=== PATIENT | male | born 1935 ===

== ENCOUNTER 2017-07-07 11:28 | Inpatient (IN) ==
[2017-07-07] MEDS ORDERED: ACETAMINOPHEN 325 MG TABLET PO PRN (11:38)
[2017-07-07] MEDS ORDERED: GLUCAGON 1 MG VIAL IM PRN (11:38)
[2017-07-07] MEDS ORDERED: DEXTROSE 50% 25 GM/50 ML SYRINGE IV PRN (11:38)
[2017-07-07] MEDS ORDERED: ONDANSETRON 4 MG/2 ML VIAL IV PRN (11:38)
--- NOTE | 2017-07-07 11:55 | General Surg History&Physical ---
Assessment and Plan (1) Peripheral arterial disease Problem details: Peripheral arterial disease of the right lower extremity with large ulcerations and significant rest pain. He has an abnormal vascular study from [facility] that warrants at least a CTA and possibly formal arteriogram, but we may be looking at AKA. Status: Acute Assessment and plan: 07/07/17 Admit for baseline labs and, depending on his creatinine, we will plan for CTA vs. formal arteriogram to see if any interventional procedures could be of benefit. Certainly his wounds are very advanced, and will require a prolonged period of care for healing, even with reconstituted blood flow. He and his family are aware of this. (2) Diabetes mellitus Status: Chronic Assessment and plan: Type 2, DM. We will monitor, place on sliding scale insulin, and have Hospital Medicine follow closely with us. We will need to watch his creatinine closely as well, considering that he will likely be placed on antibiotics which could potentially be nephrotoxic. Qualifiers: Diabetes mellitus type: type 2 (3) Ischemic cardiomyopathy Status: Chronic Assessment and plan: History of ischemic cardiac disease. Presently the patient is asymptomatic but appears to be extremely debilitated due to this and his other medical comorbidities. Dr Nelson has followed in the past. We will monitor his labs and fluid intake and get cardiac consult. History of Present Illness Chief complaint: Ischemic right lower leg History of present illness: Mr. Osborne is a 82 year old male Home Medications Medication Instructions Recorded Confirmed Type Aspirin Chew Tab 1 tablet PO DAILY 05/31/15 06/02/16 History Simvastatin [Zocor] 1 tablet PO BEDTIME 05/31/15 06/02/16 History Albuterol Inhaler [Proventil 2 puff INH Q4H PRN #1 inhaler 06/02/15 05/31/16 Rx Inhaler] Furosemide Tab [Lasix Tab] 40 mg PO DAILY 05/03/16 06/02/16 History Allergies Allergy/AdvReac Type Severity Reaction Status Date / Time No Known Allergies Allergy Verified 06/02/16 07:19 Medical,Surgical,& Family Hx - Medical History Cardio: History of: Hypertension, Pacemaker, PVD HEENT: History of: Eye Problem (CATARACTS), Dental Problems Endocrine: History of: Diabetes Mellitus (NIDDM) Rheumatology: History of;: Rheumatoid Arthritis Musculoskeletal: History of: Amputation (LEFT LOWER ;LEG) - Surgical History Cardiac Surgeries: Sugical HX of: Cardiac Catheterization, Cardiac Surgery (CABG ), Internal Defibrillator (dual chamber BiV AICD system DR NELSON) HEENT Surgeries: Surgical HX of: Eye Surgery (COD) - Family History Family History: Reports;: Family Diabetes - Social History Smoking Status: Never smoker Exam - Constitutional General appearance: other (Mr Osborne is a thin, frail appearing elderly [place] male who is somewhat reserved but pleasant, alert, and oriented. He is uncomfortable but cooperative and gives an accurate & appropriate history.) - Head Head exam: Present: normocephalic - Eye Eye exam: Present: EOMI Pupils: Present: YAYO - ENT Mouth exam: Present: normal voice, dry mucosa - Neck Neck exam: Present: trachea midline. Absent: lymphadenopathy - Respiratory Respiratory exam: Present: clear to auscultation bilaterally. Absent: rales, wheezes - Cardiovascular Cardiovascular exam: Present: other (Pacemaker vs ICD palpable in left upper chest; no unusual swelling or tenderness. Normal rate and rhythm without unusual bruit or rub.) - GI/Abdominal GI/Abdominal exam: Present: hypoactive bowel sounds, soft. Absent: guarding, tenderness - Extremities Exam Extremities exam: Present: other (Left AKA, well healed. Right lower extremity is hyperemic with pitting edema. There is diffuse ulceration along the lateral lower leg, ankle, and foot, with moist eschar present along the heel and achilles region, and several punctate deep ulcerations on the anterior lower leg. Absent palpable pulses and capillary refill. ) - Back Exam Back exam: Present: other (He does have some degree of skin breakdown on the sacrum; I am unable to completely assess this area here in the office.) - Skin Skin exam: Present: other (As noted above) - Constitutional Constitutional: Present: anorexia, frequent falls, weakness, weight loss - Cardiovascular Cardiovascular: Present: other (Significant RLE rest pain) - Musculoskeletal Musculoskeletal: Present: muscle weakness Quality Measures - VTE Contraindication to Pharmacological VTE Prophylaxis: High Risk of Bleeding Contraindication to Mechanical VTE Prophylaxis: Ischemic Vascular Disease
--- NOTE | 2017-07-07 13:12 | Cardiology Consult Note ---
<Vianca Malin E - Last Filed: 07/07/17 12:49> Assessment and Plan - Time spent with patient Time spent with patient: Greater than 30 minutes (1) Dyslipidemia Status: Chronic Assessment and plan: SEE PLAN OF CARE LISTED BELOW Current Visit: Yes (2) Leg pain Status: Acute Assessment and plan: SEE PLAN OF CARE LISTED BELOW Current Visit: Yes Qualifiers: Laterality: right Qualified Code(s): M79.604 - Pain in right leg (3) Language barrier Status: Chronic Assessment and plan: SEE PLAN OF CARE LISTED BELOW Current Visit: Yes (4) ICD (implantable cardioverter-defibrillator) in place Status: Chronic Assessment and plan: SEE PLAN OF CARE LISTED BELOW Current Visit: Yes (5) Preoperative cardiovascular examination Status: Acute Assessment and plan: SEE PLAN OF CARE LISTED BELOW Current Visit: Yes (6) Diabetes mellitus Status: Chronic Assessment and plan: SEE PLAN OF CARE LISTED BELOW Current Visit: No Qualifiers: Diabetes mellitus type: type 2 (7) Ischemic cardiomyopathy Status: Chronic Assessment and plan: SEE PLAN OF CARE LISTED BELOW Current Visit: No (8) Coronary artery disease Status: Chronic Assessment and plan: SEE PLAN OF CARE LISTED BELOW Current Visit: No (9) Hx of CABG Status: Chronic Assessment and plan: SEE PLAN OF CARE LISTED BELOW Current Visit: No (10) Hypertension Status: Chronic Assessment and plan: SEE PLAN OF CARE LISTED BELOW Current Visit: No (11) Peripheral arterial disease Problem details: Peripheral arterial disease of the right lower extremity with large ulcerations and significant rest pain. He has an abnormal vascular study from [facility] that warrants at least a CTA and possibly formal arteriogram, but we may be looking at AKA. Status: Chronic Assessment and plan: SEE PLAN OF CARE LISTED BELOW Current Visit: Yes History of Present Illness - Data of Consult Patient: known to practice within the last 3 years Consult date: 07/07/17 Requesting Physician: Madhav Fernandez - Consult Narrative Reason for consult: Preoperative evaluation History of present illness: SECURITIES SALES ASSOCIATE: DR. NELSON Patient does have a language barrier though answering many questions himself, family interprets and gives additional information Mr. Osborne, 82ChM, last seen in cardiology clinic November 24, 2015. Risk factors include: age, known coronary artery disease S/P CABG December 12, 1995 ( GALVEZ -LAD, SVG - Cx, SVG - OM), hypertension, dyslipidemia, diabetes, PVD, sedentary lifestyle, family history premature coronary artery disease, noncompliance. History of ischemic cardiomyopathy S/P Medtronic Bi-V ICD implantation February 19, 2014. Echocardiogram June 01, 2015: EF 15%, global hypokinesis with grade 3 diastolic dysfunction, mild concentric LVH, RVSP 44 mmHg + RAP. Last heart catheterization: July 19, 2013 with the following impression noted: PCI to the left main coronary artery with DENA, PCI to the distal RCA with DENA, PCI with DENA to the proximal portion distal RCA stent overlapping the distal stent. Patient was admitted July 07, [address] Fernandez for further workup of the right lower extremity ulcerations and significant wrist pain. He has an abnormal vascular study from [facility] which warrants a CTA and possibly formal arteriogram. If there are no interventional procedures from which he could benefit he may require amputation. Apparently, he is right lower extremity pain has worsened over the past 3 weeks and for this reason he sought medical attention. Cardiology was consulted for preoperative evaluation and management of his cardiac conditions. Patient is sedentary, sitting in a wheelchair the majority of the day. 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 He has not walked in many years. However, patient and family members deny complaints of chest pain, heaviness, tightness, shortness of breath, presyncope or syncope. He has not followed up with Dr. Nelson since November 2015. He does not recall having his ICD interrogated recently and I find no records to support recent interrogation. At the time of my interview and examination, there are no labs or vital signs recorded. In the past, he has had chronic kidney disease. Today I will start with echocardiogram, EKG. I will also ask that his Medtronic device be interrogated and will try to get him back on track as far as having this routinely evaluated/interrogated. We will adjust medications accordingly during the hospital stay for better blood pressure control and control of his lipids. Wants some of the previously stated information has returned, will better address his perioperative risk category. I will further address with Dr. Bia Rordiguez and await additional recommendations. ASSESSMENT/PLAN: 1. PRE-OPERATIVE RISK ASSESSMENT - echocardiogram, EKG and labs ordered. 2. KNOWN CAD S/P CABG - see above information regarding CABG details and last cardiac catheterization. 3. ICM (EF 15%) WITH BI-V ICD - echocardiogram ordered. 4. HYPERTENSION - will adjust medications accordingly during the hospital stay 5. DYSLIPIDEMIA - lipid profile today or in the morning when fasting. 6. PVD - right lower extremity PVD, severe causing rest pain. May require amputation. 7. DIABETES - sliding scale insulin and adjust medications accordingly 8. NON-COMPLIANCE - reiterated the importance of compliance CC: Madhav Fernandez MD - Home Medications and Allergies Home Medications: Home Medications Medication Instructions Recorded Confirmed Type Aspirin Chew Tab 81 mg PO DAILY 05/31/15 07/07/17 History Simvastatin [Zocor] 20 mg PO BEDTIME 05/31/15 07/07/17 History Albuterol Inhaler [Proventil 2 puff INH Q4H PRN #1 inhaler 06/02/15 07/07/17 Rx Inhaler] Furosemide Tab [Lasix Tab] 40 mg PO DAILY 05/03/16 07/07/17 History Clopidogrel [Plavix] 75 mg PO DAILY 07/07/17 07/07/17 History Docusate Sodium 100 mg PO BID 07/07/17 07/07/17 History Glimepiride 2 mg PO DAILY 07/07/17 07/07/17 History Lisinopril 5 mg PO DAILY 07/07/17 07/07/17 History Pantoprazole Tab [Protonix Tab] 40 mg PO DAILY 07/07/17 07/07/17 History Polyethylene Glycol Powder 17 gm PO BEDTIME 07/07/17 07/07/17 History [Miralax] Allergies/Adverse Reactions: Allergies Allergy/AdvReac Type Severity Reaction Status Date / Time No Known Allergies Allergy Verified 06/02/16 07:19 Review of systems: REVIEW OF SYSTEMS: - Constitutional Constitutional: Denies fatigue. Absent: syncope, anorexia, night sweats - EENT Eyes: Absent: blurry vision, loss of vision, diplopia Ears: Absent: decreased hearing, ear pain, ear discharge - Cardiovascular Cardiovascular: Denies chest pain with exertion, dyspnea, edema, palpitations. Absent: chest pain with deep breath - Respiratory Respiratory: Denies LOPEZ, cough. Absent: wheezing, hemoptysis, change in phlegm color - Gastrointestinal Gastrointestinal: Denies constipation. Absent: abdominal pain, hematemesis, hematochezia, melena, change in bowel habits, nausea - Genitourinary Genitourinary: Absent: difficulty urinating, dysuria, urinary hesitancy, flank pain - Musculoskeletal Musculoskeletal: Present: back pain. Right lower extremity pain at rest. Absent: joint swelling, muscle cramps - Neurological Neurological: Present: Denies hemiparesis, dizziness, syncope or presyncope. Denies seizure activity. - Psychiatric Psychiatric: Absent: anxiety, depression, difficulty concentrating - Endocrine Endocrine: Absent: cold intolerance, heat intolerance, polyuria, polyphagia, polydipsia - Hematologic/Lymphatic Hematologic/Lymphatic: Present: easy bruising. Absent: easy bleeding -Integumentary Integumentary: Right lower extremity wounds but otherwise denies lesions, rashes , skin breakdown Medical,Surgical,& Family Hx - Medical History Cardio: History of: CAD, Hypertension, Pacemaker, PVD HEENT: History of: Eye Problem (CATARACTS), Dental Problems Endocrine: History of: Diabetes Mellitus (NIDDM) Rheumatology: History of;: Rheumatoid Arthritis Musculoskeletal: History of: Amputation (LEFT LOWER ;LEG) - Surgical History Cardiac Surgeries: Sugical HX of: Cardiac Catheterization, Cardiac Surgery (CABG ), Internal Defibrillator (dual chamber BiV AICD system DR NELSON) HEENT Surgeries: Surgical HX of: Eye Surgery (COD) - Family History Family History: Reports;: Family Diabetes - Social History Smoking Status: Never smoker Have you smoked in the last 12 months: No Functional capacity: wheelchair bound Physical Examination Exam: General: [Appears well with no apparent distress.] [Pleasant and cooperative. ] [Appears comfortable.] HEENT: [Bilateral arcus, poor dentition, normocephalic, atraumatic. Mucous membranes moist. No jaundice noted. Conjunctiva moist and clear, sclerae anicteric] Neck: No JVD/HJR, no thyromegaly or lymphadenopathy noted. No carotid bruit appreciated Cardiac: [Regular rate and rhythm.] [No obvious murmur rub or gallop.] Left precordial area with ICD noted. Lungs: [Clear to auscultation without accessory muscle use to assist the respiratory pattern.] Not requiring oxygen Abdomen: Soft, bowel sounds normoactive. Nontender and nondistended. No abdominal bruit or thrill noted. No masses noted. Musculoskeletal: No fluid collection. Decreased range of motion is noted, particularly the right lower extremity. Extremities: No clubbing, cyanosis noted. [ No edema noted.] Upper extremity pulses 2+. Left [id number] amputation. Right lower extremity wrapped. Skin: Midsternal incision with dime size lesion noted. No skin breakdown appreciated. Cannot assess right lower extremity as it is wrapped. Neuro: Awake, alert and cooperative. No essential tremor is appreciated. Result/EKG - Diagnostic Findings Procedure: Chest x-ray: pending Quality Measures - VTE Contraindication to Pharmacological VTE Prophylaxis: High Risk of Bleeding Contraindication to Mechanical VTE Prophylaxis: Ischemic Vascular Disease <Bia Rodriguez - Last Filed: 07/07/17 18:07> History of Present Illness - Consult Narrative History of present illness: I have personally interviewed and evaluated the patient, reviewed the chart and discussed medical decision-making with Practitioner Dea. I have read this note and agree with her documentation here in. CC: Madhav Fernandez MD Physical Examination Vital Signs Temp Pulse Resp BP 97.8 F 83 18 140/65 07/07/17 12:15 07/07/17 12:15 07/07/17 12:15 07/07/17 12:15 Result/EKG - Labs CBC & BMP: 07/07/17 13:57 07/07/17 13:57 Labs: Laboratory Results - last 24 hr 07/07/17 07/07/17 07/07/17 13:57 13:57 13:57 WBC 7.8 RBC 3.56 L Hgb 10.7 L Hct 30.8 L MCV 86.5 L MCH 30 MCHC 34.7 RDW 13.4 Plt Count 261 MPV 9.4 L Neut % (Auto) 79.8 H Lymph % (Auto) 10.9 L Hill % (Auto) 8.5 Eos % (Auto) 0.1 Baso % (Auto) 0.3 Neut # (Auto) 6.2 Lymph # (Auto) 0.9 L Hill # (Auto) 0.7 Eos # (Auto) 0.0 Baso # (Auto) 0.0 Immature Gran % 0.4 Nucleated RBC % 0.0 Immature Gran # 0.03 Nucleated RBCs # 0.00 Immature Plt Fraction 0.0 Sodium 140 141 Potassium 4.2 4.2 Chloride 107 108 H Carbon Dioxide 24 23 Anion Gap 13.2 14.2 BUN 41 H 42 H Creatinine 1.70 H 1.70 H GFR Calculation 36 36 BUN/Creatinine Ratio 24.00 H 24.00 H Glucose 74 74 POC Glucose Calculated Osmolality 287.4 290.3 Calcium 8.4 L 8.4 L Magnesium 2.3 Total Bilirubin 0.70 AST 41 H ALT 16 Alkaline Phosphatase 93 Total Protein 6.8 Albumin 2.6 L Globulin 4.2 H Albumin/Globulin Ratio 0.6 L 07/07/17 15:57 WBC RBC Hgb Hct MCV MCH MCHC RDW Plt Count MPV Neut % (Auto) Lymph % (Auto) Hill % (Auto) Eos % (Auto) Baso % (Auto) Neut # (Auto) Lymph # (Auto) Hill # (Auto) Eos # (Auto) Baso # (Auto) Immature Gran % Nucleated RBC % Immature Gran # Nucleated RBCs # Immature Plt Fraction Sodium Potassium Chloride Carbon Dioxide Anion Gap BUN Creatinine GFR Calculation BUN/Creatinine Ratio Glucose POC Glucose 107 H Calculated Osmolality Calcium Magnesium Total Bilirubin AST ALT Alkaline Phosphatase Total Protein Albumin Globulin Albumin/Globulin Ratio
--- NOTE | 2017-07-07 13:14 | Hospitalist History & Physical ---
<Staci Garcia - Last Filed: 07/07/17 13:24> Assessment and Plan - Time spent with patient Time spent with patient: Greater than 30 minutes (1) Dyslipidemia Status: Chronic Assessment and plan: 82-year-old male with multiple medical problems admitted by Dr. Fernandez from surgery for evaluation for right lower extremity wounds. Hospitalists been consulted to assist in her medical management. Patient does have diabetes and sliding scale insulin has been ordered. We will continue to monitor these and adjust as needed. Patient's medicines have yet to be put into the system and once they are they will be reconciled and appropriate medicines will be restarted. Patient also has hypertension and ischemic cardiomyopathy that cardiology is following as well. Patient has an area on the distal aspect of the sternal scar that looks like it has drained at one point and is very tender to touch. Will get Gretel from wound care to evaluate. Dr. De Luna will see and examine patient and further recommendations to follow. Current Visit: Yes (2) ICD (implantable cardioverter-defibrillator) in place Status: Chronic Current Visit: Yes (3) Peripheral arterial disease Problem details: Peripheral arterial disease of the right lower extremity with large ulcerations and significant rest pain. He has an abnormal vascular study from [facility] that warrants at least a CTA and possibly formal arteriogram, but we may be looking at AKA. Status: Chronic Current Visit: Yes (4) Renal insufficiency Status: Acute Current Visit: No (5) CHF (congestive heart failure) Status: Chronic Current Visit: No Qualifiers: Congestive heart failure type: combined Congestive heart failure chronicity : acute on chronic Qualified Code(s): I50.43 - Acute on chronic combined systolic (congestive) and diastolic (congestive) heart failure (6) Coronary artery disease Status: Chronic Current Visit: No (7) Diabetes mellitus Status: Chronic Current Visit: No Qualifiers: Diabetes mellitus type: type 2 (8) Hx of CABG Status: Chronic Current Visit: No (9) Hypertension Status: Chronic Current Visit: No (10) Ischemic cardiomyopathy Status: Chronic Current Visit: No History of Present Illness Chief complaint: Right lower extremity wound History of present illness: Mr. 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 Fernandez for nonhealing wounds of his right lower extremity. Patient has large ulcerations and significant rest pain with an abnormal vascular study from the [facility]. Patient is being admitted for CTA and possible arteriogram to see if patient is a candidate for bypass or AKA. Patient's only complaints right now are some minimal right lower extremity pain. He denies headache, shortness of breath, chest pain, abdominal pain, constipation or diarrhea, lower extremity edema. All patient's labs and vitals are all pending complete admission. Hospitalists have been consulted to assist in management of his medical problems. Cardiology has also been consulted for his ischemic cardiomyopathy. Patient's medicines will be reconciled once they are entered into the system and patient is a full code. Home Medications Medication Instructions Recorded Confirmed Type Aspirin Chew Tab 81 mg PO DAILY 05/31/15 07/07/17 History Simvastatin [Zocor] 20 mg PO BEDTIME 05/31/15 07/07/17 History Albuterol Inhaler [Proventil 2 puff INH Q4H PRN #1 inhaler 06/02/15 07/07/17 Rx Inhaler] Furosemide Tab [Lasix Tab] 40 mg PO DAILY 05/03/16 07/07/17 History Clopidogrel [Plavix] 75 mg PO DAILY 07/07/17 07/07/17 History Docusate Sodium 100 mg PO BID 07/07/17 07/07/17 History Glimepiride 2 mg PO DAILY 07/07/17 07/07/17 History Lisinopril 5 mg PO DAILY 07/07/17 07/07/17 History Pantoprazole Tab [Protonix Tab] 40 mg PO DAILY 07/07/17 07/07/17 History Polyethylene Glycol Powder 17 gm PO BEDTIME 07/07/17 07/07/17 History [Miralax] Allergies Allergy/AdvReac Type Severity Reaction Status Date / Time No Known Allergies Allergy Verified 06/02/16 07:19 Medical,Surgical,& Family Hx - Medical History Cardio: History of: Hypertension, Pacemaker, PVD HEENT: History of: Eye Problem (CATARACTS), Dental Problems Endocrine: History of: Diabetes Mellitus (NIDDM) Rheumatology: History of;: Rheumatoid Arthritis Musculoskeletal: History of: Amputation (LEFT LOWER ;LEG) - Surgical History Cardiac Surgeries: Sugical HX of: Cardiac Catheterization, Cardiac Surgery (CABG ), Internal Defibrillator (dual chamber BiV AICD system DR CAVAZOS) HEENT Surgeries: Surgical HX of: Eye Surgery (COD) Orthopedic Surgeries: Surgical HX of;: Orthopedic Surgery - Family History Family History: Reports;: Family Diabetes - Social History Smoking Status: Former smoker Frequency of Alcohol Use: None Type of Drug Use: None Marital Status: Single Lives With:: Children Functional capacity: wheelchair bound Review of systems: A complete 10 system review of systems was obtained and pertinent positives and negatives per HPI Exam - Constitutional Exam: Constitutional System: No distress. No tremulousness. Head: Normocephalic, atraumatic. Ears, Nose and Throat System: No evidence of Otitis or Mastoiditis. No epistaxis or discharge Eyes System: Pupils equal, round, and reactive. Extraocular muscles intact. Neck: Supple, without adenopathy, No jugular venous distention. No thyromegaly, neck mass, or prior surgery apparent. Respiratory System: Chest clear to auscultation. Cardiovascular System: Heart with regular rate and rhythm. No murmur. GI System: Abdomen soft, nontender. Normo active bowel sounds present. Musculoskeletal System: Well-healed left AKA incision. Right lower extremity with cellulitis and some pitting edema in the ankle. There is an ulcer along the lateral lower leg ankle and foot with eschar. There are no palpable pulses. Neurological System: No discernable sensory deficit. No aphasia Psychiatric System: Conversation is rational Patient does have an area on the distal portion of his old CABG scar that looks like it previously drained. It is very tender to touch. Results - Labs Labs: Labs are pending - Impressions EKG is pending Quality Measures - VTE Contraindication to Pharmacological VTE Prophylaxis: High Risk of Bleeding Contraindication to Mechanical VTE Prophylaxis: Ischemic Vascular Disease <Gaetano De Luna - Last Filed: 07/07/17 15:23> Assessment and Plan (1) Diabetes mellitus Status: Chronic Assessment and plan: Impression: 1. Type II DM 2. Peripheral arterial disease, likely multifactorial in etiology 3. Coronary disease, likely multifactorial in etiology Recommendations: We have ordered a sliding scale with insulin. Hold off on any oral agents for now until we ensure adequate oral intake. I am seeing this patient in colllaboration with the advanced pediatrician active practice. I performed the essential elements of the history and examination, and agree with the evaluation as entered, except as noted above. Current Visit: No Qualifiers: Diabetes mellitus type: type 2 Diabetes mellitus complication status: with circulatory complication Diabetes mellitus intermediate designer insulin use: without intermediate designer use History of Present Illness History of present illness: Mr. Osborne is a 82 year old male History is as described above. The patient reports that he has been diabetic for about 20 years, and is managed with oral hypoglycemic agents. He was admitted to the surgery service for management of a chronic wound on the right lower extremity. We were consulted to manage his diabetes. He also has a pacemaker and an ischemic cardiomyopathy, and cardiology has been consulted for management of those particular problems. Exam - Constitutional Vitals: Period Temp Pulse Resp BP Sys/[place] Pulse Ox Last 24 Hr 97.8 F 83 18 140/65 Exam: Examination is as described above. Cardiac examination reveals a paced rhythm with an S4 at the left sternal border. He has a 2/6 systolic ejection murmur at left sternal border. Left-sided AKA incision looks good. Right leg is bandaged. Results - Labs CBC & BMP: 07/07/17 13:57 07/07/17 13:57
--- NOTE | 2017-07-07 13:35 | EKG Report ---
Stationary ECG Study [facility] Test Date: 07/07/2017 1:36:04 PM Pat Name: Mary STILES Department: Room: 333 Gender: M Feather Maker: : [id number] Requested by: Vianca Bailey Order Number: [id number] Reading MD: KHADIJAH BENAVIDES Intervals Woody Rate: 73 P: 59 SC: 152 QRS: 268 QRSD: 153 T: 87 QT: 453 QTc: 479 Interpretive Statements ELECTRONIC VENTRICULAR PACEMAKER NORMAL SINUS RHYTHM WITH ATRIAL PREMATURE COMPLEXES Electronically Signed On 07-08-17 18:52:50 CDT by KHADIJAH BENAVIDES [email or web address]
[2017-07-07 14:10] LABS: Basophils % 0.3 % (0.0-0.8); Eosinophils % 0.1 % (0.00-10.9); Hematocrit 30.8 VOL% (42.0-52.0); Hemoglobin 10.7 GM/DL (14.0-18.0); Immature Granulocytes % 0.4 %; Immature Granulocytes Absolute 0.03 #; Lymphocytes # 0.9 10*3/uL (1.4-4.0); Lymphocytes % 10.9 % (21.2-54.2); Mean Corpuscular HGB Conc 34.7 GM/DL (32-36); Mean Corpuscular Hemoglobin 30 PG (27-34); Mean Corpuscular Volume 86.5 FL (87-102); Mean Platelet Volume 9.4 FL (9.6-12.0); Monocytes # 0.7 10*3/uL (0.11-0.8); Monocytes % 8.5 % (1.7-12.7); Neutrophils # 6.2 10*3/uL (1.4-7.4); Neutrophils % 79.8 % (38.7-73.9); Platelet Count 261 T/CUMM (130-400); Red Blood Count 3.56 MC/CUMM (3.8-5.5); Red Cell Distribution Width 13.4 % (9.3-17.3); White Blood Count 7.8 T/CUMM (4-12)
[2017-07-07 14:38] LABS: Calcium 8.4 MG/DL (8.5-10.1); Magnesium 2.3 MG/DL (1.8-2.4); Osmolality,Calculated 290.3 MOS/KG (273-304); Potassium 4.2 MMOL/L (3.5-5.1)
[2017-07-07 14:42] LABS: Albumin 2.6 G/DL (3.4-5.0); Bilirubin,Total 0.7 MG/DL (0.2-1.0); Calcium 8.4 MG/DL (8.5-10.1); Osmolality,Calculated 287.4 MOS/KG (273-304); Potassium 4.2 MMOL/L (3.5-5.1); Total Protein 6.8 G/DL (6.4-8.3)
[2017-07-07] MEDS: INSULIN REGULAR 100 UNIT/ML SUBCUT SCH ×2 (17:49→21:18)
[2017-07-08 05:55] LABS: Basophils % 0.5 % (0.0-0.8); Eosinophils % 0.5 % (0.00-10.9); Hematocrit 30.6 VOL% (42.0-52.0); Hemoglobin 10.3 GM/DL (14.0-18.0); Immature Granulocytes % 0.5 %; Immature Granulocytes Absolute 0.04 #; Lymphocytes # 1.1 10*3/uL (1.4-4.0); Lymphocytes % 14.9 % (21.2-54.2); Mean Corpuscular HGB Conc 33.7 GM/DL (32-36); Mean Corpuscular Hemoglobin 30 PG (27-34); Mean Corpuscular Volume 87.9 FL (87-102); Mean Platelet Volume 9.6 FL (9.6-12.0); Monocytes # 0.8 10*3/uL (0.11-0.8); Monocytes % 9.9 % (1.7-12.7); Neutrophils # 5.6 10*3/uL (1.4-7.4); Neutrophils % 73.7 % (38.7-73.9); Platelet Count 238 T/CUMM (130-400); Red Blood Count 3.48 MC/CUMM (3.8-5.5); Red Cell Distribution Width 13.6 % (9.3-17.3); White Blood Count 7.6 T/CUMM (4-12)
[2017-07-08 06:27] LABS: Calcium 8.2 MG/DL (8.5-10.1); Magnesium 2.4 MG/DL (1.8-2.4); Potassium 4.5 MMOL/L (3.5-5.1); Risk Ratio 5.42; VLDL CHOLESTEROL 23.8 MG/DL
--- NOTE | 2017-07-08 08:19 | ECHO Report ---
Mary Osborne Exam Date: 07/07/2017 13:47 Referring Physician: Technologist: Letty Mistry Age: 82 Ht (in): 64 Wt (lb): 145 Gender: M Exam [facility]: [facility] Echo Indications: Diabetes, Hx. CABG, COPD, dyslipidemia, leg pain, ICD BP: 140 / 65 HR: 73 Rhythm: sinus Technical Quality: Technically difficult study IMPRESSIONS Moderately depressed LV function with EF estimated to be 30% with inferior and inferoseptal hypokinesis. Mild concentric left ventricular hypertrophy with Grade I diastolic dysfunction. Tricuspid regurgitation velocities suggest a RVSP of 19 mmHg + RAP. The tricuspid valve is thickened and hyperechoic. MEASUREMENTS (Male / Female) Normal Values 2D ECHO LV Diastolic Diameter PLAX 5.0 cm 4.2 - 5.9 / 3.9 - 5.3 cm LV Systolic Diameter PLAX 3.9 cm LV Fractional Shortening PLAX 22.0 % IVS Diastolic Thickness 1.2 cm 0.6 - 1.0 / 0.6 - 0.9 cm LVPW Diastolic Thickness 1.2 cm 0.6 - 1.0 / 0.6 - 0.9 cm Aortic Root Diameter 2.6 cm LA Systolic Diameter LX 3.3 cm 3.0 - 4.0 / 2.7 - 3.8 cm DOPPLER TR Peak Velocity 216.0 cm/s TR Peak Gradient 18.7 mmHg FINDINGS Left Ventricle Normal left ventricular cavity size. Mild concentric left ventricular hypertrophy with Grade I diastolic dysfunction. Moderately depressed LV function with EF estimated to be 30% with inferior and inferoseptal hypokinesis. Right Ventricle Normal right ventricular size. There is an ICD lead seen in the right ventricle. Right Atrium Normal right atrial size. Left Atrium Normal left atrial size. Mitral Valve Mildly thickened mitral valve. Aortic Valve Mild aortic valve sclerosis without stenosis or regurgitation. Tricuspid Valve The tricuspid valve is thickened and hyperechoic. Trace tricuspid valve regurgitation. Tricuspid regurgitation velocities suggest a RVSP of 19 mmHg + RAP. Pulmonic Valve Pulmonic valve not well visualized. Pericardium No pericardial effusion. Aorta Normal size aortic root and proximal ascending aorta. Mara Stoner (Electronically Signed) Final Date: 08 July 2017 08:18
[2017-07-08] MEDS: INSULIN REGULAR 100 UNIT/ML SUBCUT SCH ×4 (08:42→21:00)
[2017-07-08] MEDS: PANTOPRAZOLE 40 MG TABLET PO SCH (08:42)
--- NOTE | 2017-07-08 10:10 | Hospitalist Progress Note ---
Assessment and Plan (1) Diabetes mellitus Status: Chronic Assessment and plan: Impression: 1. Type II DM 2. Peripheral arterial disease, likely multifactorial in etiology 3. Coronary disease, likely multifactorial in etiology 4. Chronic systolic congestive heart failure Recommendations: Continue current regimen for glucose control. This note was completed using [employer] voice recognition software. There may be hide or skin buffer errors as a result. Current Visit: Yes Qualifiers: Diabetes mellitus type: type 2 Diabetes mellitus complication status: with circulatory complication Diabetes mellitus skilled nursing insulin use: without terminal manager use Hospitalist: Subjective Interval history: Follow-up type II DM. The patient has had an echocardiogram that showed an ejection fraction of 30%. He just had his defibrillator checked. The pacemaker welding equipment sales representative tells me that the defibrillator appears to be functioning normally. Glucoses are well controlled on his current regimen. Exam - Constitutional Vitals: Period Temp Pulse Resp BP Sys/Valle[place] Pulse Ox Last 24 Hr 97.1 F-99.4 F 62-83 17-19 110-154/62-71 96-100 Vital signs are noted above. Heart is regular with distant tones and a soft systolic murmur. Lungs are clear anteriorly. Right leg is bandaged. He is awake and conversant. Results - Labs CBC & BMP: 07/08/17 05:15 07/08/17 05:15 Lab Results: I have reviewed the past 24 hour labs Quality Measures - VTE Contraindication to Pharmacological VTE Prophylaxis: High Risk of Bleeding Contraindication to Mechanical VTE Prophylaxis: Ischemic Vascular Disease
[2017-07-08] MEDS: LISINOPRIL 5 MG TABLET PO SCH (10:54)
[2017-07-08] MEDS: ASPIRIN CHEW 81 MG TABLET PO SCH (10:54)
[2017-07-08] MEDS: FUROSEMIDE 40 MG TABLET PO SCH (10:54)
[2017-07-08] MEDS ORDERED: ZINC OXIDE PASTE 113 GM TUBE TOP PRN (11:15)
[2017-07-08] MEDS ORDERED: ALBUTEROL 2.5 MG/3 ML NEB RESP TX PRN (12:20)
[2017-07-08] MEDS ORDERED: SKIN HEALING OINT (AQUAPHOR) 50 GM TUBE TOP PRN (12:23)
[2017-07-08] MEDS ORDERED: ENOXAPARIN 30 MG/0.3 ML SYRINGE SUBCUT SCH (12:30)
[2017-07-08] MEDS ORDERED: BACITRACIN OINT 0.9 GM PACK TOP SCH (12:30)
[2017-07-08] MEDS: SODIUM CHLORIDE 0.9% 1,000 ML IV SCH (13:01)
--- NOTE | 2017-07-08 13:38 | Nephrology Consult Note ---
History of Present Illness Chief complaint: CKD Stage 2, DM, perip vas dis History of present illness: Mr. Osborne is a 82 year old male with stage II chronic kidney disease and a creatinine of 1.8. He has long-standing diabetes mellitus for which he takes oral agents. He is admitted with a painful right lower extremity with evidence of significant ischemia. He is status post left above-knee amputation. We are asked to see him because of a need for imaging the arterial circulation in the presence of his renal impairment. On exam he is a pleasant gentleman in no acute distress he is quite sleepy but is easily arousable. His neck without jugular venous distention heart without rub or gallop lungs are clear the abdomen soft nontender extremities right lower extremity is heavily bandaged left leg is absent above the knee. He also has a cardiomyopathy with an ejection fraction reported of 30% he has a pacer in place as well. Impression stage II chronic kidney disease #2 diabetes mellitus #3 cardiomyopathy with ischemic heart disease status post coronary artery bypass grafting Plan he is already taking Mucomyst and seems well hydrated. I think we could proceed with contrast administration using whichever technique would allow him to get as little contrast as possible. Home Medications Medication Instructions Recorded Confirmed Type Aspirin Chew Tab 81 mg PO DAILY 05/31/15 07/07/17 History Simvastatin [Zocor] 20 mg PO BEDTIME 05/31/15 07/07/17 History Albuterol Inhaler [Proventil 2 puff INH Q4H PRN #1 inhaler 06/02/15 07/07/17 Rx Inhaler] Furosemide Tab [Lasix Tab] 40 mg PO DAILY 05/03/16 07/07/17 History Clopidogrel [Plavix] 75 mg PO DAILY 07/07/17 07/07/17 History Docusate Sodium 100 mg PO BID 07/07/17 07/07/17 History Glimepiride 2 mg PO DAILY 07/07/17 07/07/17 History Lisinopril 5 mg PO DAILY 07/07/17 07/07/17 History Pantoprazole Tab [Protonix Tab] 40 mg PO DAILY 07/07/17 07/07/17 History Polyethylene Glycol Powder 17 gm PO BEDTIME 07/07/17 07/07/17 History [Miralax] Allergies Allergy/AdvReac Type Severity Reaction Status Date / Time No Known Allergies Allergy Verified 06/02/16 07:19 Medical,Surgical,& Family Hx - Medical History Cardio: History of: CAD, Hypertension, Pacemaker, PVD HEENT: History of: Eye Problem (CATARACTS), Dental Problems Endocrine: History of: Diabetes Mellitus (NIDDM) Rheumatology: History of;: Rheumatoid Arthritis Respiratory: History of: Bronchitis, COPD Musculoskeletal: History of: Amputation (LT AKA) - Surgical History Cardiac Surgeries: Sugical HX of: Cardiac Catheterization, Cardiac Surgery (CABG ), Internal Defibrillator (dual chamber BiV AICD system DR CAVAZOS) HEENT Surgeries: Surgical HX of: Eye Surgery (COD) Orthopedic Surgeries: Surgical HX of;: Orthopedic Surgery - Family History Family History: Reports;: Family Diabetes - Social History Smoking Status: Former smoker Frequency of Alcohol Use: None Type of Drug Use: None Review of Systems 12 point system: reviewed and no additional remarkable complaints except as stated Exam - Vital Signs Vital signs: Period Temp Pulse Resp BP Sys/Vallejo Pulse Ox Last 24 Hr 97.1 F-99.4 F 62-86 17-20 110-154/62-71 96-100 - General Appearance General appearance: well-developed, well-nourished, appears started age EENT: ATNC Neck: no JVD, no thyromegaly, no carotid bruit, supple Respiratory: no kyphosis, no scoliosis Cardiology: no murmurs, no rub, no gallops, no edema, regular rate, regular rhythm, normal S1, normal S2 Gastrointestinal: normoactive bowel sounds Integumentary: no rash, warm and dry Neurologic: no focal deficit, no asterixis, alert and oriented x3, reflexes 2+ and symmetric, gait normal, strength 5/5 Musculoskeletal: no deformities, no erythema, no cyanosis, no clubbing Psychiatric: mood/affect appropriate, cooperative Results - Labs CBC & BMP: 07/08/17 05:15 07/08/17 05:15 Assessment and Plan - Time spent with patient Time spent with patient: Greater than 30 minutes (1) CKD stage 2 due to type 2 diabetes mellitus Status: Acute Assessment and plan: Long-standing diabetes mellitus Current Visit: Yes (2) Diabetes mellitus Status: Chronic Current Visit: Yes Qualifiers: Diabetes mellitus type: type 2 Diabetes mellitus complication status: with circulatory complication Diabetes mellitus buttermilk drier operator insulin use: without buttermilk drier operator use (3) Peripheral arterial disease Problem details: Peripheral arterial disease of the right lower extremity with large ulcerations and significant rest pain. He has an abnormal vascular study from [facility] that warrants at least a CTA and possibly formal arteriogram, but we may be looking at AKA. Status: Chronic Current Visit: Yes Specialty Discharge - Follow Up or Referrals - Speciality Discharge Instructions Nephrology Instructions: I think is reasonable to proceed with CT angiogram using as little contrast as possible. We have talked with Dr. Gross and it sounds like CT angiogram would wind up using less contrast.
--- NOTE | 2017-07-08 15:36 | General Surgery Progress Note ---
Assessment and Plan (1) Peripheral arterial disease Problem details: Peripheral arterial disease of the right lower extremity with large ulcerations and significant rest pain. He has an abnormal vascular study from [facility] that warrants at least a CTA and possibly formal arteriogram, but we may be looking at AKA. Status: Chronic Assessment and plan: 07/07/17 Admit for baseline labs and, depending on his creatinine, we will plan for CTA vs. formal arteriogram to see if any interventional procedures could be of benefit. Certainly his wounds are very advanced, and will require a prolonged period of care for healing, even with reconstituted blood flow. He and his family are aware of this. 07/08/2017. Peripheral arterial disease with ischemic right lower extremity right lower extremity. His creatinine is elevated, unfortunately limiting her ability to proceed with investigation with CTA. We have consulted nephrology, and are administering gentle IV fluids and Mucomyst. We will go ahead and schedule this for Tuesday and hopefully will have a better idea of the extensive nature of his disease. His family was not present during this visit, however no surgery can be planned at this point until we are better able to determine how extensive his occlusion may be. Current Visit: Yes (2) Diabetes mellitus Status: Chronic Assessment and plan: Type 2, DM. We will monitor, place on sliding scale insulin, and have Hospital Medicine follow closely with us. We will need to watch his creatinine closely as well, considering that he will likely be placed on antibiotics which could potentially be nephrotoxic. 07/08/2017. Type 2 diabetes. Hospital medicine is following Current Visit: Yes Qualifiers: Diabetes mellitus type: type 2 Diabetes mellitus complication status: with circulatory complication Diabetes mellitus usp insulin use: without terminal operations manager use (3) Ischemic cardiomyopathy Status: Chronic Assessment and plan: History of ischemic cardiac disease. Presently the patient is asymptomatic but appears to be extremely debilitated due to this and his other medical comorbidities. Dr Nelson has followed in the past. We will monitor his labs and fluid intake and get cardiac consult. 07/08/2017. Ischemic cardiomyopathy with ICD in place. He is being followed by Vianca NEVES and . An echocardiogram and EKG have been performed and his medications have been adjusted. We appreciate them following along with this during the perioperative period. Current Visit: Yes Subjective Patient reports: Present: no new complaints Exam - Constitutional Vitals: Period Temp Pulse Resp BP Sys/[place] Pulse Ox Last 24 Hr 97.1 F-99.4 F 62-86 17-20 110-154/62-71 96-100 General appearance: other (Patient is sitting up in his room, without complaints.) - Respiratory Respiratory exam: Absent: rales, wheezes - GI/Abdominal GI/Abdominal exam: Present: hypoactive bowel sounds, soft - Extremities Exam Extremities exam: Present: other (Right lower extremity dressing is in place and is dry. His wound was not examined at this visit.) - Neurological Exam Neurological exam: Present: other (Patient is alert, but is hard of hearing. ) Speech: Present: normal (Language barrier makes it difficult to communicate verbally with the patient, but his speech is normal and not slurred.) Results - Labs CBC & BMP: 07/08/17 05:15 07/08/17 05:15 Lab Results: I have reviewed the past 24 hour labs (Labs noted, in particular creatinine is elevated at 1.8.) Quality Measures - VTE Contraindication to Pharmacological VTE Prophylaxis: High Risk of Bleeding Contraindication to Mechanical VTE Prophylaxis: Ischemic Vascular Disease
[2017-07-08] MEDS: PENTOXIFYLLINE 400 MG TABLET PO SCH ×2 (16:54→20:21)
--- NOTE | 2017-07-08 19:50 | Cardiology Progress Note ---
Adam Rider April RN, am scribing for, and in the presence of, Bia Rodriguez MD 19:49. Assessment and Plan (1) Leg pain Status: Acute Current Visit: Yes Qualifiers: Laterality: right Qualified Code(s): M79.604 - Pain in right leg (2) Preoperative cardiovascular examination Status: Acute Current Visit: Yes (3) Dyslipidemia Status: Chronic Current Visit: Yes (4) ICD (implantable cardioverter-defibrillator) in place Status: Chronic Current Visit: Yes (5) Language barrier Status: Chronic Current Visit: Yes (6) Peripheral arterial disease Problem details: Peripheral arterial disease of the right lower extremity with large ulcerations and significant rest pain. He has an abnormal vascular study from [facility] that warrants at least a CTA and possibly formal arteriogram, but we may be looking at AKA. Status: Chronic Current Visit: Yes (7) Coronary artery disease Status: Chronic Current Visit: Yes (8) Diabetes mellitus Status: Chronic Current Visit: Yes Qualifiers: Diabetes mellitus type: type 2 Diabetes mellitus complication status: with circulatory complication Diabetes mellitus snf insulin use: without snf use (9) Hx of CABG Status: Chronic Current Visit: Yes (10) Hypertension Status: Chronic Current Visit: Yes (11) Ischemic cardiomyopathy Status: Chronic Current Visit: Yes Cardiology - PN: Subj Interval history: COSTUME SEAMSTRESS: DR. NELSON Patient does have a language barrier though answering many questions himself, family interprets and gives additional information Summary: Mr. Osborne, 82ChM, last seen in cardiology clinic November 24, 2015. Risk factors include: age, known coronary artery disease S/P CABG December 12, 1995 (GALVEZ -LAD, SVG - Cx, SVG - OM), hypertension, dyslipidemia, diabetes, PVD , sedentary lifestyle, family history premature coronary artery disease, noncompliance. History of ischemic cardiomyopathy S/P Medtronic Bi-V ICD implantation February 19, 2014. Echocardiogram June 01, 2015: EF 15%, global hypokinesis with grade 3 diastolic dysfunction, mild concentric LVH, RVSP 44 mmHg + RAP. Last heart catheterization: July 19, 2013 with the following impression noted: PCI to the left main coronary artery with DENA, PCI to the distal RCA with DENA, PCI with DENA to the proximal portion distal RCA stent overlapping the distal stent. Patient was admitted July 07, [address] Fernandez for further workup of the right lower extremity ulcerations and significant wrist pain. He has an abnormal vascular study from [facility] which warrants a CTA and possibly formal arteriogram. If there are no interventional procedures from which he could benefit he may require amputation. Apparently, he is right lower extremity pain has worsened over the past 3 weeks and for this reason he sought medical attention. Cardiology was consulted for preoperative evaluation and management of his cardiac conditions. Patient is sedentary, sitting in a wheelchair the majority of the day. 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 He has not walked in many years. However, patient and family members deny complaints of chest pain, heaviness, tightness, shortness of breath, presyncope or syncope. He has not followed up with Dr. Nelson since November 2015. He does not recall having his ICD interrogated recently and I find no records to support recent interrogation. At the time of my interview and examination, there are no labs or vital signs recorded. In the past, he has had chronic kidney disease. July 07, 2017: Today I will start with echocardiogram, EKG. I will also ask that his Medtronic device be interrogated and will try to get him back on track as far as having this routinely evaluated/interrogated. We will adjust medications accordingly during the hospital stay for better blood pressure control and control of his lipids. Wants some of the previously stated information has returned, will better address his perioperative risk category. I will further address with Dr. Bia Rodriguez and await additional recommendations. July 08, 2017: Mr. Osborne is seen resting in bed. He denies any chest pain or shortness of breath. He states he had a pain pill earlier for discomfort to his right lower extremity and he says this has eased up. His blood pressures have been elevated, his home medications have not been restarted. Will restart lisinopril 5 mg daily. Pacemaker was interrogated by [employer] rep. Reportedly checked fine with no episodes of atrial fibrillation. Was noted if he requires surgery, magnet will need to be placed to pacemaker. ASSESSMENT/PLAN: 1. PRE-OPERATIVE RISK ASSESSMENT - He has CM and CAD, but does not appear to be in CHF or experiencing an ACS. He will be moderate risk of perioperative cardiovascular complications with planned surgery. With urgent surgery, these risks are not prohbitive. Elective surgery would require further work-up. 2. KNOWN CAD S/P CABG - see above information regarding CABG details and last cardiac catheterization. 3. ICM (EF 30%) WITH BI-V ICD -echocardiogram with ejection fraction 30%. Not in CHF. 4. HYPERTENSION - will adjust medications accordingly during the hospital stay 5. DYSLIPIDEMIA -restart Zocor 20 mg nightly 6. PVD - right lower extremity PVD, severe causing rest pain. May require amputation. 7. DIABETES - sliding scale insulin and adjust medications accordingly 8. NON-COMPLIANCE - reiterated the importance of compliance Exam (Progress Note) - Constitutional Vitals: Period Temp Pulse Resp BP Sys/Vallejo Pulse Ox Last 24 Hr 97.1 F-99.4 F 62-83 17-19 110-154/62-71 96-100 Exam: General: Appears well with no apparent distress. Pleasant and cooperative. Appears comfortable. HEENT: Bilateral arcus, poor dentition, normocephalic, atraumatic. Mucous membranes moist. No jaundice noted. Conjunctiva moist and clear, sclerae anicteric Neck: No JVD/HJR, no thyromegaly or lymphadenopathy noted. No carotid bruit appreciated Cardiac: Regular rate and rhythm. No obvious murmur rub or gallop. Left precordial area with ICD noted. Lungs: Clear to auscultation without accessory muscle use to assist the respiratory pattern. Not requiring oxygen Abdomen: Soft, bowel sounds normoactive. Nontender and nondistended. No abdominal bruit or thrill noted. No masses noted. Musculoskeletal: No fluid collection. Decreased range of motion is noted, particularly the right lower extremity. Extremities: No clubbing, cyanosis noted. No edema noted. Upper extremity pulses 2+. Left [id number] amputation. Right lower extremity wrapped. Skin: Midsternal incision with dime size lesion noted. No skin breakdown appreciated. Cannot assess right lower extremity as it is wrapped. Neuro: Awake, alert and cooperative. No essential tremor is appreciated. Result/EKG - Labs CBC & BMP: 07/08/17 05:15 07/08/17 05:15 Lab Results: I have reviewed the past 24 hour labs Labs: Laboratory Results - last 24 hr 07/07/17 07/07/17 07/07/17 13:57 13:57 13:57 WBC 7.8 RBC 3.56 L Hgb 10.7 L Hct 30.8 L MCV 86.5 L MCH 30 MCHC 34.7 RDW 13.4 Plt Count 261 MPV 9.4 L Neut % (Auto) 79.8 H Lymph % (Auto) 10.9 L Hill % (Auto) 8.5 Eos % (Auto) 0.1 Baso % (Auto) 0.3 Neut # (Auto) 6.2 Lymph # (Auto) 0.9 L Hill # (Auto) 0.7 Eos # (Auto) 0.0 Baso # (Auto) 0.0 Immature Gran % 0.4 Nucleated RBC % 0.0 Immature Gran # 0.03 Nucleated RBCs # 0.00 Immature Plt Fraction 0.0 Sodium 140 141 Potassium 4.2 4.2 Chloride 107 108 H Carbon Dioxide 24 23 Anion Gap 13.2 14.2 BUN 41 H 42 H Creatinine 1.70 H 1.70 H GFR Calculation 36 36 BUN/Creatinine Ratio 24.00 H 24.00 H Glucose 74 74 POC Glucose Calculated Osmolality 287.4 290.3 Calcium 8.4 L 8.4 L Magnesium 2.3 Total Bilirubin 0.70 AST 41 H ALT 16 Alkaline Phosphatase 93 Total Protein 6.8 Albumin 2.6 L Globulin 4.2 H Albumin/Globulin Ratio 0.6 L Triglycerides Cholesterol LDL Cholesterol VLDL Cholesterol HDL Cholesterol Heart Disease Risk Ratio 07/07/17 07/07/17 07/08/17 15:57 20:58 05:15 WBC 7.6 RBC 3.48 L Hgb 10.3 L Hct 30.6 L MCV 87.9 MCH 30 MCHC 33.7 RDW 13.6 Plt Count 238 MPV 9.6 Neut % (Auto) 73.7 Lymph % (Auto) 14.9 L Hill % (Auto) 9.9 Eos % (Auto) 0.5 Baso % (Auto) 0.5 Neut # (Auto) 5.6 Lymph # (Auto) 1.1 L Hill # (Auto) 0.8 Eos # (Auto) 0.0 Baso # (Auto) 0.0 Immature Gran % 0.5 Nucleated RBC % 0.0 Immature Gran # 0.04 Nucleated RBCs # 0.00 Immature Plt Fraction 0.0 Sodium Potassium Chloride Carbon Dioxide Anion Gap BUN Creatinine GFR Calculation BUN/Creatinine Ratio Glucose POC Glucose 107 H 100 Calculated Osmolality Calcium Magnesium Total Bilirubin AST ALT Alkaline Phosphatase Total Protein Albumin Globulin Albumin/Globulin Ratio Triglycerides Cholesterol LDL Cholesterol VLDL Cholesterol HDL Cholesterol Heart Disease Risk Ratio 07/08/17 07/08/17 05:15 06:43 WBC RBC Hgb Hct MCV MCH MCHC RDW Plt Count MPV Neut % (Auto) Lymph % (Auto) Hill % (Auto) Eos % (Auto) Baso % (Auto) Neut # (Auto) Lymph # (Auto) Hill # (Auto) Eos # (Auto) Baso # (Auto) Immature Gran % Nucleated RBC % Immature Gran # Nucleated RBCs # Immature Plt Fraction Sodium 143 Potassium 4.5 Chloride 109 H Carbon Dioxide 27 Anion Gap 11.5 BUN 40 H Creatinine 1.80 H GFR Calculation 33 BUN/Creatinine Ratio 22.00 H Glucose 103 POC Glucose 120 H Calculated Osmolality 294.0 Calcium 8.2 L Magnesium 2.4 Total Bilirubin AST ALT Alkaline Phosphatase Total Protein Albumin Globulin Albumin/Globulin Ratio Triglycerides 119 Cholesterol 168 LDL Cholesterol 118.0 VLDL Cholesterol 23.8 HDL Cholesterol 31 L Heart Disease Risk Ratio 5.42 Quality Measures - VTE Contraindication to Pharmacological VTE Prophylaxis: High Risk of Bleeding Contraindication to Mechanical VTE Prophylaxis: Ischemic Vascular Disease IMichael Jennifer, MD, personally performed the services described in this documentation, ascribed by Caterina Medina RN in my presence, and it is both accurate and complete [id number] .
[2017-07-08] MEDS: DOCUSATE SODIUM 100 MG CAPSULE PO SCH (20:21)
[2017-07-08] MEDS: SIMVASTATIN 20 MG TABLET PO SCH (20:21)
[2017-07-08] MEDS: ACETYLCYSTEINE 600 MG CAPSULE PO SCH (20:21)
[2017-07-09] MEDS: SODIUM CHLORIDE 0.9% 1,000 ML IV SCH ×2 (01:44→14:46)
[2017-07-09 05:19] LABS: Basophils % 0.4 % (0.0-0.8); Eosinophils % 0.5 % (0.00-10.9); Hemoglobin 10.2 GM/DL (14.0-18.0); Immature Granulocytes % 0.6 %; Immature Granulocytes Absolute 0.05 #; Lymphocytes # 1.1 10*3/uL (1.4-4.0); Lymphocytes % 13.6 % (21.2-54.2); Mean Corpuscular Hemoglobin 30 PG (27-34); Mean Corpuscular Volume 87.2 FL (87-102); Monocytes # 0.6 10*3/uL (0.11-0.8); Monocytes % 7.8 % (1.7-12.7); Neutrophils # 6.3 10*3/uL (1.4-7.4); Neutrophils % 77.1 % (38.7-73.9); Platelet Count 240 T/CUMM (130-400); Red Blood Count 3.44 MC/CUMM (3.8-5.5); Red Cell Distribution Width 13.3 % (9.3-17.3); White Blood Count 8.2 T/CUMM (4-12)
[2017-07-09 05:33] LABS: Calcium 7.9 MG/DL (8.5-10.1); Magnesium 2.1 MG/DL (1.8-2.4); Osmolality,Calculated 287.5 MOS/KG (273-304); Potassium 4.1 MMOL/L (3.5-5.1)
[2017-07-09] MEDS: FUROSEMIDE 40 MG TABLET PO SCH (08:25)
[2017-07-09] MEDS: PENTOXIFYLLINE 400 MG TABLET PO SCH ×3 (08:25→20:35)
[2017-07-09] MEDS: ASPIRIN CHEW 81 MG TABLET PO SCH (08:25)
[2017-07-09] MEDS: ACETYLCYSTEINE 600 MG CAPSULE PO SCH ×2 (08:25→20:35)
[2017-07-09] MEDS: LISINOPRIL 5 MG TABLET PO SCH (08:25)
[2017-07-09] MEDS: PANTOPRAZOLE 40 MG TABLET PO SCH (08:26)
[2017-07-09] MEDS: DOCUSATE SODIUM 100 MG CAPSULE PO SCH ×2 (08:26→20:35)
[2017-07-09] MEDS: INSULIN REGULAR 100 UNIT/ML SUBCUT SCH ×4 (08:26→20:44)
[2017-07-09] MEDS: MUPIROCIN 2% OINT 22 GM TUBE TOP SCH (08:29)
[2017-07-09] MEDS: ENOXAPARIN 40 MG/0.4 ML SYRINGE SUBCUT SCH (12:11)
--- NOTE | 2017-07-09 12:12 | Nephrology Progress Note ---
Nephrology - PN: Subj Interval history: Mr. Osborne is seen in follow-up of his stage II chronic kidney disease. His creatinine is down to 1.5 from yesterday's 1.8. He and his family understand the plan is for CT angiogram to evaluate the arterial circulation in his right leg to be done on Tuesday. I think continuing his Mucomyst and slow fluids for now is ewing. He has a clear chest and has no trouble breathing. His leg is not causing him a lot of pain today. Exam (PN)-Nephrology - Vital Signs Vital signs: Period Temp Pulse Resp BP Sys/Vallejo Pulse Ox Last 24 Hr 97.4 F-99.4 F 62-87 16-20 127-145/60-69 97-99 - Lab 07/09/17 03:07 07/09/17 03:07 Most recent lab results Calcium 7.9 MG/DL (8.5-10.1) L 07/09/17 03:07 Magnesium 2.1 MG/DL (1.8-2.4) 07/09/17 03:07 Assessment and Plan (1) CKD stage 2 due to type 2 diabetes mellitus Status: Acute Assessment and plan: Long-standing diabetes mellitus Current Visit: Yes (2) Diabetes mellitus Status: Chronic Current Visit: Yes Qualifiers: Diabetes mellitus type: type 2 Diabetes mellitus complication status: with circulatory complication Diabetes mellitus retirement insulin use: without ferry terminal agent use (3) Peripheral arterial disease Problem details: Peripheral arterial disease of the right lower extremity with large ulcerations and significant rest pain. He has an abnormal vascular study from [facility] that warrants at least a CTA and possibly formal arteriogram, but we may be looking at AKA. Status: Chronic Current Visit: Yes
--- NOTE | 2017-07-09 15:27 | Cardiology Progress Note ---
Assessment and Plan (1) Leg pain Status: Acute Current Visit: Yes Qualifiers: Laterality: right Qualified Code(s): M79.604 - Pain in right leg (2) Preoperative cardiovascular examination Status: Acute Current Visit: Yes (3) Dyslipidemia Status: Chronic Current Visit: Yes (4) ICD (implantable cardioverter-defibrillator) in place Status: Chronic Current Visit: Yes (5) Language barrier Status: Chronic Current Visit: Yes (6) Peripheral arterial disease Problem details: Peripheral arterial disease of the right lower extremity with large ulcerations and significant rest pain. He has an abnormal vascular study from [facility] that warrants at least a CTA and possibly formal arteriogram, but we may be looking at AKA. Status: Chronic Current Visit: Yes (7) Coronary artery disease Status: Chronic Current Visit: Yes (8) Diabetes mellitus Status: Chronic Current Visit: Yes Qualifiers: Diabetes mellitus type: type 2 Diabetes mellitus complication status: with circulatory complication Diabetes mellitus senior living insulin use: without senior living use (9) Hx of CABG Status: Chronic Current Visit: Yes (10) Hypertension Status: Chronic Current Visit: Yes (11) Ischemic cardiomyopathy Status: Chronic Current Visit: Yes Cardiology - PN: Subj Interval history: PIPER HELPER: DR. NELSON Patient does have a language barrier though answering many questions himself, family interprets and gives additional information Summary: Mr. Osborne, 82ChM, last seen in cardiology clinic November 24, 2015. Risk factors include: age, known coronary artery disease S/P CABG December 12, 1995 (GALVEZ -LAD, SVG - Cx, SVG - OM), hypertension, dyslipidemia, diabetes, PVD , sedentary lifestyle, family history premature coronary artery disease, noncompliance. History of ischemic cardiomyopathy S/P Medtronic Bi-V ICD implantation February 19, 2014. Echocardiogram June 01, 2015: EF 15%, global hypokinesis with grade 3 diastolic dysfunction, mild concentric LVH, RVSP 44 mmHg + RAP. Last heart catheterization: July 19, 2013 with the following impression noted: PCI to the left main coronary artery with DENA, PCI to the distal RCA with DENA, PCI with DENA to the proximal portion distal RCA stent overlapping the distal stent. Patient was admitted July 07, [address] Fernandez for further workup of the right lower extremity ulcerations and significant wrist pain. He has an abnormal vascular study from [facility] which warrants a CTA and possibly formal arteriogram. If there are no interventional procedures from which he could benefit he may require amputation. Apparently, he is right lower extremity pain has worsened over the past 3 weeks and for this reason he sought medical attention. Cardiology was consulted for preoperative evaluation and management of his cardiac conditions. Patient is sedentary, sitting in a wheelchair the majority of the day. 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 He has not walked in many years. However, patient and family members deny complaints of chest pain, heaviness, tightness, shortness of breath, presyncope or syncope. He has not followed up with Dr. Nelson since November 2015. He does not recall having his ICD interrogated recently and I find no records to support recent interrogation. At the time of my interview and examination, there are no labs or vital signs recorded. In the past, he has had chronic kidney disease. July 07, 2017: Today I will start with echocardiogram, EKG. I will also ask that his Medtronic device be interrogated and will try to get him back on track as far as having this routinely evaluated/interrogated. We will adjust medications accordingly during the hospital stay for better blood pressure control and control of his lipids. Wants some of the previously stated information has returned, will better address his perioperative risk category. I will further address with Dr. Bia Rodriguez and await additional recommendations. July 08, 2017: Mr. Osborne is seen resting in bed. He denies any chest pain or shortness of breath. He states he had a pain pill earlier for discomfort to his right lower extremity and he says this has eased up. His blood pressures have been elevated, his home medications have not been restarted. Will restart lisinopril 5 mg daily. Pacemaker was interrogated by [employer] rep. Reportedly checked fine with no episodes of atrial fibrillation. Was noted if he requires surgery, magnet will need to be placed to pacemaker. July 09, 2017: He has no complaints today he denies right leg pain. He denies chest pain, shortness of breath. He has IV fluids running at 75 cc an hour, currently his lung sounds are clear. ASSESSMENT/PLAN: 1. PRE-OPERATIVE RISK ASSESSMENT - He has CM and CAD, but does not appear to be in CHF or experiencing an ACS. He will be moderate risk of perioperative cardiovascular complications with planned surgery. With urgent surgery, these risks are not prohbitive. Elective surgery would require further work-up. 2. KNOWN CAD S/P CABG - see above information regarding CABG details and last cardiac catheterization. 3. ICM (EF 30%) WITH BI-V ICD -echocardiogram with ejection fraction 30%. Not in CHF. We need to monitor his fluid status as he is receiving IV fluids. 4. HYPERTENSION - will adjust medications accordingly during the hospital stay 5. DYSLIPIDEMIA -restart Zocor 20 mg nightly 6. PVD - right lower extremity PVD, severe causing rest pain. May require amputation. 7. DIABETES - sliding scale insulin and adjust medications accordingly 8. NON-COMPLIANCE - reiterated the importance of compliance Exam (Progress Note) - Constitutional Vitals: Period Temp Pulse Resp BP Sys/Vallejo Pulse Ox Last 24 Hr 97.1 F-99.4 F 57-87 16-20 127-145/59-69 97-99 Exam: General: Appears well with no apparent distress. Pleasant and cooperative. Appears comfortable. HEENT: Bilateral arcus, poor dentition, normocephalic, atraumatic. Mucous membranes moist. No jaundice noted. Conjunctiva moist and clear, sclerae anicteric Neck: No JVD/HJR, no thyromegaly or lymphadenopathy noted. No carotid bruit appreciated Cardiac: Regular rate and rhythm with a soft 2/6 holosystolic murmur. Left precordial area with ICD noted. Lungs: Clear to auscultation without accessory muscle use to assist the respiratory pattern. Not requiring oxygen Abdomen: Soft, bowel sounds normoactive. Nontender and nondistended. No abdominal bruit or thrill noted. No masses noted. Musculoskeletal: No fluid collection. Decreased range of motion is noted, particularly the right lower extremity. Extremities: No clubbing, cyanosis noted. No edema noted. Upper extremity pulses 2+. Left [id number] amputation. Right lower extremity wrapped. Skin: Midsternal incision with dime size lesion noted. No skin breakdown appreciated. Cannot assess right lower extremity as it is wrapped. Neuro: Awake, alert and cooperative. No essential tremor is appreciated. Result/EKG - Labs CBC & BMP: 07/09/17 03:07 07/09/17 03:07 Lab Results: I have reviewed the past 24 hour labs Labs: Laboratory Results - last 24 hr 07/08/17 07/08/17 07/09/17 16:45 19:55 03:07 WBC 8.2 RBC 3.44 L Hgb 10.2 L Hct 30.0 L MCV 87.2 MCH 30 MCHC 34.0 RDW 13.3 Plt Count 240 MPV 10.0 Neut % (Auto) 77.1 H Lymph % (Auto) 13.6 L Deuel % (Auto) 7.8 Eos % (Auto) 0.5 Baso % (Auto) 0.4 Neut # (Auto) 6.3 Lymph # (Auto) 1.1 L Deuel # (Auto) 0.6 Eos # (Auto) 0.0 Baso # (Auto) 0.0 Immature Gran % 0.6 Nucleated RBC % 0.0 Immature Gran # 0.05 Nucleated RBCs # 0.00 Immature Plt Fraction 0.0 Sodium Potassium Chloride Carbon Dioxide Anion Gap BUN Creatinine GFR Calculation BUN/Creatinine Ratio Glucose POC Glucose 210 H 189 H Calculated Osmolality Calcium Magnesium 07/09/17 07/09/17 07/09/17 03:07 07:04 12:03 WBC RBC Hgb Hct MCV MCH MCHC RDW Plt Count MPV Neut % (Auto) Lymph % (Auto) Deuel % (Auto) Eos % (Auto) Baso % (Auto) Neut # (Auto) Lymph # (Auto) Deuel # (Auto) Eos # (Auto) Baso # (Auto) Immature Gran % Nucleated RBC % Immature Gran # Nucleated RBCs # Immature Plt Fraction Sodium 139 Potassium 4.1 Chloride 105 Carbon Dioxide 24 Anion Gap 14.1 BUN 34 H Creatinine 1.50 H GFR Calculation 42 BUN/Creatinine Ratio 22.00 H Glucose 151 H POC Glucose 162 H 174 H Calculated Osmolality 287.5 Calcium 7.9 L Magnesium 2.1 Quality Measures - VTE Contraindication to Pharmacological VTE Prophylaxis: High Risk of Bleeding Contraindication to Mechanical VTE Prophylaxis: Ischemic Vascular Disease
--- NOTE | 2017-07-09 18:29 | General Surgery Progress Note ---
Assessment and Plan (1) Leg pain Status: Acute Assessment and plan: The patient has ischemic ulcers of his right lower extremity. Plan is for wound care and CT angiogram right lower extremity on Tuesday if creatinine is stable Current Visit: Yes Qualifiers: Laterality: right Qualified Code(s): M79.604 - Pain in right leg Subjective Patient reports: Present: no new complaints, still having pain, afebrile Exam - Constitutional Vitals: Period Temp Pulse Resp BP Sys/Vallejo Pulse Ox Last 24 Hr 97.1 F-99.4 F 57-87 16-20 127-145/59-69 98-100 General appearance: normal weight, no acute distress - Head Head exam: Present: normal inspection, normocephalic - Eye Eye exam: Present: EOMI. Absent: scleral icterus Pupils: Present: YAYO - ENT ENT exam: Present: normal exam Mouth exam: Present: normal external inspection, normal voice - Neck Neck exam: Present: normal inspection, trachea midline - Respiratory Respiratory exam: Present: clear to auscultation bilaterally. Absent: accessory muscle use, chest wall tenderness - Cardiovascular Cardiovascular exam: Present: RRR. Absent: systolic murmur, tachycardia - GI/Abdominal GI/Abdominal exam: Present: soft. Absent: tenderness, rebound - Extremities Exam Extremities exam: Present: other (Prior left leg amputation. Right lower extremity with ischemic appearing ulcers but no erythema or infectious signs) - Back Exam Back exam: Present: normal inspection - Neurological Exam Neurological exam: Present: alert, oriented X3 Speech: Present: normal - Skin Skin exam: Present: normal color, warm Results - Labs CBC & BMP: 07/09/17 03:07 07/09/17 03:07 Quality Measures - VTE Contraindication to Pharmacological VTE Prophylaxis: High Risk of Bleeding Contraindication to Mechanical VTE Prophylaxis: Ischemic Vascular Disease
[2017-07-09] MEDS: SIMVASTATIN 20 MG TABLET PO SCH (20:35)
--- NOTE | 2017-07-09 20:41 | Hospitalist Progress Note ---
Hospitalist: Subjective Interval history: 82-year-old with history of multiple medical problems. Patient reports that his leg pain is little better today Exam - Constitutional Vitals: Period Temp Pulse Resp BP Sys/Vallejo Pulse Ox Last 24 Hr 97.1 F-98.1 F 57-85 16-20 132-151/59-73 98-100 Exam: General: No Acute Distress HEENT: Normocephalic, atraumatic, Extra ocular movements intact Neck: Supple, No JVD Chest: Clear to auscultation B/L CV: S1 + S2 audible with pansystolic murmur 2/6 LSE Abd: soft, NT, Non-distended, BS + Ext: Left AKA Skin: No purpura, bruising or rash Rheumatologic: No Joint deformities Neurologic: Strength 5/5 all extremities, no gross sensory deficits Results - Labs CBC & BMP: 07/09/17 03:07 07/09/17 03:07 - Impressions Assessment and Plan Peripheral arterial disease Assessment and plan: The patient has ischemic ulcers of his right lower extremity. Continue wound care. 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 He is on KITTY inhibitor, started on Coreg 07/09 DVT prophylaxis: Lovenox Quality Measures - VTE Contraindication to Pharmacological VTE Prophylaxis: High Risk of Bleeding Contraindication to Mechanical VTE Prophylaxis: Ischemic Vascular Disease
[2017-07-09] MEDS: CARVEDILOL 3.125 MG TABLET PO SCH (21:50)
[2017-07-10 04:52] LABS: Basophils % 0.3 % (0.0-0.8); Eosinophils # 0.1 10*3/uL (0.0-0.87); Eosinophils % 0.7 % (0.00-10.9); Hematocrit 32.1 VOL% (42.0-52.0); Immature Granulocytes % 0.3 %; Immature Granulocytes Absolute 0.02 #; Lymphocytes # 1.3 10*3/uL (1.4-4.0); Lymphocytes % 17.3 % (21.2-54.2); Mean Corpuscular HGB Conc 34.3 GM/DL (32-36); Mean Corpuscular Hemoglobin 30 PG (27-34); Mean Corpuscular Volume 86.3 FL (87-102); Mean Platelet Volume 10.1 FL (9.6-12.0); Monocytes # 0.6 10*3/uL (0.11-0.8); Monocytes % 7.4 % (1.7-12.7); Neutrophils # 5.5 10*3/uL (1.4-7.4); Platelet Count 267 T/CUMM (130-400); Red Blood Count 3.72 MC/CUMM (3.8-5.5); Red Cell Distribution Width 13.4 % (9.3-17.3); White Blood Count 7.4 T/CUMM (4-12)
[2017-07-10 05:22] LABS: Calcium 8.1 MG/DL (8.5-10.1); Magnesium 1.9 MG/DL (1.8-2.4); Osmolality,Calculated 287.3 MOS/KG (273-304); Potassium 4.1 MMOL/L (3.5-5.1)
[2017-07-10] MEDS: LISINOPRIL 5 MG TABLET PO SCH (08:30)
[2017-07-10] MEDS: PENTOXIFYLLINE 400 MG TABLET PO SCH ×3 (08:30→21:29)
[2017-07-10] MEDS: FUROSEMIDE 40 MG TABLET PO SCH (08:30)
[2017-07-10] MEDS: DOCUSATE SODIUM 100 MG CAPSULE PO SCH ×2 (08:30→21:29)
[2017-07-10] MEDS: ACETYLCYSTEINE 600 MG CAPSULE PO SCH ×2 (08:30→21:28)
[2017-07-10] MEDS: INSULIN REGULAR 100 UNIT/ML SUBCUT SCH ×4 (08:30→21:29)
[2017-07-10] MEDS: ASPIRIN CHEW 81 MG TABLET PO SCH (08:30)
[2017-07-10] MEDS: PANTOPRAZOLE 40 MG TABLET PO SCH (08:30)
[2017-07-10] MEDS: CARVEDILOL 3.125 MG TABLET PO SCH ×2 (08:31→21:28)
--- NOTE | 2017-07-10 11:29 | Nephrology Progress Note ---
Nephrology - PN: Subj Interval history: Mr. Osborne is seen in follow-up of his chronic renal impairment and planned CT angiogram. He will have a CT angiogram tomorrow to evaluate circulation to his right leg. His creatinine is down further to 1.4 and he remains on Mucomyst. Will hold his Lasix in the morning and resume at the day after his contrast. We should be able to stop the Mucomyst the day after contrast as well. His chest is clear and he is eating well he continues to receive IV fluids. Exam (PN)-Nephrology - Vital Signs Vital signs: Period Temp Pulse Resp BP Sys/Vallejo Pulse Ox Last 24 Hr 96.9 F-98.9 F 57-85 16-20 134-158/57-73 97-100 - Lab 07/10/17 03:20 07/10/17 03:20 Most recent lab results Calcium 8.1 MG/DL (8.5-10.1) L 07/10/17 03:20 Magnesium 1.9 MG/DL (1.8-2.4) 07/10/17 03:20 Assessment and Plan (1) CKD stage 2 due to type 2 diabetes mellitus Status: Acute Assessment and plan: Long-standing diabetes mellitus Current Visit: Yes (2) Diabetes mellitus Status: Chronic Current Visit: Yes Qualifiers: Diabetes mellitus type: type 2 Diabetes mellitus complication status: with circulatory complication Diabetes mellitus long term care administrator insulin use: without long term care administrator use (3) Peripheral arterial disease Problem details: Peripheral arterial disease of the right lower extremity with large ulcerations and significant rest pain. He has an abnormal vascular study from [facility] that warrants at least a CTA and possibly formal arteriogram, but we may be looking at AKA. Status: Chronic Current Visit: Yes
[2017-07-10] MEDS: ENOXAPARIN 40 MG/0.4 ML SYRINGE SUBCUT SCH (12:58)
--- NOTE | 2017-07-10 14:02 | Hospitalist Progress Note ---
Hospitalist: Subjective Interval history: 82-year-old with history of multiple medical problems. Still has some leg pain Exam - Constitutional Vitals: Period Temp Pulse Resp BP Sys/Vallejo Pulse Ox Last 24 Hr 96.9 F-98.9 F 62-85 16-20 128-158/57-73 97-100 Exam: General: No Acute Distress HEENT: Normocephalic, atraumatic, Extra ocular movements intact Neck: Supple, No JVD Chest: Clear to auscultation B/L CV: S1 + S2 audible with pansystolic murmur 2/6 LSE Abd: soft, NT, Non-distended, BS + Ext: Left AKA Skin: No purpura, bruising or rash Rheumatologic: No Joint deformities Neurologic: Strength 5/5 all extremities, no gross sensory deficits Results - Labs CBC & BMP: 07/10/17 03:20 07/10/17 03:20 - Impressions Assessment and Plan Peripheral arterial disease Assessment and plan: The patient has ischemic ulcers of his right lower extremity. Continue wound care. 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 He is on KITTY inhibitor & Coreg DVT prophylaxis: Lovenox Quality Measures - VTE Contraindication to Pharmacological VTE Prophylaxis: High Risk of Bleeding Contraindication to Mechanical VTE Prophylaxis: Ischemic Vascular Disease
--- NOTE | 2017-07-10 14:09 | General Surgery Progress Note ---
Assessment and Plan (1) Leg pain Status: Acute Assessment and plan: The patient has positive cultures of his wound which could just be colonization because he has been admitted for these wounds and he has vascular insufficiency of the presumed I will place him on Levaquin which is a good agent for sensitivity on both of the bacteria that were cultured. Dr. Fernandez will be back tomorrow to decide ultimately the plan for antibiotics. He is scheduled for CT angiogram tomorrow and his creatinine is improving down to 1.4 today. Current Visit: Yes Qualifiers: Laterality: right Qualified Code(s): M79.604 - Pain in right leg Subjective Patient reports: Present: no new complaints, still having pain Exam - Constitutional Vitals: Period Temp Pulse Resp BP Sys/Vallejo Pulse Ox Last 24 Hr 96.9 F-98.9 F 62-85 16-20 128-158/57-73 97-100 General appearance: normal weight, no acute distress - Head Head exam: Present: normal inspection, normocephalic - Eye Eye exam: Present: EOMI. Absent: scleral icterus Pupils: Present: YAYO - ENT ENT exam: Present: normal exam Mouth exam: Present: normal external inspection, normal voice - Neck Neck exam: Present: normal inspection, trachea midline - Respiratory Respiratory exam: Present: clear to auscultation bilaterally. Absent: accessory muscle use, chest wall tenderness - Cardiovascular Cardiovascular exam: Present: RRR. Absent: systolic murmur, tachycardia - GI/Abdominal GI/Abdominal exam: Present: normal bowel sounds, soft. Absent: tenderness, rebound - Extremities Exam Extremities exam: Present: other (Ulceration of right lower leg is unchanged. There is no significant erythema.) - Back Exam Back exam: Present: normal inspection - Neurological Exam Neurological exam: Present: alert Speech: Present: normal - Skin Skin exam: Present: normal color, warm Results - Labs CBC & BMP: 07/10/17 03:20 07/10/17 03:20 Quality Measures - VTE Contraindication to Pharmacological VTE Prophylaxis: High Risk of Bleeding Contraindication to Mechanical VTE Prophylaxis: Ischemic Vascular Disease
[2017-07-10] MEDS: SODIUM CHLORIDE 0.9% 1,000 ML IV SCH ×2 (15:47→19:45)
[2017-07-10] MEDS: LEVOFLOXACIN INJ 500 MG in PREMIX 1 EACH IV SCH (15:47)
--- NOTE | 2017-07-10 16:30 | Cardiology Progress Note ---
Assessment and Plan (1) Leg pain Status: Acute Current Visit: Yes Qualifiers: Laterality: right Qualified Code(s): M79.604 - Pain in right leg (2) Preoperative cardiovascular examination Status: Resolved Current Visit: Yes (3) Dyslipidemia Status: Chronic Current Visit: Yes (4) ICD (implantable cardioverter-defibrillator) in place Status: Chronic Current Visit: Yes (5) Language barrier Status: Chronic Current Visit: Yes (6) Peripheral arterial disease Problem details: Peripheral arterial disease of the right lower extremity with large ulcerations and significant rest pain. He has an abnormal vascular study from [facility] that warrants at least a CTA and possibly formal arteriogram, but we may be looking at AKA. 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 NELSON Summary: Mr. Osborne, 82ChM, last seen in cardiology clinic November 24, 2015. Risk factors include: age, known coronary artery disease S/P CABG December 12, 1995 (GALVEZ -LAD, SVG - Cx, SVG - OM), hypertension, dyslipidemia, diabetes, PVD , sedentary lifestyle, family history premature coronary artery disease, noncompliance. History of ischemic cardiomyopathy S/P Medtronic Bi-V ICD implantation February 19, 2014. Echocardiogram June 01, 2015: EF 15%, global hypokinesis with grade 3 diastolic dysfunction, mild concentric LVH, RVSP 44 mmHg + RAP. Last heart catheterization: July 19, 2013 with the following impression noted: PCI to the left main coronary artery with DENA, PCI to the distal RCA with DEAN, PCI with DENA to the proximal portion distal RCA stent overlapping the distal stent. Patient was admitted July 07, [address] Fernandez for further workup of the right lower extremity ulcerations and significant wrist pain. He has an abnormal vascular study from which warrants a CTA and possibly formal arteriogram. He has not followed up with Dr. Nelson since November 2015. He does not recall having his ICD interrogated recently and I find no records to support recent interrogation. July 07, 2017: Today I will start with echocardiogram, EKG. I will also ask that his Medtronic device be interrogated and will try to get him back on track as far as having this routinely evaluated/interrogated. We will adjust medications accordingly during the hospital stay for better blood pressure control and control of his lipids. Wants some of the previously stated information has returned, will better address his perioperative risk category. I will further address with Dr. Bia Rodriguez and await additional recommendations. July 08, 2017: Mr. Osborne is seen resting in bed. He denies any chest pain or shortness of breath. He states he had a pain pill earlier for discomfort to his right lower extremity and he says this has eased up. His blood pressures have been elevated, his home medications have not been restarted. Will restart lisinopril 5 mg daily. Pacemaker was interrogated by Medtr[employer] rep. Reportedly checked fine with no episodes of atrial fibrillation. Was noted if he requires surgery, magnet will need to be placed to pacemaker. July 09, 2017: He has no complaints today he denies right leg pain. He denies chest pain, shortness of breath. He has IV fluids running at 75 cc an hour, currently his lung sounds are clear. July 10, 2017: He has no complaints today he denies right leg pain. He denies chest pain, shortness of breath. He has IV fluids running at 75 cc an hour, currently his lung sounds are still clear. ASSESSMENT/PLAN: 1. PRE-OPERATIVE RISK ASSESSMENT - He has CM and CAD, but does not appear to be in CHF or experiencing an ACS. He will be moderate risk of perioperative cardiovascular complications with planned surgery. With urgent surgery, these risks are not prohbitive. Elective surgery would require further work-up. 2. KNOWN CAD S/P CABG - see above information regarding CABG details and last cardiac catheterization. 3. ICM (EF 30%) WITH BI-V ICD -echocardiogram with ejection fraction 30%. Not in CHF. We need to monitor his fluid status as he is receiving IV fluids. 4. HYPERTENSION - will adjust medications accordingly during the hospital stay 5. DYSLIPIDEMIA -chronic. 6. PVD - right lower extremity PVD, severe causing rest pain. May require amputation. 7. DIABETES - sliding scale insulin and adjust medications accordingly 8. NON-COMPLIANCE - reiterated the importance of compliance Exam (Progress Note) - Constitutional Vitals: Period Temp Pulse Resp BP Sys/Vallejo Pulse Ox Last 24 Hr 96.9 F-98.9 F 73-85 18-20 128-158/57-73 97-100 Exam: General: Appears well with no apparent distress. Pleasant and cooperative. Appears comfortable. HEENT: Bilateral arcus, poor dentition, normocephalic, atraumatic. Mucous membranes moist. No jaundice noted. Conjunctiva moist and clear, sclerae anicteric Neck: No JVD/HJR, no thyromegaly or lymphadenopathy noted. No carotid bruit appreciated Cardiac: Regular rate and rhythm. Left precordial area with ICD noted. Lungs: Clear to auscultation without accessory muscle use to assist the respiratory pattern. Not requiring oxygen Abdomen: Soft, bowel sounds normoactive. Nontender and nondistended. No abdominal bruit or thrill noted. No masses noted. Musculoskeletal: No fluid collection. Decreased range of motion is noted, particularly the right lower extremity. Extremities: No clubbing, cyanosis noted. No edema noted. Upper extremity pulses 2+. Left [id number] amputation. Right lower extremity wrapped. Skin: Midsternal incision with dime size lesion noted. No skin breakdown appreciated. Cannot assess right lower extremity as it is wrapped. Neuro: Awake, alert and cooperative. No essential tremor is appreciated. Result/EKG - Labs CBC & BMP: 07/10/17 03:20 07/10/17 03:20 Lab Results: I have reviewed the past 24 hour labs Labs: Laboratory Results - last 24 hr 07/09/17 07/09/17 07/10/17 16:43 19:30 03:20 WBC 7.4 RBC 3.72 L Hgb 11.0 L Hct 32.1 L MCV 86.3 L MCH 30 MCHC 34.3 RDW 13.4 Plt Count 267 MPV 10.1 Neut % (Auto) 74.0 H Lymph % (Auto) 17.3 L [place] % (Auto) 7.4 Eos % (Auto) 0.7 Baso % (Auto) 0.3 Neut # (Auto) 5.5 Lymph # (Auto) 1.3 L [place] # (Auto) 0.6 Eos # (Auto) 0.1 Baso # (Auto) 0.0 Immature Gran % 0.3 Nucleated RBC % 0.0 Immature Gran # 0.02 Nucleated RBCs # 0.00 Immature Plt Fraction 0.0 Sodium Potassium Chloride Carbon Dioxide Anion Gap BUN Creatinine GFR Calculation BUN/Creatinine Ratio Glucose POC Glucose 141 H 125 H Calculated Osmolality Calcium Magnesium 07/10/17 07/10/17 07/10/17 03:20 07:13 12:05 WBC RBC Hgb Hct MCV MCH MCHC RDW Plt Count MPV Neut % (Auto) Lymph % (Auto) [place] % (Auto) Eos % (Auto) Baso % (Auto) Neut # (Auto) Lymph # (Auto) [place] # (Auto) Eos # (Auto) Baso # (Auto) Immature Gran % Nucleated RBC % Immature Gran # Nucleated RBCs # Immature Plt Fraction Sodium 141 Potassium 4.1 Chloride 108 H Carbon Dioxide 23 Anion Gap 14.1 BUN 29 H Creatinine 1.40 H GFR Calculation 45 BUN/Creatinine Ratio 20.00 Glucose 115 H POC Glucose 156 H 269 H Calculated Osmolality 287.3 Calcium 8.1 L Magnesium 1.9 07/10/17 15:44 WBC RBC Hgb Hct MCV MCH MCHC RDW Plt Count MPV Neut % (Auto) Lymph % (Auto) [place] % (Auto) Eos % (Auto) Baso % (Auto) Neut # (Auto) Lymph # (Auto) [place] # (Auto) Eos # (Auto) Baso # (Auto) Immature Gran % Nucleated RBC % Immature Gran # Nucleated RBCs # Immature Plt Fraction Sodium Potassium Chloride Carbon Dioxide Anion Gap BUN Creatinine GFR Calculation BUN/Creatinine Ratio Glucose POC Glucose 166 H Calculated Osmolality Calcium Magnesium Quality Measures - VTE Contraindication to Pharmacological VTE Prophylaxis: High Risk of Bleeding Contraindication to Mechanical VTE Prophylaxis: Ischemic Vascular Disease
[2017-07-10] MEDS: MUPIROCIN 2% OINT 22 GM TUBE TOP SCH (18:02)
[2017-07-10] MEDS: SIMVASTATIN 20 MG TABLET PO SCH (21:28)
[2017-07-11] MEDS: SODIUM CHLORIDE 0.9% 1,000 ML IV SCH ×2 (05:18→17:30)
[2017-07-11 05:53] LABS: Basophils % 0.3 % (0.0-0.8); Eosinophils # 0.1 10*3/uL (0.0-0.87); Eosinophils % 1.2 % (0.00-10.9); Hematocrit 28.1 VOL% (42.0-52.0); Hemoglobin 9.6 GM/DL (14.0-18.0); Immature Granulocytes % 0.6 %; Immature Granulocytes Absolute 0.04 #; Lymphocytes # 1.1 10*3/uL (1.4-4.0); Lymphocytes % 16.5 % (21.2-54.2); Mean Corpuscular HGB Conc 34.2 GM/DL (32-36); Mean Corpuscular Hemoglobin 30 PG (27-34); Mean Platelet Volume 9.8 FL (9.6-12.0); Monocytes # 0.5 10*3/uL (0.11-0.8); Monocytes % 8.1 % (1.7-12.7); Neutrophils # 4.7 10*3/uL (1.4-7.4); Neutrophils % 73.3 % (38.7-73.9); Platelet Count 254 T/CUMM (130-400); Red Blood Count 3.23 MC/CUMM (3.8-5.5); Red Cell Distribution Width 13.5 % (9.3-17.3); White Blood Count 6.4 T/CUMM (4-12)
[2017-07-11 06:29] LABS: Magnesium 1.7 MG/DL (1.8-2.4); Osmolality,Calculated 286.3 MOS/KG (273-304); Potassium 4.3 MMOL/L (3.5-5.1)
--- NOTE | 2017-07-11 07:52 | Cardiology Progress Note ---
Cardiology - PN: Subj Interval history: Cardiology note 82-year-old man with right leg ulcerations and leg pain. For abdominal aortogram and runoff study today Blood pressure 130/70 O2 sat 98% on 2 L Regular rhythm soft systolic murmur Decreased breath sounds few rhonchi in the right base Abdomen nontender Femoral pulses 2+ with bilateral bruits Right leg wrapped Lab data White count 6.4 hemoglobin 9.6 hematocrit 28.1 Glucose 151 magnesium 1.7 Sodium 141 potassium 4.3 chloride 108 CO2 24 BUN 20 creatinine 1.50 Impression status post ICD Ischemic cardiomyopathy Status post three-vessel CABG November 1995 GALVEZ graft to LAD, vein graft to OM branch and vein graft to circumflex Status post left main stent and distal RCA stent July 19, 2013 PVD Hypertension Large leg ulcers with rest pain Plan CT angiogram today Watch for heart failure Exam (Progress Note) - Constitutional Vitals: Period Temp Pulse Resp BP Sys/Val[place] Pulse Ox Last 24 Hr 97.0 F-98.0 F 74-83 18-18 105-154/51-83 96-100 Result/EKG - Labs CBC & BMP: 07/11/17 04:45 07/11/17 04:45 Labs: Laboratory Results - last 24 hr 07/10/17 07/10/17 07/10/17 12:05 15:44 19:42 WBC RBC Hgb Hct MCV MCH MCHC RDW Plt Count MPV Neut % (Auto) Lymph % (Auto) [place] % (Auto) Eos % (Auto) Baso % (Auto) Neut # (Auto) Lymph # (Auto) [place] # (Auto) Eos # (Auto) Baso # (Auto) Immature Gran % Nucleated RBC % Immature Gran # Nucleated RBCs # Immature Plt Fraction Sodium Potassium Chloride Carbon Dioxide Anion Gap BUN Creatinine GFR Calculation BUN/Creatinine Ratio Glucose POC Glucose 269 H 166 H 208 H Calculated Osmolality Calcium Magnesium 07/11/17 07/11/17 07/11/17 04:45 04:45 07:00 WBC 6.4 RBC 3.23 L Hgb 9.6 L Hct 28.1 L MCV 87.0 MCH 30 MCHC 34.2 RDW 13.5 Plt Count 254 MPV 9.8 Neut % (Auto) 73.3 Lymph % (Auto) 16.5 L [place] % (Auto) 8.1 Eos % (Auto) 1.2 Baso % (Auto) 0.3 Neut # (Auto) 4.7 Lymph # (Auto) 1.1 L [place] # (Auto) 0.5 Eos # (Auto) 0.1 Baso # (Auto) 0.0 Immature Gran % 0.6 Nucleated RBC % 0.0 Immature Gran # 0.04 Nucleated RBCs # 0.00 Immature Plt Fraction 0.0 Sodium 141 Potassium 4.3 Chloride 108 H Carbon Dioxide 24 Anion Gap 13.3 BUN 28 H Creatinine 1.50 H GFR Calculation 42 BUN/Creatinine Ratio 18.00 Glucose 104 POC Glucose 151 H Calculated Osmolality 286.3 Calcium 8.0 L Magnesium 1.7 L Quality Measures - VTE Contraindication to Pharmacological VTE Prophylaxis: High Risk of Bleeding Contraindication to Mechanical VTE Prophylaxis: Ischemic Vascular Disease
--- NOTE | 2017-07-11 08:03 | General Surgery Progress Note ---
Assessment and Plan - Time spent with patient Time spent with patient: Less than 30 minutes (1) Peripheral arterial disease Problem details: Peripheral arterial disease of the right lower extremity with large ulcerations and significant rest pain. He has an abnormal vascular study from [facility] that warrants at least a CTA and possibly formal arteriogram, but we may be looking at AKA. Status: Chronic Assessment and plan: 07/11/2017. 0800 hrs. Patient is stable his dressings are intact at this time has a moderate amount of pain and discomfort. His labs look better with this creatinine 1.5 and his hematocrit of 28. He is scheduled for CTA today and will see what our status he is and I would tell us what our best options are to treat this process. Current Visit: Yes Subjective Patient reports: Present: pain is less, afebrile Exam - Constitutional Vitals: Period Temp Pulse Resp BP Sys/Vallejo Pulse Ox Last 24 Hr 97.0 F-98.0 F 74-83 18-18 105-154/51-83 96-100 General appearance: mild distress - Head Head exam: Present: normal inspection - ENT ENT exam: Present: normal exam - Neck Neck exam: Present: normal inspection - Respiratory Respiratory exam: Present: rales - Cardiovascular Cardiovascular exam: Present: RRR - GI/Abdominal GI/Abdominal exam: Present: hypoactive bowel sounds, soft - Extremities Exam Extremities exam: Present: other (Dressings in place right lower extreme) - Back Exam Back exam: Present: normal inspection - Neurological Exam Neurological exam: Present: alert, oriented X3, CN II-XII intact - Skin Skin exam: Present: normal color, warm, dry Results - Labs CBC & BMP: 07/11/17 04:45 07/11/17 04:45 Lab Results: I have reviewed the past 24 hour labs Quality Measures - VTE Contraindication to Pharmacological VTE Prophylaxis: High Risk of Bleeding Contraindication to Mechanical VTE Prophylaxis: Ischemic Vascular Disease
[2017-07-11] MEDS: INSULIN REGULAR 100 UNIT/ML SUBCUT SCH ×4 (08:27→20:51)
[2017-07-11] MEDS: LISINOPRIL 5 MG TABLET PO SCH (09:45)
[2017-07-11] MEDS: CARVEDILOL 3.125 MG TABLET PO SCH ×2 (09:46→20:50)
--- NOTE | 2017-07-11 10:58 | Nephrology Progress Note ---
Nephrology - PN: Subj Interval history: Mr. Osborne is seen in follow-up of his stage II chronic renal failure. He is to undergo CT angiogram of his right leg today. His creatinine stable at 1.5 and he is "as good as he can be" for this contrast. Chest is clear he is alert. Will continue to follow thank Exam (PN)-Nephrology - Vital Signs Vital signs: Period Temp Pulse Resp BP Sys/Vallejo Pulse Ox Last 24 Hr 97.0 F-98.0 F 74-83 18-18 105-154/51-83 96-100 - Lab 07/11/17 04:45 07/11/17 04:45 Most recent lab results Calcium 8.0 MG/DL (8.5-10.1) L 07/11/17 04:45 Magnesium 1.7 MG/DL (1.8-2.4) L 07/11/17 04:45 Assessment and Plan (1) CKD stage 2 due to type 2 diabetes mellitus Status: Acute Assessment and plan: Long-standing diabetes mellitus Current Visit: Yes (2) Diabetes mellitus Status: Chronic Current Visit: Yes Qualifiers: Diabetes mellitus type: type 2 Diabetes mellitus complication status: with circulatory complication 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 He has an abnormal vascular study from [facility] that warrants at least a CTA and possibly formal arteriogram, but we may be looking at AKA. Status: Chronic Current Visit: Yes
[2017-07-11] MEDS: PENTOXIFYLLINE 400 MG TABLET PO SCH ×3 (13:29→20:48)
[2017-07-11] MEDS: PANTOPRAZOLE 40 MG TABLET PO SCH (13:29)
[2017-07-11] MEDS: ASPIRIN CHEW 81 MG TABLET PO SCH (13:29)
[2017-07-11] MEDS: ACETYLCYSTEINE 600 MG CAPSULE PO SCH ×2 (13:29→20:48)
[2017-07-11] MEDS: DOCUSATE SODIUM 100 MG CAPSULE PO SCH ×2 (13:29→20:50)
[2017-07-11] MEDS: ENOXAPARIN 40 MG/0.4 ML SYRINGE SUBCUT SCH (13:30)
[2017-07-11] MEDS: LEVOFLOXACIN INJ 500 MG in PREMIX 1 EACH IV SCH (14:10)
--- NOTE | 2017-07-11 16:14 | Hospitalist Progress Note ---
Hospitalist: Subjective Interval history: 82-year-old with history of multiple medical problems. Still has some leg pain, going for CTA today. Exam - Constitutional Vitals: Period Temp Pulse Resp BP Sys/[place] Pulse Ox Last 24 Hr 97.3 F-98.0 F 79-85 18-18 105-154/51-83 96-100 Exam: General: No Acute Distress HEENT: Normocephalic, atraumatic, Extra ocular movements intact Neck: Supple, No JVD Chest: Clear to auscultation B/L CV: S1 + S2 audible with pansystolic murmur 2/6 LSE Abd: soft, NT, Non-distended, BS + Ext: Left AKA Skin: No purpura, bruising or rash Rheumatologic: No Joint deformities Neurologic: Strength 5/5 all extremities, no gross sensory deficits Results - Labs CBC & BMP: 07/11/17 04:45 07/11/17 04:45 - Impressions Assessment and Plan Peripheral arterial disease Assessment and plan: The patient has ischemic ulcers of his right lower extremity. Continue wound care. 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 He is on KITTY inhibitor & Coreg DVT prophylaxis: Lovenox Quality Measures - VTE Contraindication to Pharmacological VTE Prophylaxis: High Risk of Bleeding Contraindication to Mechanical VTE Prophylaxis: Ischemic Vascular Disease
--- NOTE | 2017-07-11 16:35 | CT Report ---
Exam: CT angio abdomen/femoral Date: 07/11/2017 3:24 PM Comparison: None Indication: History of peripheral vascular disease, ulcers to right lower extremity, history of prior left [id number] amputation. Technical: Axial CT imaging was performed from the lung bases through the iliac crest with to the toes. Coronal and sagittal reformatted images were additionally created and submitted for review. 3-D Maximal intensity projection images of the vasculature were additionally created and are available for review. 100 cc of Omnipaque 350 were utilized. Dose reduction: This CT exam was performed using one or more of the following dose reduction techniques: Automated exposure control, automated adjustment of the mA and/or KV according to patient size, or use of iterative reconstruction technique. Total DLP: 673.8 mGy*cm Findings: CT angiogram: Abdomen/pelvis. Descending thoracic aorta is nonaneurysmal. Minimal atherosclerotic plaque is noted within the thoracic and abdominal aorta. There is no significant abdominal aortic aneurysm. Minimal atherosclerotic plaque is noted throughout the abdominal aorta. The celiac artery demonstrates mild proximal stenosis. There is also mild stenosis at the proximal SMA and bilateral renal arteries, which are otherwise patent. Inferior mesenteric artery is patent with moderate stenosis at the origin. Distal aorta and bifurcation demonstrate no evidence of common iliac artery aneurysm and minimal scattered atherosclerotic plaque. Bilateral internal iliac arteries are patent. Bilateral external iliac arteries are patent with minimal atherosclerotic disease. Right lower extremity: Common femoral artery is patent with minimal atherosclerotic plaque. Superficial femoral artery demonstrates mild stenosis proximally. Distally, there is severe (95%) stenosis of the superficial femoral artery (axial image 200). There is also focal severe stenosis versus occlusion within the proximal popliteal artery. Popliteal artery is patent but otherwise diminutive with scattered areas of atherosclerotic plaque. Below the knee, the anterior tibial artery is patent. The tibia peroneal trunk is poorly opacified. There is suggestion of multifocal atherosclerotic plaque within the peroneal and anterior tibial arteries which are otherwise patent into the foot. The posterior tibial artery appears occluded proximally. Left lower extremity: Common femoral artery is patent. There is complete occlusion of the proximal superficial femoral artery. The femoral artery and branches are patent. Above the knee indicates postsurgical changes are noted. Soft tissue analysis: Lung bases: Posterior basilar atelectasis is noted. Trace pleural effusions are suggested bilaterally. There is also a small pericardial effusion, which is of uncertain significance. Liver and gallbladder: No abnormal enhancing hepatic lesions. No biliary ductal dilatation or gallstones. Oral is not well opacified. Spleen: Within normal limits. Pancreas: Unremarkable Adrenals: No focal lesions. Kidneys: Both kidneys are equally perfused and demonstrate no evidence for obstructive uropathy. Exophytic lower pole water density left renal cyst measuring 1.6 cm. Bowel and Mesentery: Small bowel is nondilated. Moderate stool noted throughout the colon which is otherwise within normal limits and appearance. There is no mesenteric adenopathy. There is no free fluid/air within the abdomen. Retroperitoneum: No enlarged lymph nodes. IVC: Patent Pelvis: Bladder: Bladder is moderately distended but otherwise grossly unremarkable. Fluid: No free fluid identified. Lymph nodes: No enlarged lymph nodes. Pelvic organs: Prostate does not appear to be enlarged. Osseous structures: No suspicious appearing osseous abnormalities noted. Multilevel mild degenerative changes noted within the thoracic and lumbar spine. Moderate to advanced disc space loss is noted at L5-S1. Impression: 1. 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 2. No evidence of aortoiliac artery aneurysm or significant stenosis. 3. Focal severe SFA and popliteal artery stenoses on the right. Two-vessel runoff to the right foot. 4. Posterior basilar atelectasis and small bilateral pleural effusions are of uncertain significance. PROCEDURE INTERPRETED AT [facility] DEPARTMENT OF RADIOLOGY Final Report Signed by: Anam Mills
[2017-07-11] MEDS: MUPIROCIN 2% OINT 22 GM TUBE TOP SCH (18:40)
[2017-07-11] MEDS: SIMVASTATIN 20 MG TABLET PO SCH (20:51)
[2017-07-12] MEDS: SODIUM CHLORIDE 0.9% 1,000 ML IV SCH ×2 (01:39→14:45)
--- NOTE | 2017-07-12 07:40 | Cardiology Progress Note ---
Cardiology - PN: Subj Interval history: Cardiology note 82-year-old man with large right leg ulcerations and rest pain. Completed CTA aorta with runoff study yesterday No chest pain or shortness of breath. O2 sat 95% on 2 L Blood pressure 140/72 Weight 67.1 kg Regular rhythm no murmur decreased breath sounds but fairly clear Abdomen nontender Impression Ischemic cardiomyopathy Status post three-vessel CABG November 1995 GALVEZ graft to LAD, vein graft OM branch and vein graft to cervical Status post left main stent and distal RCA stent July 19, 2013 PVD Hypertension Status post left leg AKA Status post ICD Large right leg ulcers with rest pain No evidence for heart failure Plan Dr. Fernandez to review CT angiogram Antibiotics and analgesics as needed Exam (Progress Note) - Constitutional Vitals: Period Temp Pulse Resp BP Sys/Vallejo Pulse Ox Last 24 Hr 97.1 F-99.8 F 80-87 18-18 134-146/57-73 95-100 Result/EKG - Labs CBC & BMP: 07/11/17 04:45 07/11/17 04:45 Labs: Laboratory Results - last 24 hr 07/11/17 07/11/17 07/11/17 10:54 16:29 20:32 POC Glucose 157 H 154 H 154 H 07/12/17 06:44 POC Glucose 108 H Quality Measures - VTE Contraindication to Pharmacological VTE Prophylaxis: High Risk of Bleeding Contraindication to Mechanical VTE Prophylaxis: Ischemic Vascular Disease
[2017-07-12] MEDS: INSULIN REGULAR 100 UNIT/ML SUBCUT SCH ×4 (08:27→20:27)
[2017-07-12] MEDS: ACETYLCYSTEINE 600 MG CAPSULE PO SCH ×2 (08:28→20:23)
[2017-07-12] MEDS: ASPIRIN CHEW 81 MG TABLET PO SCH (08:28)
[2017-07-12] MEDS: DOCUSATE SODIUM 100 MG CAPSULE PO SCH ×2 (08:28→20:23)
[2017-07-12] MEDS: CARVEDILOL 3.125 MG TABLET PO SCH ×2 (08:28→20:23)
[2017-07-12] MEDS: LISINOPRIL 5 MG TABLET PO SCH (08:28)
[2017-07-12] MEDS: PENTOXIFYLLINE 400 MG TABLET PO SCH ×3 (08:28→20:23)
[2017-07-12] MEDS: PANTOPRAZOLE 40 MG TABLET PO SCH (08:28)
--- NOTE | 2017-07-12 09:32 | Vascular Surgery Consult Note ---
History of Present Illness Chief complaint: diabetic gangrene right foot History of present illness: Mr. Osborne is a 82 year old male Mr. 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 Significantly he has had a left AKA amputation in the past and he has a contracture of the right leg and his family reports that he does not use the right leg any longer for transfer. He has a number of other problems including some chronic renal insufficiency and ischemic cardiomyopathy with a pacemaker and ICD. He has had a CT angiogram which I have reviewed and it shows fairly clean aortoiliac systems to the femorals on the right side his common femoral profunda are patent as is the superficial femoral although there is some very short occlusions of the proximal popliteal. There is diffuse atherosclerotic disease involving the tibial vessels. While it might be feasible to angioplasty or 2 in the right sternal work on the right superficial femoral popliteal and tibials I think it unlikely to be of any benefit for Mr. Osborne. The leg is contracted and is not being used at do not believe that any revascularization would improve the odds of this foot healing. I think the risks of the dye in the procedure most likely outweigh any benefit he would receive and do not recommend attempted revascularization. I explained to Mr. Osborne and 2 family members that my thoughts would be a above -knee amputation on the right the most appropriate therapy. Home Medications Medication Instructions Recorded Confirmed Type Aspirin Chew Tab 81 mg PO DAILY 05/31/15 07/07/17 History Simvastatin [Zocor] 20 mg PO BEDTIME 05/31/15 07/07/17 History Albuterol Inhaler [Proventil 2 puff INH Q4H PRN #1 inhaler 06/02/15 07/07/17 Rx Inhaler] Furosemide Tab [Lasix Tab] 40 mg PO DAILY 05/03/16 07/07/17 History Clopidogrel [Plavix] 75 mg PO DAILY 07/07/17 07/07/17 History Docusate Sodium 100 mg PO BID 07/07/17 07/07/17 History Glimepiride 2 mg PO DAILY 07/07/17 07/07/17 History Lisinopril 5 mg PO DAILY 07/07/17 07/07/17 History Pantoprazole Tab [Protonix Tab] 40 mg PO DAILY 07/07/17 07/07/17 History Polyethylene Glycol Powder 17 gm PO BEDTIME 07/07/17 07/07/17 History [Miralax] Allergies Allergy/AdvReac Type Severity Reaction Status Date / Time No Known Allergies Allergy Verified 06/02/16 07:19 Medical,Surgical,& Family Hx - Medical History Cardio: History of: CAD, Hypertension, Pacemaker, PVD HEENT: History of: Eye Problem (CATARACTS), Dental Problems Endocrine: History of: Diabetes Mellitus (NIDDM) Rheumatology: History of;: Rheumatoid Arthritis Respiratory: History of: Bronchitis, COPD Musculoskeletal: History of: Amputation (LT AKA) - Surgical History Cardiac Surgeries: Sugical HX of: Cardiac Catheterization, Cardiac Surgery (CABG ), Internal Defibrillator (dual chamber BiV AICD system DR CAVAZOS) HEENT Surgeries: Surgical HX of: Eye Surgery (COD) Orthopedic Surgeries: Surgical HX of;: Orthopedic Surgery - Family History Family History: Reports;: Family Diabetes - Social History Smoking Status: Former smoker Frequency of Alcohol Use: None Type of Drug Use: None Exam - Constitutional Vitals: Period Temp Pulse Resp BP Sys/Vallejo Pulse Ox Last 24 Hr 97.1 F-99.8 F 80-87 18-18 134-146/57-73 95-100 Quality Measures - VTE Contraindication to Pharmacological VTE Prophylaxis: High Risk of Bleeding Contraindication to Mechanical VTE Prophylaxis: Ischemic Vascular Disease Results - Labs CBC & BMP: 07/11/17 04:45 07/11/17 04:45
--- NOTE | 2017-07-12 10:12 | Hospitalist Progress Note ---
Assessment and Plan (1) Diabetes mellitus Status: Chronic Assessment and plan: Continue medications and sliding scale insulin. Current Visit: Yes Qualifiers: Diabetes mellitus type: type 2 Diabetes mellitus complication status: with circulatory complication Diabetes mellitus jail insulin use: without intermission coordinator use (2) Ischemic cardiomyopathy Status: Chronic Assessment and plan: Followed by cardiology. Consult reviewed. Current Visit: Yes (3) Coronary artery disease Status: Chronic Current Visit: Yes (4) Peripheral arterial disease Problem details: Peripheral arterial disease of the right lower extremity with large ulcerations and significant rest pain. He has an abnormal vascular study from [facility] that warrants at least a CTA and possibly formal arteriogram, but we may be looking at AKA. Status: Chronic Assessment and plan: CTA and vascular surgery consult reviewed. Recommendations for right AKA made. Current Visit: Yes (5) Leg pain Status: Acute Current Visit: Yes Qualifiers: Laterality: right Qualified Code(s): M79.604 - Pain in right leg (6) ICD (implantable cardioverter-defibrillator) in place Status: Chronic Current Visit: Yes (7) CKD stage 2 due to type 2 diabetes mellitus Status: Chronic Current Visit: Yes Hospitalist: Subjective Interval history: Patient seen and examined. No acute events overnight. Case discussed with nursing staff. Labs reviewed. The patient was seen and examined with his family members at the bedside. Progress notes from vascular surgery and cardiology were reviewed. Recommendations were made for an above-knee amputation on the right. Exam - Constitutional Vitals: Period Temp Pulse Resp BP Sys/Vallejo Pulse Ox Last 24 Hr 97.1 F-99.8 F 80-87 18-18 134-146/57-73 95-100 Exam: Constitutional System: No distress. No tremulousness. Head: Normocephalic, atraumatic. Ears, Nose and Throat System: No pain or tenderness. No epistaxis or discharge Eyes System: Pupils equal, round, and reactive. Extraocular muscles intact. Neck: Supple, without adenopathy, No jugular venous distention. No thyromegaly, neck mass, or prior surgery apparent. Respiratory System: Chest clear to auscultation. Cardiovascular System: Heart with regular rate and rhythm. No murmur. GI System: Abdomen soft, nontender. Normo active bowel sounds present. Musculoskeletal System: limbs with no pedal edema. A left AKA is noted. The right lower extremity is wrapped. He describes pain on the lateral aspect of the left leg below the knee. Neurological System: No discernable sensory deficit. No aphasia Psychiatric System: Conversation is rational Results - Labs CBC & BMP: 07/11/17 04:45 07/11/17 04:45 Lab Results: I have reviewed the past 24 hour labs Quality Measures - VTE Contraindication to Pharmacological VTE Prophylaxis: High Risk of Bleeding Contraindication to Mechanical VTE Prophylaxis: Ischemic Vascular Disease
[2017-07-12] MEDS: FUROSEMIDE 40 MG TABLET PO SCH (10:17)
[2017-07-12] MEDS: MUPIROCIN 2% OINT 22 GM TUBE TOP SCH (10:35)
--- NOTE | 2017-07-12 11:39 | Nephrology Progress Note ---
Nephrology - PN: Subj Interval history: Mr. Osborne is seen in follow-up of his stage II chronic kidney disease. He underwent CT angios 100 cc of contrast yesterday no creatinine is drawn today but we will draw one tomorrow. His chest is clear and his heart without rub or gallop. The plan is for a right above-knee amputation as the best option. Patient and family member understand that. We will continue to follow his kidney function. Exam (PN)-Nephrology - Vital Signs Vital signs: Period Temp Pulse Resp BP Sys/Vallejo Pulse Ox Last 24 Hr 97.1 F-99.8 F 80-87 18-18 134-146/57-73 95-100 - Lab 07/11/17 04:45 07/11/17 04:45 Most recent lab results Calcium 8.0 MG/DL (8.5-10.1) L 07/11/17 04:45 Magnesium 1.7 MG/DL (1.8-2.4) L 07/11/17 04:45 Assessment and Plan (1) CKD stage 2 due to type 2 diabetes mellitus Status: Chronic Assessment and plan: Long-standing diabetes mellitus Current Visit: Yes (2) Diabetes mellitus Status: Chronic Current Visit: Yes Qualifiers: Diabetes mellitus type: type 2 Diabetes mellitus complication status: with circulatory complication Diabetes mellitus moth exterminator insulin use: without moth exterminator use (3) Peripheral arterial disease Problem details: Peripheral arterial disease of the right lower extremity with large ulcerations and significant rest pain. He has an abnormal vascular study from [facility] that warrants at least a CTA and possibly formal arteriogram, but we may be looking at AKA. Status: Chronic Current Visit: Yes
--- NOTE | 2017-07-12 13:39 | General Surgery Progress Note ---
Assessment and Plan (1) Peripheral arterial disease Problem details: Peripheral arterial disease of the right lower extremity with large ulcerations and significant rest pain. He has an abnormal vascular study from [facility] that warrants at least a CTA and possibly formal arteriogram, but we may be looking at AKA. Status: Chronic Assessment and plan: 07/07/17 Admit for baseline labs and, depending on his creatinine, we will plan for CTA vs. formal arteriogram to see if any interventional procedures could be of benefit. Certainly his wounds are very advanced, and will require a prolonged period of care for healing, even with reconstituted blood flow. He and his family are aware of this. 07/08/2017. Peripheral arterial disease with ischemic right lower extremity right lower extremity. His creatinine is elevated, unfortunately limiting her ability to proceed with investigation with CTA. We have consulted nephrology, and are administering gentle IV fluids and Mucomyst. We will go ahead and schedule this for Tuesday and hopefully will have a better idea of the extensive nature of his disease. His family was not present during this visit, however no surgery can be planned at this point until we are better able to determine how extensive his occlusion may be. 07/12/17 Ischemic ulceration of the right lower leg with what appears to be severe rest pain. Dr Peacock's evaluation has been noted and apparently the best option for this gentleman is AKA. I reiterated this with the family and Mr Osborne, but Dr Fernandez will be by to discuss the particulars and their wishes/ consent to amputate. Certainly his rest pain seems to be very pronounced and significant, and he would benefit from amputation in that, once healed, it would offer pain relief and allow him to rest and eat normally again. Current Visit: Yes (2) Diabetes mellitus Status: Chronic Assessment and plan: Type 2, DM. We will monitor, place on sliding scale insulin, and have Hospital Medicine follow closely with us. We will need to watch his creatinine closely as well, considering that he will likely be placed on antibiotics which could potentially be nephrotoxic. 07/08/2017. Type 2 diabetes. Hospital medicine is following Current Visit: Yes Qualifiers: Diabetes mellitus type: type 2 Diabetes mellitus complication status: with circulatory complication Diabetes mellitus halfway insulin use: without halfway use (3) Ischemic cardiomyopathy Status: Chronic Assessment and plan: History of ischemic cardiac disease. Presently the patient is asymptomatic but appears to be extremely debilitated due to this and his other medical comorbidities. Dr Nelson has followed in the past. We will monitor his labs and fluid intake and get cardiac consult. 07/08/2017. Ischemic cardiomyopathy with ICD in place. He is being followed by Vianca NEVES and . An echocardiogram and EKG have been performed and his medications have been adjusted. We appreciate them following along with this during the perioperative period. Current Visit: Yes Subjective Patient reports: Present: still having pain, other (His pain is continuous, if anything it is worse, and he is finding it difficult to eat or sleep due to pain.) Exam - Constitutional Vitals: Period Temp Pulse Resp BP Sys/Vallejo Pulse Ox Last 24 Hr 97.1 F-99.8 F 80-87 18-18 128-146/57-72 95-100 General appearance: under weight, disheveled, other (He is found sitting with the head of the bed at 90 degrees, his holding his right leg with both hands and the leg hanging off the bed. 2 family members are present at the bedside and voiced that the were present when Dr Peacock made his consult. ) - Respiratory Respiratory exam: Absent: wheezes - Extremities Exam Extremities exam: Present: other (Right lower extremity with pallor from mid calf distally; there is skin loss at the posterior calf and along the lateral edge. He is very tender. There is no gross purulence. Some of the eschar is softening, and there is pale tissue seen beneath. ) - Neurological Exam Neurological exam: Present: alert, oriented X3 Results - Labs CBC & BMP: 07/11/17 04:45 07/11/17 04:45 Quality Measures - VTE Contraindication to Pharmacological VTE Prophylaxis: High Risk of Bleeding Contraindication to Mechanical VTE Prophylaxis: Ischemic Vascular Disease
[2017-07-12] MEDS: LEVOFLOXACIN INJ 500 MG in PREMIX 1 EACH IV SCH (14:45)
--- NOTE | 2017-07-12 16:33 | Event Note ---
07/12/2017 1630 hrs. Patient remains in pain in his lower extremity at this time. CT a had been performed and showed disease in the lower extremities and the vessels at this level. Vascular Dr. Peacock was consulted and his recommendation was that there was nothing that could be done to improve the circulation. Also concern is he has a contracture at the knee because of the wrist pain and he has been dealing with and cannot straighten it out and cannot use his leg. This gives us the only option of an amputation. Had a long discussion with the patient and the family was in the room about the situation and the findings of the CTA and circulation and the recommendations of Dr. Springer. They clearly seem to understand this and he seems understand that he is in pain and not able to eat or rest at night. I described to him that our only option was an amputation and that the best area of the amputation will be above the knee because of that contracture and the best chance of healing would be above the knee. He understands the risks and complications and he is ready for this surgery because of the pain and discomfort that he is undergoing at this time. In light of that was elected to go ahead and set him up for surgery tomorrow since they are agreeable and understand the risks and complications.
[2017-07-12] MEDS: ENOXAPARIN 40 MG/0.4 ML SYRINGE SUBCUT SCH (17:03)
--- NOTE | 2017-07-12 18:07 | XRay Report ---
XR chest 1V portable Indication: Preop respiratory evaluation. Comparison: Chest x-ray 05/03/2016. Technique: Portable AP chest was performed. Findings: Heart size is upper limits of normal. Sternal wires are stable. AICD is stable. Pulmonary vasculature appears within normal limits. No significant abnormality of the mediastinal contours demonstrated. Lungs are clear. Minimal blunting of the costophrenic angles is noted bilaterally. This finding is stable. Bones and soft tissues demonstrate no significant abnormalities. Impression: 1. No adverse interval change in the chest. Small bilateral pleural effusions are suggested, larger on the left than the right. 07/12/2017 6:03 PM PROCEDURE INTERPRETED AT [facility] DEPARTMENT OF RADIOLOGY Final Report Signed by: Dr. Chavez Ewing
[2017-07-12] MEDS: SIMVASTATIN 20 MG TABLET PO SCH (20:23)
[2017-07-13] MEDS: SODIUM CHLORIDE 0.9% 1,000 ML IV SCH ×3 (03:53→13:05)
[2017-07-13 05:20] LABS: Eosinophils # 0.3 10*3/uL (0.0-0.87); Eosinophils % 4.5 % (0.00-10.9); Hematocrit 28.8 VOL% (42.0-52.0); Hemoglobin 9.5 GM/DL (14.0-18.0); Immature Granulocytes % 0.7 %; Immature Granulocytes Absolute 0.04 #; Lymphocytes # 0.6 10*3/uL (1.4-4.0); Lymphocytes % 11.1 % (21.2-54.2); Mean Corpuscular Hemoglobin 29 PG (27-34); Mean Corpuscular Volume 88.3 FL (87-102); Mean Platelet Volume 9.6 FL (9.6-12.0); Monocytes # 0.4 10*3/uL (0.11-0.8); Monocytes % 6.6 % (1.7-12.7); Neutrophils # 4.4 10*3/uL (1.4-7.4); Neutrophils % 77.1 % (38.7-73.9); Platelet Count 219 T/CUMM (130-400); Red Blood Count 3.26 MC/CUMM (3.8-5.5); Red Cell Distribution Width 13.8 % (9.3-17.3); White Blood Count 5.8 T/CUMM (4-12)
[2017-07-13 05:55] LABS: Calcium 7.2 MG/DL (8.5-10.1); Magnesium 1.5 MG/DL (1.8-2.4); Osmolality,Calculated 286.4 MOS/KG (273-304); Potassium 4.2 MMOL/L (3.5-5.1)
[2017-07-13] MEDS ORDERED: ceFAZolin 2,000 MG in PREMIX 1 EACH IV ONE (06:00)
[2017-07-13] MEDS: INSULIN REGULAR 100 UNIT/ML SUBCUT SCH ×4 (08:09→21:23)
[2017-07-13] MEDS: PANTOPRAZOLE 40 MG TABLET PO SCH (08:15)
[2017-07-13] MEDS: CARVEDILOL 3.125 MG TABLET PO SCH ×2 (08:16→21:22)
[2017-07-13] MEDS: LISINOPRIL 5 MG TABLET PO SCH (08:16)
[2017-07-13] MEDS: LACTATED RINGERS 1,000 ML IV SCH ×2 (09:41→11:01)
[2017-07-13] MEDS ORDERED: ceFAZolin 1,000 MG VIAL ONE (09:41)
[2017-07-13] MEDS ORDERED: HYDROmorphone 2 MG/1 ML VIAL IV PRN ×2 (11:24→11:53)
[2017-07-13] MEDS ORDERED: ONDANSETRON 4 MG/2 ML VIAL IV PRN ×2 (11:24→11:53)
[2017-07-13] MEDS ORDERED: MIDAZOLAM 2 MG/2 ML VIAL ONE (11:49)
[2017-07-13] MEDS ORDERED: PROPOFOL 200 MG/20 ML VIAL IV ONE (11:49)
[2017-07-13] MEDS ORDERED: SEVOFLURANE 1 UNIT/15 MINUTE INH ONE (11:49)
[2017-07-13] MEDS ORDERED: EPINEPHrine 1 MG/10 ML SYRINGE ONE (11:49)
[2017-07-13] MEDS ORDERED: fentaNYL 100 MCG/2 ML VIAL ONE (11:49)
[2017-07-13] MEDS ORDERED: KETAMINE 500 MG/10 ML VIAL ONE (11:50)
[2017-07-13] MEDS ORDERED: ONDANSETRON 4 MG/2 ML VIAL ONE (11:50)
[2017-07-13] MEDS ORDERED: LACTATED RINGERS 1,000 ML IV ONE (11:50)
[2017-07-13 11:59] LABS: Amorphous Crystals,Urine Occasional /HPF (Few); Apearance,Urine Clear (Clear); Bilirubin,Urine Negative (Negative); Blood, Urine Trace mg/dL (Negative); Glucose,Urine (UA) 150 mg/dL (Negative); Ketones,Urine 25 mg/dL (Negative); Nitrite,Urine Negative (Negative); Protein,Urine 100 MG/DL; RBC,Urine 2 /HPF (0-4); Urine Color Yellow (Yellow); Urine Specific Gravity 1.015 (1.001-1.035); WBC,Urine 4 /HPF (0-6)
--- NOTE | 2017-07-13 12:19 | EKG Report ---
Stationary ECG Study [facility] Test Date: 07/13/2017 12:18:36 PM Pat Name: Mary STILES Department: Room: 333 Gender: M Communication Specialist: FLORY : 1935 Requested by: Madhav Fernandez Order Number: [id number] Reading MD: HONEY LINDQUIST Intervals [place] Rate: 75 P: 42 MI: 153 QRS: 261 QRSD: 155 T: 75 QT: 463 QTc: 492 Interpretive Statements ELECTRONIC VENTRICULAR PACEMAKER NORMAL SINUS RHYTHM Electronically Signed On 07-13-17 16:59:35 CDT by HONEY LINDQUIST [email or web address]
[2017-07-13] MEDS ORDERED: ENOXAPARIN 30 MG/0.3 ML SYRINGE SUBCUT SCH (12:30)
[2017-07-13 12:34] LABS: Hematocrit 26.4 VOL% (42.0-52.0); Hemoglobin 8.6 GM/DL (14.0-18.0)
[2017-07-13] MEDS: LEVOFLOXACIN INJ 250 MG in PREMIX 1 EACH IV SCH (14:00)
--- NOTE | 2017-07-13 14:04 | Nephrology Progress Note ---
Nephrology - PN: Subj Interval history: Mr. Osborne is seen in follow-up of his chronic renal impairment and now with an acute component. He underwent contrast administration on July 11 and had amputation above the knee of his right leg today. Blood pressure stable and he is in no distress. His chest x-ray yesterday was clear and without evidence of volume overload. He does not have any edema. He does now have a Flores catheter. I agree with saline administration and will continue to follow with you. If this renal dysfunction is due to contrast administration it should resolve in time. Will maintain euvolemia and discontinue his KITTY inhibitor. Exam (PN)-Nephrology - Vital Signs Vital signs: Period Temp Pulse Resp BP Sys/Vallejo Pulse Ox Last 24 Hr 97.5 F-99.4 F 75-90 12-46 97-170/43-69 96-100 - Lab 07/13/17 12:27 07/13/17 03:56 Most recent lab results Calcium 7.2 MG/DL (8.5-10.1) L 07/13/17 03:56 Magnesium 1.5 MG/DL (1.8-2.4) L 07/13/17 03:56 Assessment and Plan (1) CKD stage 2 due to type 2 diabetes mellitus Status: Chronic Assessment and plan: Long-standing diabetes mellitus Current Visit: Yes (2) Diabetes mellitus Status: Chronic Current Visit: Yes Qualifiers: Diabetes mellitus type: type 2 Diabetes mellitus complication status: with circulatory complication Diabetes mellitus retirement insulin use: without retirement use (3) Peripheral arterial disease Problem details: Peripheral arterial disease of the right lower extremity with large ulcerations and significant rest pain. He has an abnormal vascular study from [facility] that warrants at least a CTA and possibly formal arteriogram, but we may be looking at AKA. Status: Chronic Current Visit: Yes
[2017-07-13] MEDS: PENTOXIFYLLINE 400 MG TABLET PO SCH ×3 (14:56→21:22)
[2017-07-13] MEDS: ASPIRIN CHEW 81 MG TABLET PO SCH (14:56)
[2017-07-13] MEDS: DOCUSATE SODIUM 100 MG CAPSULE PO SCH ×2 (14:56→21:22)
[2017-07-13] MEDS: MUPIROCIN 2% OINT 22 GM TUBE TOP SCH (14:56)
--- NOTE | 2017-07-13 15:16 | Cardiology Progress Note ---
Cardiology - PN: Subj Interval history: Cardiology note Status post right AKA today. Telemetry shows sinus rhythm with ventricular pacing Blood pressure 120/62 O2 sat 95% on room air. Regular rhythm soft systolic murmur Decreased breath sounds but clear Chest x-ray cardiomegaly no heart failure Lab data Sodium 140 potassium 4.2 chloride 109 CO2 20 BUN 36 creatinine 2.50 glucose 97 Hemoglobin 8.6 hematocrit 26.4 Impression Ischemic cardiomyopathy Status post right leg AKA today Status post CT aorta with runoff Tuesday with progressive renal dysfunction Blood pressure and rhythm are stable. Chest x-ray is clear at this time Status post three-vessel CABG November 1995 GALVEZ to LAD, vein graft to OM branch , vein graft to circumflex Status post left main stent and distal RCA stent July 19, 2013 PVD Status post left leg AKA Status post ICD Plan Cautious fluids BMP in a.m. Wound care antibiotic Analgesics as needed Watch closely for heart failure Holding lisinopril Exam (Progress Note) - Constitutional Vitals: Period Temp Pulse Resp BP Sys/[place] Pulse Ox Last 24 Hr 97.5 F-99.4 F 74-90 12-46 97-170/43-69 96-100 Result/EKG - Labs CBC & BMP: 07/13/17 12:27 07/13/17 03:56 Labs: Laboratory Results - last 24 hr 07/12/17 07/12/17 07/12/17 15:59 16:40 20:26 WBC RBC Hgb Hct MCV MCH MCHC RDW Plt Count MPV Neut % (Auto) Lymph % (Auto) [place] % (Auto) Eos % (Auto) Baso % (Auto) Neut # (Auto) Lymph # (Auto) [place] # (Auto) Eos # (Auto) Baso # (Auto) Immature Gran % Nucleated RBC % Immature Gran # Nucleated RBCs # Immature Plt Fraction Sodium Potassium Chloride Carbon Dioxide Anion Gap BUN Creatinine GFR Calculation BUN/Creatinine Ratio Glucose POC Glucose 119 H 99 Calculated Osmolality Calcium Magnesium Urine Color Urine Appearance Urine pH Ur Specific [place] Urine Protein Urine Glucose (UA) Urine Ketones Urine Blood Urine Nitrate Urine Bilirubin Urine Urobilinogen Urine Leukocytes Urine RBC Urine WBC Amorphous Crystals Ur Culture Indicated? Blood Type O POSITIVE Antibody Screen Negative 07/13/17 07/13/17 07/13/17 03:56 03:56 06:45 WBC 5.8 RBC 3.26 L Hgb 9.5 L Hct 28.8 L MCV 88.3 MCH 29 MCHC 33.0 RDW 13.8 Plt Count 219 MPV 9.6 Neut % (Auto) 77.1 H Lymph % (Auto) 11.1 L [place] % (Auto) 6.6 Eos % (Auto) 4.5 Baso % (Auto) 0.0 Neut # (Auto) 4.4 Lymph # (Auto) 0.6 L [place] # (Auto) 0.4 Eos # (Auto) 0.3 Baso # (Auto) 0.0 Immature Gran % 0.7 Nucleated RBC % 0.0 Immature Gran # 0.04 Nucleated RBCs # 0.00 Immature Plt Fraction 0.0 Sodium 140 Potassium 4.2 Chloride 109 H Carbon Dioxide 20 L Anion Gap 15.2 H BUN 36 H Creatinine 2.50 H GFR Calculation 23 BUN/Creatinine Ratio 14.00 Glucose 97 POC Glucose 118 H Calculated Osmolality 286.4 Calcium 7.2 L Magnesium 1.5 L Urine Color Urine Appearance Urine pH Ur Specific [place] Urine Protein Urine Glucose (UA) Urine Ketones Urine Blood Urine Nitrate Urine Bilirubin Urine Urobilinogen Urine Leukocytes Urine RBC Urine WBC Amorphous Crystals Ur Culture Indicated? Blood Type Antibody Screen 07/13/17 07/13/17 11:48 12:27 WBC RBC Hgb 8.6 L Hct 26.4 L MCV MCH MCHC RDW Plt Count MPV Neut % (Auto) Lymph % (Auto) [place] % (Auto) Eos % (Auto) Baso % (Auto) Neut # (Auto) Lymph # (Auto) [place] # (Auto) Eos # (Auto) Baso # (Auto) Immature Gran % Nucleated RBC % Immature Gran # Nucleated RBCs # Immature Plt Fraction Sodium Potassium Chloride Carbon Dioxide Anion Gap BUN Creatinine GFR Calculation BUN/Creatinine Ratio Glucose POC Glucose Calculated Osmolality Calcium Magnesium Urine Color Yellow Urine Appearance Clear Urine pH 6.0 Ur Specific [place] 1.015 Urine Protein 100 Urine Glucose (UA) 150 Urine Ketones 25 Urine Blood Trace Urine Nitrate Negative Urine Bilirubin Negative Urine Urobilinogen 2.0 H Urine Leukocytes Negative Urine RBC 2 Urine WBC 4 Amorphous Crystals Occasional Ur Culture Indicated? Not indicated Blood Type Antibody Screen Quality Measures - VTE Contraindication to Pharmacological VTE Prophylaxis: High Risk of Bleeding
[2017-07-13] MEDS ORDERED: MAGNESIUM SULF RIDER 2 GM in PREMIX 1 EACH IV PRN (15:53)
[2017-07-13] MEDS ORDERED: MAGNESIUM SULF RIDER 4 GM in PREMIX 1 EACH IV PRN (15:53)
--- NOTE | 2017-07-13 17:07 | Hospitalist Progress Note ---
Assessment and Plan (1) Diabetes mellitus Status: Chronic Assessment and plan: Continue medications and sliding scale insulin. Current Visit: Yes Qualifiers: Diabetes mellitus type: type 2 Diabetes mellitus complication status: with circulatory complication Diabetes mellitus [facility] insulin use: without dedicated intermodal truck driver use (2) Ischemic cardiomyopathy Status: Chronic Assessment and plan: Followed by cardiology. Consult reviewed. Current Visit: Yes (3) Coronary artery disease Status: Chronic Current Visit: Yes (4) Peripheral arterial disease Problem details: Peripheral arterial disease of the right lower extremity with large ulcerations and significant rest pain. He has an abnormal vascular study from [facility] that warrants at least a CTA and possibly formal arteriogram, but we may be looking at AKA. Status: Chronic Assessment and plan: CTA and vascular surgery consult reviewed. Recommendations for right AKA made. 07/13/17: Postop day 0 status post right AKA. Current Visit: Yes (5) Leg pain Status: Acute Current Visit: Yes Qualifiers: Laterality: right Qualified Code(s): M79.604 - Pain in right leg (6) ICD (implantable cardioverter-defibrillator) in place Status: Chronic Current Visit: Yes (7) CKD stage 2 due to type 2 diabetes mellitus Status: Chronic Current Visit: Yes Hospitalist: Subjective Interval history: Patient was seen and examined in the ICU postop right AKA. No acute events noted. Flores catheter in place. Vital signs stable. Patient resting comfortably. Exam - Constitutional Vitals: Period Temp Pulse Resp BP Sys/[place] Pulse Ox Last 24 Hr 97.8 F-99.4 F 69-90 12-46 97-170/43-80 96-100 Exam: Constitutional System: No distress. No tremulousness. Resting comfortably. Head: Normocephalic, atraumatic. Ears, Nose and Throat System: No pain or tenderness. No epistaxis or discharge Eyes System: Pupils equal, round, and reactive. Neck: Supple, without adenopathy, No jugular venous distention. Respiratory System: Chest clear to auscultation. Cardiovascular System: Heart with regular rate and rhythm. No murmur. GI System: Abdomen soft, nontender. Normo active bowel sounds present. Musculoskeletal System: limbs with no pedal edema. A left AKA is noted. Right AKA postop day 0; wrapped with clean dry and intact dressing Neurological System: No discernable sensory deficit. No aphasia Psychiatric System: Conversation is rational Results - Labs CBC & BMP: 07/13/17 12:27 07/13/17 03:56 Lab Results: I have reviewed the past 24 hour labs Quality Measures - VTE Contraindication to Pharmacological VTE Prophylaxis: High Risk of Bleeding
--- NOTE | 2017-07-13 18:06 | Operative Note ---
Date of procedure: 07/13/17 Pre-op diagnosis: Ischemic ulcerations of the right leg and foot Post-op diagnosis: same Procedure: Operative note: Preoperative diagnosis: Vascular ulcerations of the right leg and foot secondary to underlying peripheral arterial disease Postop diagnosis: Same Procedure: Right AKA amputation Surgeon Dr. Fernandez Labor Expediter Meenakshi Boswell, SYSTEM PROGRAMMER ACNP Anesthesia was general endotracheal Brief history: 82-year-old male who is having extremely severe wrist pain where he is not eating well and not sleeping well due to vascular ulcerations of the right lower extremity. He came in where he has renal insufficiency we improve that to the point we can get a CTA of this leg. It did indicate that there was some significant peripheral vascular disease lower extremities. We consulted Dr. Peacock to evaluate situation he did not feel like there is anything that was reconstructable at this point time. Because of his severe pain I discussed with him about the amputation. He was very agreeable with that he was ready to have it done because he was in such young usual discomfort. He understood the need to have it above the knee because of the contracture that has developed in that right knee. Procedure: With patient prepped and draped in sterile fashion timeout and antibiotics completed we approach this area the right lower extremity. There is contracture of the needed to stretch out but it is guided up well enough that we can see what we need to do. We created a [place] type of planned incision on the right thigh just above the knee creating a anterior and posterior flap area. Once we had those drawn out we then took a knife made incision through the skin subtenons tissue all way around going down to the level of the fascia. We then control some bleeding with electrocauterization as well as some ties of 3-0 Vicryl. At that point went through the muscle and the fascia as well as the tendons posteriorly in order to get down to the area of the vessels. Once we got down to the vessels medially we were able to put Giuliana clamps on the artery and divided it and then closed so it with a 2-0 Ethibond tie and a transfix of 2 Ethibond. Similarly we did this to the vein tied it with 2-0 Ethibond and transfix a 2-0 Ethibond after we divided it. We then identify the nerves we pulled him down firmly tightened with 2-0 Ethibond cut them sharply so they would retract. Once we had these divided completely and the flap created there we went up to the bone. With to the periosteum then used a periosteal elevator to elevate this up about 2 inches above the incision site. We then took an oscillating saw and went and divided the femur tapering the upper part of it. Once that was off completely we took leg off the table to go to pathology. At that point smooth down the edges of the bone and we washed irrigated with saline solution. With that looking pretty clean no unusual bleeding seen at this point time then we went ahead and closed the periosteum over the bone with interrupted did 2-0 Vicryl suture. At that point then we brought the muscles up over the bone playing a #10 Jonathan-Cervantes drain underneath it sutured it with 2-0 Vicryl sutures. We then closed the fascia over this with interrupted 2-0 Vicryl sutures. Once that was completed then we closed the skin with vertical mattress of 3-0 nylon and skin clips. Secured the drain in 3-0 nylon. We then put a bulky dressing on and we took patient recovery room at this time. Estimated blood loss 50 60 cc Sponge count correct 2 Drains one #10 Jonathan-Cervantes Complications none Condition stable satisfactory Anesthesia: TIFFANY Surgeon / Physician: Madhav Fernandez Labor Expediter: Meenakshi Boswell Estimated blood loss: other (50 cc) Specimens: other (Right lower extremity) Condition: stable Disposition: ICU Results - Labs CBC & BMP: 07/13/17 12:27 07/13/17 03:56 Discharge Plan - Discharge Medications No Action Simvastatin [Zocor] 20 mg PO BEDTIME Aspirin Chew Tab 81 mg PO DAILY Albuterol Inhaler [Proventil Inhaler] 2 puff INH Q4H PRN #1 inhaler PRN Reason: Shortness Of Breath/Wheezing Furosemide Tab [Lasix Tab] 40 mg PO DAILY Clopidogrel [Plavix] 75 mg PO DAILY Polyethylene Glycol Powder [Miralax] 17 gm PO BEDTIME Pantoprazole Tab [Protonix Tab] 40 mg PO DAILY Glimepiride 2 mg PO DAILY Docusate Sodium 100 mg PO BID Lisinopril 5 mg PO DAILY - Follow Up or Referral - Forms/Instructions
[2017-07-13] MEDS: ceFAZolin 2,000 MG in PREMIX 1 EACH IV SCH (19:04)
[2017-07-13 20:12] LABS: Hematocrit 26.4 VOL% (42.0-52.0); Hemoglobin 8.7 GM/DL (14.0-18.0)
[2017-07-13] MEDS: SIMVASTATIN 20 MG TABLET PO SCH (21:22)
[2017-07-14] MEDS: ceFAZolin 2,000 MG in PREMIX 1 EACH IV SCH (00:15)
[2017-07-14 06:04] LABS: Basophils % 0.1 % (0.0-0.8); Eosinophils # 0.1 10*3/uL (0.0-0.87); Eosinophils % 1.5 % (0.00-10.9); Hematocrit 25.6 VOL% (42.0-52.0); Hemoglobin 8.5 GM/DL (14.0-18.0); Immature Granulocytes % 0.4 %; Immature Granulocytes Absolute 0.03 #; Lymphocytes # 0.7 10*3/uL (1.4-4.0); Mean Corpuscular HGB Conc 33.2 GM/DL (32-36); Mean Corpuscular Hemoglobin 30 PG (27-34); Mean Corpuscular Volume 89.2 FL (87-102); Mean Platelet Volume 9.5 FL (9.6-12.0); Monocytes # 0.5 10*3/uL (0.11-0.8); Monocytes % 5.8 % (1.7-12.7); Neutrophils # 6.5 10*3/uL (1.4-7.4); Neutrophils % 83.2 % (38.7-73.9); Platelet Count 194 T/CUMM (130-400); Red Blood Count 2.87 MC/CUMM (3.8-5.5); White Blood Count 7.8 T/CUMM (4-12)
[2017-07-14 06:40] LABS: Calcium 7.2 MG/DL (8.5-10.1); Potassium 4.3 MMOL/L (3.5-5.1)
[2017-07-14 06:56] LABS: Band Neutrophils 4 % (0-10); Eosinophils 1 % (0-10); Hypochromasia Slight; Lymphocytes 8 % (20-55); Microcytosis 1+; Segmented Neutrophils 81 % (50-85); Total Cells Counted 100
[2017-07-14 06:57] LABS: Platelet Estimate Adequate
--- NOTE | 2017-07-14 07:32 | Cardiology Progress Note ---
Cardiology - PN: Subj Interval history: Cardiology note Postop day #1 right AKA. Telemetry shows sinus rhythm with ventricular pacing Blood pressure 130/60 O2 sat 97% on room air Regular rhythm soft systolic murmur Decreased breath sounds but fairly clear Abdomen benign Wound edges dry Lab data today White count 7.8 hemoglobin 8.5 hematocrit 25.6 Sodium 143 potassium 4.3 chloride 113 CO2 20 BUN 43 creatinine up to 3.60 Impression Ischemic cardiomyopathy Postop day 1 right leg AKA Acute superimposed on chronic renal failure. Creatinine today up to 3.60 Status post three-vessel CABG November 1995 with GALVEZ graft to LAD, vein graft to OM branch and vein graft to circumflex status post left main stent and distal RCA stent July 19, 2013 Status post left leg AKA Status post ICD PVD Plan Cautious fluids. Wound care and antibiotic BMP in a.m. Watch for CHF Exam (Progress Note) - Constitutional Vitals: Period Temp Pulse Resp BP Sys/Vallejo Pulse Ox Last 24 Hr 97.9 F-99.2 F 65-84 12-46 97-170/43-80 96-100 Result/EKG - Labs CBC & BMP: 07/14/17 04:54 07/14/17 04:54 Labs: Laboratory Results - last 24 hr 07/13/17 07/13/17 07/13/17 11:48 12:27 16:40 WBC RBC Hgb 8.6 L Hct 26.4 L MCV MCH MCHC RDW Plt Count MPV Neut % (Auto) Lymph % (Auto) [place] % (Auto) Eos % (Auto) Baso % (Auto) Neut # (Auto) Lymph # (Auto) [place] # (Auto) Eos # (Auto) Baso # (Auto) Total Counted Immature Gran % Nucleated RBC % Immature Gran # Segmented Neutrophils Band Neutrophils Lymphocytes Monocytes Eosinophils Nucleated RBCs # Platelet Estimate Immature Plt Fraction Hypochromasia Microcytosis Sodium Potassium Chloride Carbon Dioxide Anion Gap BUN Creatinine GFR Calculation BUN/Creatinine Ratio Glucose POC Glucose 151 H Calculated Osmolality Calcium Urine Color Yellow Urine Appearance Clear Urine pH 6.0 Ur Specific [place] 1.015 Urine Protein 100 Urine Glucose (UA) 150 Urine Ketones 25 Urine Blood Trace Urine Nitrate Negative Urine Bilirubin Negative Urine Urobilinogen 2.0 H Urine Leukocytes Negative Urine RBC 2 Urine WBC 4 Amorphous Crystals Occasional Ur Culture Indicated? Not indicated 07/13/17 07/13/17 07/14/17 19:58 20:29 04:54 WBC RBC Hgb 8.7 L Hct 26.4 L MCV MCH MCHC RDW Plt Count MPV Neut % (Auto) Lymph % (Auto) [place] % (Auto) Eos % (Auto) Baso % (Auto) Neut # (Auto) Lymph # (Auto) [place] # (Auto) Eos # (Auto) Baso # (Auto) Total Counted Immature Gran % Nucleated RBC % Immature Gran # Segmented Neutrophils Band Neutrophils Lymphocytes Monocytes Eosinophils Nucleated RBCs # Platelet Estimate Immature Plt Fraction Hypochromasia Microcytosis Sodium 143 Potassium 4.3 Chloride 113 H Carbon Dioxide 20 L Anion Gap 14.3 BUN 43 H Creatinine 3.60 H GFR Calculation 15 BUN/Creatinine Ratio 11.00 Glucose 83 POC Glucose 266 H Calculated Osmolality 294.0 Calcium 7.2 L Urine Color Urine Appearance Urine pH Ur Specific [place] Urine Protein Urine Glucose (UA) Urine Ketones Urine Blood Urine Nitrate Urine Bilirubin Urine Urobilinogen Urine Leukocytes Urine RBC Urine WBC Amorphous Crystals Ur Culture Indicated? 07/14/17 04:54 WBC 7.8 D RBC 2.87 L Hgb 8.5 L Hct 25.6 L MCV 89.2 MCH 30 MCHC 33.2 RDW 14.0 Plt Count 194 MPV 9.5 L Neut % (Auto) 83.2 H Lymph % (Auto) 9.0 L [place] % (Auto) 5.8 Eos % (Auto) 1.5 Baso % (Auto) 0.1 Neut # (Auto) 6.5 Lymph # (Auto) 0.7 L [place] # (Auto) 0.5 Eos # (Auto) 0.1 Baso # (Auto) 0.0 Total Counted 100 Immature Gran % 0.4 Nucleated RBC % 0.0 Immature Gran # 0.03 Segmented Neutrophils 81 Band Neutrophils 4 Lymphocytes 8 L Monocytes 6 Eosinophils 1 Nucleated RBCs # 0.00 Platelet Estimate Adequate Immature Plt Fraction 0.0 Hypochromasia Slight Microcytosis 1+ Sodium Potassium Chloride Carbon Dioxide Anion Gap BUN Creatinine GFR Calculation BUN/Creatinine Ratio Glucose POC Glucose Calculated Osmolality Calcium Urine Color Urine Appearance Urine pH Ur Specific [place] Urine Protein Urine Glucose (UA) Urine Ketones Urine Blood Urine Nitrate Urine Bilirubin Urine Urobilinogen Urine Leukocytes Urine RBC Urine WBC Amorphous Crystals Ur Culture Indicated? Quality Measures - VTE Contraindication to Pharmacological VTE Prophylaxis: High Risk of Bleeding
--- NOTE | 2017-07-14 07:38 | EKG Report ---
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
[2017-07-14] MEDS: INSULIN REGULAR 100 UNIT/ML SUBCUT SCH ×4 (08:05→20:52)
[2017-07-14] MEDS: SODIUM CHLORIDE 0.9% 1,000 ML IV SCH ×3 (08:21→23:30)
--- NOTE | 2017-07-14 08:32 | Nephrology Progress Note ---
Nephrology - PN: Subj Interval history: Mr. Osborne is seen in follow-up of his acute renal failure. He had 100 cc of contrast earlier in the week for CT angiogram and likely is the source of his acute renal failure. He is making urine and is not volume overloaded his blood pressures 130 140 systolic. His chest is clear and is not short of breath. He does not have any significant edema. Creatinines up to 3.6, electrolytes are normal. Will continue to follow and hopefully he will recover his renal function prior to needing dialysis support. Exam (PN)-Nephrology - Vital Signs Vital signs: Period Temp Pulse Resp BP Sys/[place] Pulse Ox Last 24 Hr 97.9 F-99.2 F 65-84 12-46 97-170/43-80 96-100 - Lab 07/14/17 04:54 07/14/17 04:54 Most recent lab results Calcium 7.2 MG/DL (8.5-10.1) L 07/14/17 04:54 Magnesium 1.5 MG/DL (1.8-2.4) L 07/13/17 03:56 Assessment and Plan (1) CKD stage 2 due to type 2 diabetes mellitus Status: Chronic Assessment and plan: Long-standing diabetes mellitus Current Visit: Yes (2) Diabetes mellitus Status: Chronic Current Visit: Yes Qualifiers: Diabetes mellitus type: type 2 Diabetes mellitus complication status: with circulatory complication 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 He has an abnormal vascular study from [facility] that warrants at least a CTA and possibly formal arteriogram, but we may be looking at AKA. Status: Chronic Current Visit: Yes
[2017-07-14] MEDS: FUROSEMIDE 40 MG TABLET PO SCH (09:01)
[2017-07-14] MEDS: ACETYLCYSTEINE 600 MG CAPSULE PO SCH (09:02)
[2017-07-14] MEDS: PANTOPRAZOLE 40 MG TABLET PO SCH (09:04)
[2017-07-14] MEDS: PENTOXIFYLLINE 400 MG TABLET PO SCH ×3 (09:04→20:36)
[2017-07-14] MEDS: DOCUSATE SODIUM 100 MG CAPSULE PO SCH ×2 (09:04→20:36)
[2017-07-14] MEDS: CARVEDILOL 3.125 MG TABLET PO SCH ×2 (09:05→20:37)
[2017-07-14] MEDS: ASPIRIN CHEW 81 MG TABLET PO SCH (09:05)
--- NOTE | 2017-07-14 09:16 | General Surgery Progress Note ---
Assessment and Plan (1) Peripheral arterial disease Problem details: Peripheral arterial disease of the right lower extremity with large ulcerations and significant rest pain. He has an abnormal vascular study from [facility] that warrants at least a CTA and possibly formal arteriogram, but we may be looking at AKA. Status: Chronic Assessment and plan: 07/07/17 Admit for baseline labs and, depending on his creatinine, we will plan for CTA vs. formal arteriogram to see if any interventional procedures could be of benefit. Certainly his wounds are very advanced, and will require a prolonged period of care for healing, even with reconstituted blood flow. He and his family are aware of this. 07/08/2017. Peripheral arterial disease with ischemic right lower extremity right lower extremity. His creatinine is elevated, unfortunately limiting her ability to proceed with investigation with CTA. We have consulted nephrology, and are administering gentle IV fluids and Mucomyst. We will go ahead and schedule this for Tuesday and hopefully will have a better idea of the extensive nature of his disease. His family was not present during this visit, however no surgery can be planned at this point until we are better able to determine how extensive his occlusion may be. 07/12/17 Ischemic ulceration of the right lower leg with what appears to be severe rest pain. Dr Peacock's evaluation has been noted and apparently the best option for this gentleman is AKA. I reiterated this with the family and Mr Osborne, but Dr Fernandez will be by to discuss the particulars and their wishes/ consent to amputate. Certainly his rest pain seems to be very pronounced and significant, and he would benefit from amputation in that, once healed, it would offer pain relief and allow him to rest and eat normally again. 07/14/2017 Stable postop right AKA. We will plan to move him to the floor and encourage good nutrition. Hopefully he will do better in the presence of his family. Appreciate 's Gilma & Bogdan's help-we will be judicious with his volume replacement and watch his creatinine and urinary output for now; he may need to restart his Lasix. We will plan to change his dressing tomorrow at the bedside. Current Visit: Yes (2) Diabetes mellitus Status: Chronic Assessment and plan: Type 2, DM. We will monitor, place on sliding scale insulin, and have Hospital Medicine follow closely with us. We will need to watch his creatinine closely as well, considering that he will likely be placed on antibiotics which could potentially be nephrotoxic. 07/08/2017. Type 2 diabetes. Hospital medicine is following Current Visit: Yes Qualifiers: Diabetes mellitus type: type 2 Diabetes mellitus complication status: with circulatory complication Diabetes mellitus senior living insulin use: without superintendent container terminal use (3) Ischemic cardiomyopathy Status: Chronic Assessment and plan: History of ischemic cardiac disease. Presently the patient is asymptomatic but appears to be extremely debilitated due to this and his other medical comorbidities. Dr Nelson has followed in the past. We will monitor his labs and fluid intake and get cardiac consult. 07/08/2017. Ischemic cardiomyopathy with ICD in place. He is being followed by Vianca NEVES and . An echocardiogram and EKG have been performed and his medications have been adjusted. We appreciate them following along with this during the perioperative period. Current Visit: Yes Subjective Patient reports: Present: still having pain (He says his pain is manageable at this time; he was much more comfortable overnight however.). Absent: tolerating a regular diet (Patient complains of anorexia.), nausea, vomiting, shortness of breath Exam - Constitutional Vitals: Period Temp Pulse Resp BP Sys/Vallejo Pulse Ox Last 24 Hr 97.9 F-99.2 F 65-84 12-46 97-170/43-80 96-100 General appearance: no acute distress, other (He is awake, alert, and oriented. He is cooperative and talkative but says he is simply not hungry. He says his pain is not as bad as yesterday.) - Respiratory Respiratory exam: Absent: accessory muscle use, rales, wheezes - Cardiovascular Cardiovascular exam: Present: other (Regularly irregular without murmur or rub.) - GI/Abdominal GI/Abdominal exam: Present: hypoactive bowel sounds, soft. Absent: distended - Extremities Exam Extremities exam: Present: other (Right AKA dressing is in place with scant JEANIE drainage; approximately 10 mL in the bulb and bloody. There is no strikethrough on the dressing.) - Neurological Exam Neurological exam: Present: alert, oriented X3 Results - Labs CBC & BMP: 07/14/17 04:54 07/14/17 04:54 Lab Results: I have reviewed the past 24 hour labs (Labs noted. H&H is 8.5/ 25.6 at this time. His creatinine has jumped slightly and his urinary output is slightly low, about 10-15 mL/h. Fluid rate is 75 mL/h, and we want to carefully monitor this to avoid volume overload.) Quality Measures - VTE Contraindication to Pharmacological VTE Prophylaxis: High Risk of Bleeding
[2017-07-14] MEDS: MUPIROCIN 2% OINT 22 GM TUBE TOP SCH (10:52)
[2017-07-14] MEDS: ENOXAPARIN 30 MG/0.3 ML SYRINGE SUBCUT SCH (13:31)
--- NOTE | 2017-07-14 15:12 | Anesthesia Post-Op ---
Anesthesia Post OP - Post Ansesthetic Evaluation Patient seen in post op: Yes Resp: within normal limits CV: within normal limits Mental: within normal limits Temp: within normal limits Pymm-Gm-Rblhowdgd: within normal limits Nausea and Vomiting: within normal limits Pain: within normal limits
[2017-07-14] MEDS: LEVOFLOXACIN INJ 250 MG in PREMIX 1 EACH IV SCH (15:22)
[2017-07-14] MEDS ORDERED: DEXTROSE 50% 25 GM/50 ML SYRINGE IV PRN (16:26)
--- NOTE | 2017-07-14 16:27 | Hospitalist Progress Note ---
Assessment and Plan (1) S/P AKA (above knee amputation) Status: Acute Assessment and plan: Wound culture growing Morganella and pantoea changed to cefepime Current Visit: Yes (2) Acute on chronic renal failure Status: Acute Assessment and plan: worsening renal function due to hypotension during surgery and mild dehydration. Hold Lasix gentle rehydration Dr. Mcfadden following. Current Visit: Yes (3) Chronic combined systolic and diastolic CHF (congestive heart failure) Status: Acute Assessment and plan: Echocardiogram shows an EF of 30% and diastolic dysfunction. Patient is mildly dehydrated hold Lasix at this time. Current Visit: Yes (4) Diabetes mellitus Status: Chronic Assessment and plan: Patient on eating well blood sugars are mildly elevated continue insulin sliding scale. Would not restart Amaryl with the worsening renal function at this time. Current Visit: Yes Qualifiers: Diabetes mellitus type: type 2 Diabetes mellitus complication status: with circulatory complication Diabetes mellitus care home insulin use: without long term care social worker use (5) Hypertension Status: Chronic Assessment and plan: Controlled Current Visit: Yes Hospitalist: Subjective Interval history: Patient appeared stable overnight and was moved out of the ICU back to third floor. Blood sugars 83-176 Exam - Constitutional Vitals: Period Temp Pulse Resp BP Sys/Vallejo Pulse Ox Last 24 Hr 97.2 F-99.2 F 64-80 12-32 124-160/53-74 96-100 Exam: Heart Rate-[RRR] Lungs-[CTAB] GI-[+bs soft, NT] Ext-right stump wrapped Neuro patient rather lethargic psych [depressed mood and flat affect] General [no acute distress] Results - Labs CBC & BMP: 07/14/17 04:54 07/14/17 04:54 Lab Results: I have reviewed the past 24 hour labs Labs: Wound culture growing Morganella and pantoea agglomerans - Diagnostic Findings Procedure: Ultrasound: report reviewed by me (EF 30% with diastolic dysfunction and PA P of 19) Quality Measures - VTE Contraindication to Pharmacological VTE Prophylaxis: High Risk of Bleeding
[2017-07-14] MEDS: CEFEPIME 1,000 MG in SODIUM CHLORIDE 0.9% 100 ML IV SCH (18:18)
--- NOTE | 2017-07-14 19:21 | Pathology Report from [facility] ---
[facility] [id number] PATIENT NAME : Sourav Osborne ORDERING DR : FLORENCE SHIPLEY MD CLINICAL HX: Ischemic RT lower leg, PAD RT leg w/ulcerations & significant rest pain POST-OP DX: Same SPECIMEN INFO: RT AKA GROSS DESCRIPTION: Received fresh labeled with the patients name Sourav OSBORNE and is a 55.0 cm right leg above the knee amputation. The skin is light vega and hairless with gangrenous ulcerations noted involving the posterior lower leg as well as the lateral proximal foot. Atherosclerotic changes are identified. Eye Clinic Manager sections submitted in one cassette. DIAGNOSIS FOR Sourav OSBORNE: RIGHT [id number] AMPUTATION: Gangrene with severe atherosclerosis. COLLECTED DATE: 07/13/2017 [facility] [place] DATE: 07/14/2017 ELECTRONICALLY SIGNED BY: Yvonne Oakley M.D. 07/14/2017 - 14:43:22 MTDD
[2017-07-14] MEDS: SIMVASTATIN 20 MG TABLET PO SCH (20:37)
[2017-07-15] MEDS: SODIUM CHLORIDE 0.9% 1,000 ML IV SCH ×5 (05:36→17:34)
[2017-07-15 05:46] LABS: Basophils % 0.1 % (0.0-0.8); Eosinophils # 0.2 10*3/uL (0.0-0.87); Eosinophils % 2.3 % (0.00-10.9); Hematocrit 24.4 VOL% (42.0-52.0); Hemoglobin 8.1 GM/DL (14.0-18.0); Immature Granulocytes % 0.8 %; Immature Granulocytes Absolute 0.06 #; Lymphocytes # 0.7 10*3/uL (1.4-4.0); Lymphocytes % 9.8 % (21.2-54.2); Mean Corpuscular HGB Conc 33.2 GM/DL (32-36); Mean Corpuscular Hemoglobin 30 PG (27-34); Mean Corpuscular Volume 88.7 FL (87-102); Mean Platelet Volume 9.1 FL (9.6-12.0); Monocytes # 0.5 10*3/uL (0.11-0.8); Monocytes % 7.5 % (1.7-12.7); Neutrophils # 5.8 10*3/uL (1.4-7.4); Neutrophils % 79.5 % (38.7-73.9); Platelet Count 187 T/CUMM (130-400); Red Blood Count 2.75 MC/CUMM (3.8-5.5); Red Cell Distribution Width 14.6 % (9.3-17.3); White Blood Count 7.2 T/CUMM (4-12)
[2017-07-15 06:11] LABS: Calcium 7.7 MG/DL (8.5-10.1); Osmolality,Calculated 300.7 MOS/KG (273-304); Potassium 4.1 MMOL/L (3.5-5.1)
[2017-07-15] MEDS: INSULIN REGULAR 100 UNIT/ML SUBCUT SCH ×4 (07:37→21:22)
--- NOTE | 2017-07-15 09:10 | General Surgery Progress Note ---
Assessment and Plan (1) Peripheral arterial disease Problem details: Peripheral arterial disease of the right lower extremity with large ulcerations and significant rest pain. He has an abnormal vascular study from [facility] that warrants at least a CTA and possibly formal arteriogram, but we may be looking at AKA. Status: Chronic Assessment and plan: 07/07/17 Admit for baseline labs and, depending on his creatinine, we will plan for CTA vs. formal arteriogram to see if any interventional procedures could be of benefit. Certainly his wounds are very advanced, and will require a prolonged period of care for healing, even with reconstituted blood flow. He and his family are aware of this. 07/08/2017. Peripheral arterial disease with ischemic right lower extremity right lower extremity. His creatinine is elevated, unfortunately limiting her ability to proceed with investigation with CTA. We have consulted nephrology, and are administering gentle IV fluids and Mucomyst. We will go ahead and schedule this for Tuesday and hopefully will have a better idea of the extensive nature of his disease. His family was not present during this visit, however no surgery can be planned at this point until we are better able to determine how extensive his occlusion may be. 07/12/17 Ischemic ulceration of the right lower leg with what appears to be severe rest pain. Dr Peacock's evaluation has been noted and apparently the best option for this gentleman is AKA. I reiterated this with the family and Mr Osborne, but Dr Fernandez will be by to discuss the particulars and their wishes/ consent to amputate. Certainly his rest pain seems to be very pronounced and significant, and he would benefit from amputation in that, once healed, it would offer pain relief and allow him to rest and eat normally again. 07/14/2017 Stable postop right AKA. We will plan to move him to the floor and encourage good nutrition. Hopefully he will do better in the presence of his family. Appreciate 's Gilma & Bogdan's help-we will be judicious with his volume replacement and watch his creatinine and urinary output for now; he may need to restart his Lasix. We will plan to change his dressing tomorrow at the bedside. 07/15/2017. Patient is progressing slowly post right AKA. His stump is stable without ischemic change. The drain has been removed and wound redressed; we will plan to leave this in place throughout the holiday weekend unless he has problems. He is complaining of a significant amount of pain, which is not unexpected, but does seem to be stabilizing at this point. Discussed his ATN with Dr. Mcfadden, who favors bumping his Lasix and de crease IV fluids. We will continue to watch his urinary output and labs. Current Visit: Yes (2) Diabetes mellitus Status: Chronic Assessment and plan: Type 2, DM. We will monitor, place on sliding scale insulin, and have Hospital Medicine follow closely with us. We will need to watch his creatinine closely as well, considering that he will likely be placed on antibiotics which could potentially be nephrotoxic. 07/08/2017. Type 2 diabetes. Hospital medicine is following Current Visit: Yes Qualifiers: Diabetes mellitus type: type 2 Diabetes mellitus complication status: with circulatory complication Diabetes mellitus long chain beamer insulin use: without correction use (3) Ischemic cardiomyopathy Status: Chronic Assessment and plan: History of ischemic cardiac disease. Presently the patient is asymptomatic but appears to be extremely debilitated due to this and his other medical comorbidities. Dr Nelson has followed in the past. We will monitor his labs and fluid intake and get cardiac consult. 07/08/2017. Ischemic cardiomyopathy with ICD in place. He is being followed by Vianca NEVES and . An echocardiogram and EKG have been performed and his medications have been adjusted. We appreciate them following along with this during the perioperative period. Current Visit: Yes Subjective Patient reports: Present: still having pain, tolerating liquids well, other ( Appetite is poor). Absent: nausea, vomiting, shortness of breath Exam - Constitutional Vitals: Period Temp Pulse Resp BP Sys/Vallejo Pulse Ox Last 24 Hr 97.2 F-98.0 F 65-78 15-19 117-158/56-69 96-100 General appearance: no acute distress - Extremities Exam Extremities exam: Present: other (Right AKA stump is clean and dry; there is scant, less than 5 mL bloody drainage in the JEANIE bulb. This was discontinued. Suture line is well approximated without drainage or unusual ecchymosis. There is no erythema. There is no ischemic change of the skin flap. No unusual swelling. He is appropriately tender for postop day 2.) Results - Labs CBC & BMP: 07/15/17 05:30 07/15/17 05:30 Lab Results: I have reviewed the past 24 hour labs (Labs noted; his creatinine continues to be 3.6. I have discussed this with Dr. Lio Mcfadden, who is continuing to follow and feels this is ATN related to his previous contrast.) Quality Measures - VTE Contraindication to Pharmacological VTE Prophylaxis: High Risk of Bleeding
[2017-07-15] MEDS ORDERED: FUROSEMIDE 40 MG/4 ML VIAL IV ONE (09:19)
--- NOTE | 2017-07-15 09:22 | Nephrology Progress Note ---
Nephrology - PN: Subj Interval history: Mr. Osborne is seen in follow-up of his acute superimposed on chronic renal failure. The acute acute component is due to contrast administration on Tuesday. His creatinine appears to peak yesterday it was 3.6 and today it remains at 3.6. Baseline is 1.4. He has begun to develop some signs of volume overload with some 1+ edema and also evidence of pleural effusion on today's chest x-ray he is not short of breath. We are going to go ahead and decrease his IV fluids from 75 cc an hour down to 40 and give 80 mg Lasix IV once today and resume his 40 mg Lasix daily tomorrow. He will continue to have his labs monitored and will continue to pay attention to volume. He is fragile but does seem to be trending toward volume overload and will address that with the above measures but he certainly easily could become volume depleted. Exam (PN)-Nephrology - Vital Signs Vital signs: Period Temp Pulse Resp BP Sys/Vallejo Pulse Ox Last 24 Hr 97.2 F-98.0 F 65-78 15-18 117-149/56-69 96-100 - Lab 07/15/17 05:30 07/15/17 05:30 Most recent lab results Calcium 7.7 MG/DL (8.5-10.1) L 07/15/17 05:30 Magnesium 1.5 MG/DL (1.8-2.4) L 07/13/17 03:56 Assessment and Plan (1) CKD stage 2 due to type 2 diabetes mellitus Status: Chronic Assessment and plan: Long-standing diabetes mellitus Current Visit: Yes (2) Diabetes mellitus Status: Chronic Current Visit: Yes Qualifiers: Diabetes mellitus type: type 2 Diabetes mellitus complication status: with circulatory complication Diabetes mellitus termite helper insulin use: without termite helper use (3) Peripheral arterial disease Problem details: Peripheral arterial disease of the right lower extremity with large ulcerations and significant rest pain. He has an abnormal vascular study from [facility] that warrants at least a CTA and possibly formal arteriogram, but we may be looking at AKA. Status: Chronic Current Visit: Yes
--- NOTE | 2017-07-15 09:26 | XRay Report ---
History: Acute renal failure Date: 07/15/2017 Study: Chest x-ray AP portable Comparison exam: July 12, 2017 There is stable cardiomegaly. The mediastinal contours are unchanged in this patient status post prior median sternotomy. The pulmonary vasculature is not engorged. There is increased strandy and hazy atelectatic change in the lung bases compared to the previous study. A left subclavian multiple lead pacemaker/defibrillator device is unchanged. Osseous structures are similar. Impression: Increased bibasilar atelectatic change compared to the previous study PROCEDURE INTERPRETED AT [facility] DEPARTMENT OF RADIOLOGY Final Report Signed by: Dr. Sylvie Aquino
[2017-07-15] MEDS: ASPIRIN CHEW 81 MG TABLET PO SCH (09:40)
[2017-07-15] MEDS: DOCUSATE SODIUM 100 MG CAPSULE PO SCH ×2 (09:40→21:23)
[2017-07-15] MEDS: PENTOXIFYLLINE 400 MG TABLET PO SCH ×3 (09:40→21:23)
[2017-07-15] MEDS: CARVEDILOL 3.125 MG TABLET PO SCH ×2 (09:40→21:23)
[2017-07-15] MEDS: PANTOPRAZOLE 40 MG TABLET PO SCH (09:40)
--- NOTE | 2017-07-15 11:18 | Hospitalist Progress Note ---
Assessment and Plan (1) Diabetes mellitus Status: Chronic Assessment and plan: Continue Accu-Cheks and sliding scale insulin. Current Visit: Yes Qualifiers: Diabetes mellitus type: type 2 Diabetes mellitus complication status: with circulatory complication Diabetes mellitus ferry terminal supervisor insulin use: without ferry terminal supervisor use (2) Ischemic cardiomyopathy Status: Chronic Assessment and plan: Followed by cardiology. Consult reviewed. Current Visit: Yes (3) Coronary artery disease Status: Chronic Current Visit: Yes (4) Peripheral arterial disease Problem details: Peripheral arterial disease of the right lower extremity with large ulcerations and significant rest pain. He has an abnormal vascular study from [facility] that warrants at least a CTA and possibly formal arteriogram, but we may be looking at AKA. Status: Chronic Assessment and plan: CTA and vascular surgery consult reviewed. Recommendations for right AKA made. 07/13/17: Postop day 0 status post right AKA. Current Visit: Yes (5) Leg pain Status: Resolved Current Visit: Yes Qualifiers: Laterality: right Qualified Code(s): M79.604 - Pain in right leg (6) ICD (implantable cardioverter-defibrillator) in place Status: Chronic Current Visit: Yes (7) CKD stage 2 due to type 2 diabetes mellitus Status: Chronic Current Visit: Yes (8) Acute kidney injury superimposed on chronic kidney disease Status: Acute Assessment and plan: The patient has had an acute worsening of his chronic kidney disease secondary to IV contrast for CTA on Tuesday followed by some periods of relative hypotension. Creatinine is currently 3.6 and is being followed by nephrology. Current Visit: Yes Hospitalist: Subjective Interval history: Patient seen and examined. at the bedside. No acute events overnight. Reports improved pain control after right AKA. Exam - Constitutional Vitals: Period Temp Pulse Resp BP Sys/Vallejo Pulse Ox Last 24 Hr 97.2 F-98.0 F 65-78 18-18 117-149/56-69 97-100 Exam: Constitutional System: No distress. No tremulousness. Resting comfortably. Head: Normocephalic, atraumatic. Ears, Nose and Throat System: No pain or tenderness. No epistaxis or discharge Eyes System: Pupils equal, round, and reactive. Neck: Supple, without adenopathy, No jugular venous distention. Respiratory System: Chest clear to auscultation. Cardiovascular System: Heart with regular rate and rhythm. No murmur. GI System: Abdomen soft, nontender. Normo active bowel sounds present. Musculoskeletal System: limbs with no pedal edema. A left AKA is noted. Right AKA postop day 2; wrapped with clean dry and intact dressing Neurological System: No discernable sensory deficit. No aphasia Psychiatric System: Conversation is rational Results - Labs CBC & BMP: 07/15/17 05:30 07/15/17 05:30 Lab Results: I have reviewed the past 24 hour labs Quality Measures - VTE Contraindication to Pharmacological VTE Prophylaxis: High Risk of Bleeding
--- NOTE | 2017-07-15 14:11 | Cardiology Progress Note ---
Adam Rider April, RN, am scribing for, and in the presence of, Buddy Dillard MD 14:10. Assessment and Plan (1) Leg pain Status: Resolved Current Visit: Yes Qualifiers: Laterality: right Qualified Code(s): M79.604 - Pain in right leg (2) Preoperative cardiovascular examination Status: Resolved Current Visit: Yes (3) Dyslipidemia Status: Chronic Current Visit: Yes (4) ICD (implantable cardioverter-defibrillator) in place Status: Chronic Current Visit: Yes (5) Language barrier Status: Chronic Current Visit: Yes (6) Peripheral arterial disease Problem details: Peripheral arterial disease of the right lower extremity with large ulcerations and significant rest pain. He has an abnormal vascular study from [facility] that warrants at least a CTA and possibly formal arteriogram, but we may be looking at AKA. Status: Chronic Current Visit: Yes (7) Coronary artery disease Status: Chronic Current Visit: Yes (8) Diabetes mellitus Status: Chronic Current Visit: Yes Qualifiers: Diabetes mellitus type: type 2 Diabetes mellitus complication status: with circulatory complication Diabetes mellitus mcc insulin use: without mcc use (9) Hx of CABG Status: Chronic Current Visit: Yes (10) Hypertension Status: Chronic Current Visit: Yes (11) Ischemic cardiomyopathy Status: Chronic Current Visit: Yes (12) S/P AKA (above knee amputation) Status: Acute Current Visit: Yes Qualifiers: Laterality: right Qualified Code(s): Z89.611 - Acquired absence of right leg above knee Cardiology - PN: Subj Interval history: MARKETING CONTENT SPECIALIST: DR. NELSON Summary: Mr. Osborne, 82ChM, last seen in cardiology clinic November 24, 2015. Risk factors include: age, known coronary artery disease S/P CABG December 12, 1995 (GALVEZ -LAD, SVG - Cx, SVG - OM), hypertension, dyslipidemia, diabetes, PVD , sedentary lifestyle, family history premature coronary artery disease, noncompliance. History of ischemic cardiomyopathy S/P [employer]onic Bi-V ICD implantation February 19, 2014. Echocardiogram June 01, 2015: EF 15%, global hypokinesis with grade 3 diastolic dysfunction, mild concentric LVH, RVSP 44 mmHg + RAP. Last heart catheterization: July 19, 2013 with the following impression noted: PCI to the left main coronary artery with DENA, PCI to the distal RCA with DENA, PCI with DENA to the proximal portion distal RCA stent overlapping the distal stent. Patient was admitted July 07, [address] Fernandez for further workup of the right lower extremity ulcerations and significant wrist pain. He has an abnormal vascular study from [facility] which warrants a CTA and possibly formal arteriogram. He has not followed up with Dr. Nelson since November 2015. Pacemaker was interrogated by [employer] rep. Reportedly checked fine with no episodes of atrial fibrillation. Was noted if he requires surgery, magnet will need to be placed to pacemaker. Echocardiogram done this admission with EF 30%. He underwent right AKA July [address] Fernandez. July 15, 2017: Mr. Osborne is day 2 status post right AKA. Stump is dressed. He is resting in bed without complaint. He says he does feel better today. His weights are up from admission. He is scheduled to receive Lasix 80 mg IV 1 dose today and his p.o. Lasix will be restarted tomorrow. Today's lab data: WBC 7.2 hemoglobin 8.1 hematocrit 24.4 Sodium 1.5 potassium 4.1 chloride 114 CO2 20 BUN 47 creatinine 3.6 Glucose 118 Cardiology addendum Postop day #2 right leg AKA. Acute renal failure superimposed on chronic. Creatinine today 3.60 and BUN 47 potassium 4.1 Status post three-vessel CABG November 1995 with GALVEZ graft to LAD, vein graft OM branch and vein graft to circumflex Status post left main stent and distal RCA stent July 19, 2013 Status post left leg AKA Status post ICD PVD Chest x-ray shows cardiomegaly with atelectasis in both bases and a small effusions O2 sat 97% room air. Blood pressure 140/66 Plan BMP in a.m. Fluids have been decreased Exam (Progress Note) - Constitutional Vitals: Period Temp Pulse Resp BP Sys/Vallejo Pulse Ox Last 24 Hr 97.2 F-98.0 F 65-78 15-18 117-149/56-69 96-100 Exam: General: Appears well with no apparent distress. Pleasant and cooperative. Appears comfortable. HEENT: Bilateral arcus, poor dentition, normocephalic, atraumatic. Mucous membranes moist. No jaundice noted. Conjunctiva moist and clear, sclerae anicteric Neck: No JVD/HJR, no thyromegaly or lymphadenopathy noted. No carotid bruit appreciated Cardiac: Regular rate and rhythm. No obvious murmur rub or gallop. Left precordial area with ICD noted. Lungs: Clear to auscultation without accessory muscle use to assist the respiratory pattern. Not requiring oxygen Abdomen: Soft, bowel sounds normoactive. Nontender and nondistended. No abdominal bruit or thrill noted. No masses noted. Musculoskeletal: No fluid collection. Decreased range of motion is noted, particularly the right lower extremity. Extremities: No clubbing, cyanosis noted. No edema noted. Upper extremity pulses 2+. Left [id number] amputation. Right AKA, stump is dressed. Skin: Midsternal incision with dime size lesion noted. No skin breakdown appreciated. Cannot assess right lower extremity as it is wrapped. Neuro: Awake, alert and cooperative. No essential tremor is appreciated. Result/EKG - Labs CBC & BMP: 07/15/17 05:30 07/15/17 05:30 Lab Results: I have reviewed the past 24 hour labs Labs: Laboratory Results - last 24 hr 07/14/17 07/14/17 07/14/17 11:36 15:23 20:24 WBC RBC Hgb Hct MCV MCH MCHC RDW Plt Count MPV Neut % (Auto) Lymph % (Auto) [place] % (Auto) Eos % (Auto) Baso % (Auto) Neut # (Auto) Lymph # (Auto) [place] # (Auto) Eos # (Auto) Baso # (Auto) Immature Gran % Nucleated RBC % Immature Gran # Nucleated RBCs # Immature Plt Fraction Sodium Potassium Chloride Carbon Dioxide Anion Gap BUN Creatinine GFR Calculation BUN/Creatinine Ratio Glucose POC Glucose 167 H 176 H 167 H Calculated Osmolality Calcium 07/15/17 07/15/17 07/15/17 05:30 05:30 07:15 WBC 7.2 RBC 2.75 L Hgb 8.1 L Hct 24.4 L MCV 88.7 MCH 30 MCHC 33.2 RDW 14.6 Plt Count 187 MPV 9.1 L Neut % (Auto) 79.5 H Lymph % (Auto) 9.8 L [place] % (Auto) 7.5 Eos % (Auto) 2.3 Baso % (Auto) 0.1 Neut # (Auto) 5.8 Lymph # (Auto) 0.7 L [place] # (Auto) 0.5 Eos # (Auto) 0.2 Baso # (Auto) 0.0 Immature Gran % 0.8 Nucleated RBC % 0.0 Immature Gran # 0.06 Nucleated RBCs # 0.00 Immature Plt Fraction 0.0 Sodium 145 Potassium 4.1 Chloride 114 H Carbon Dioxide 20 L Anion Gap 15.1 H BUN 47 H Creatinine 3.60 H GFR Calculation 15 BUN/Creatinine Ratio 13.00 Glucose 118 H POC Glucose 138 H Calculated Osmolality 300.7 Calcium 7.7 L Quality Measures - VTE Contraindication to Pharmacological VTE Prophylaxis: High Risk of Bleeding IGilma Thomas, MD, personally performed the services described in this documentation, ascribed by Caterina Medina RN in my presence, and it is both accurate and complete 410 .
[2017-07-15] MEDS: CEFEPIME 1,000 MG in SODIUM CHLORIDE 0.9% 100 ML IV SCH (17:29)
[2017-07-15] MEDS: SIMVASTATIN 20 MG TABLET PO SCH (21:23)
[2017-07-16 04:43] LABS: Basophils % 0.2 % (0.0-0.8); Eosinophils # 0.3 10*3/uL (0.0-0.87); Eosinophils % 3.8 % (0.00-10.9); Hemoglobin 8.3 GM/DL (14.0-18.0); Immature Granulocytes % 0.6 %; Immature Granulocytes Absolute 0.04 #; Lymphocytes # 0.7 10*3/uL (1.4-4.0); Lymphocytes % 10.2 % (21.2-54.2); Mean Corpuscular HGB Conc 33.2 GM/DL (32-36); Mean Corpuscular Hemoglobin 30 PG (27-34); Mean Platelet Volume 9.7 FL (9.6-12.0); Monocytes # 0.5 10*3/uL (0.11-0.8); Monocytes % 7.5 % (1.7-12.7); Neutrophils # 5.1 10*3/uL (1.4-7.4); Neutrophils % 77.7 % (38.7-73.9); Platelet Count 225 T/CUMM (130-400); Red Blood Count 2.81 MC/CUMM (3.8-5.5); Red Cell Distribution Width 14.7 % (9.3-17.3); White Blood Count 6.6 T/CUMM (4-12)
[2017-07-16 05:14] LABS: Calcium 7.9 MG/DL (8.5-10.1); Osmolality,Calculated 301.6 MOS/KG (273-304); Potassium 4.1 MMOL/L (3.5-5.1)
--- NOTE | 2017-07-16 07:45 | Hospitalist Progress Note ---
Assessment and Plan (1) Acute kidney injury superimposed on chronic kidney disease Status: Acute Assessment and plan: The patient has chronic kidney disease stage III and now superimposed acute kidney injury. Creatinine is stable at 3.6. Blood glucose is well controlled on present into diabetes regimen. Current Visit: Yes (2) Chronic combined systolic and diastolic CHF (congestive heart failure) Status: Acute Current Visit: Yes (3) S/P AKA (above knee amputation) Status: Acute Current Visit: Yes Qualifiers: Laterality: right Qualified Code(s): Z89.611 - Acquired absence of right leg above knee (4) CKD stage 2 due to type 2 diabetes mellitus Status: Chronic Current Visit: Yes Hospitalist: Subjective Interval history: Mr. Osborne is resting quietly in bed this morning. He awakens easily. The patient is status post right [id number] amputation. We are consulted concerning diabetes mellitus type 2 and chronic kidney disease. The patient's renal function is stable and blood glucose is well controlled on present regimen. The patient did not report any shortness of breath or angina last night. Exam - Constitutional Vitals: Period Temp Pulse Resp BP Sys/Vallejo Pulse Ox Last 24 Hr 97.3 F-98.3 F 65-75 16-20 134-155/54-76 97-98 General appearance: mild distress - Respiratory Respiratory exam: Present: clear to auscultation bilaterally - Cardiovascular Cardiovascular exam: Present: regular rate and rhythm - GI/Abdominal GI/Abdominal exam: Present: normal bowel sounds Results - Labs CBC & BMP: 07/16/17 03:14 07/16/17 03:14 Lab Results: I have reviewed the past 24 hour labs Quality Measures - VTE Contraindication to Pharmacological VTE Prophylaxis: High Risk of Bleeding
[2017-07-16] MEDS: INSULIN REGULAR 100 UNIT/ML SUBCUT SCH ×4 (07:51→23:07)
[2017-07-16] MEDS: PANTOPRAZOLE 40 MG TABLET PO SCH (08:46)
[2017-07-16] MEDS: DOCUSATE SODIUM 100 MG CAPSULE PO SCH ×2 (08:46→21:10)
[2017-07-16] MEDS: PENTOXIFYLLINE 400 MG TABLET PO SCH ×3 (08:46→21:10)
[2017-07-16] MEDS: FUROSEMIDE 40 MG TABLET PO SCH (08:46)
[2017-07-16] MEDS: CARVEDILOL 3.125 MG TABLET PO SCH ×2 (08:47→21:10)
[2017-07-16] MEDS: ASPIRIN CHEW 81 MG TABLET PO SCH (08:47)
--- NOTE | 2017-07-16 10:45 | Cardiology Progress Note ---
Assessment and Plan (1) Leg pain Status: Resolved Current Visit: Yes Qualifiers: Laterality: right Qualified Code(s): M79.604 - Pain in right leg (2) Preoperative cardiovascular examination Status: Resolved Current Visit: Yes (3) Dyslipidemia Status: Chronic Current Visit: Yes (4) ICD (implantable cardioverter-defibrillator) in place Status: Chronic Current Visit: Yes (5) Language barrier Status: Chronic Current Visit: Yes (6) Peripheral arterial disease Problem details: Peripheral arterial disease of the right lower extremity with large ulcerations and significant rest pain. He has an abnormal vascular study from [facility] that warrants at least a CTA and possibly formal arteriogram, but we may be looking at AKA. 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 Blood pressure 150/60 Weight today up a little 69.4 kg. Weight was 67.16 on July 11 O2 sat 97% room air Impression Postop day #2 right leg AKA Acute renal failure superimposed on chronic. Creatinine holding at 3.60 Status post three-vessel CABG November 1995 Status post left main stent and distal RCA stent July 19, 2013 Status post left leg AKA Status post ICD PVD Ischemic cardiomyopathy Plan Begin hydralazine 10 mg twice daily BMP in a.m. Exam (Progress Note) - Constitutional Vitals: Period Temp Pulse Resp BP Sys/[place] Pulse Ox Last 24 Hr 97.3 F-98.3 F 65-75 16-20 134-155/54-76 97-98 Result/EKG - Labs CBC & BMP: 07/16/17 03:14 07/16/17 03:14 Labs: Laboratory Results - last 24 hr 07/15/17 07/15/17 07/15/17 11:21 15:37 20:19 WBC RBC Hgb Hct MCV MCH MCHC RDW Plt Count MPV Neut % (Auto) Lymph % (Auto) [place] % (Auto) Eos % (Auto) Baso % (Auto) Neut # (Auto) Lymph # (Auto) [place] # (Auto) Eos # (Auto) Baso # (Auto) Immature Gran % Nucleated RBC % Immature Gran # Nucleated RBCs # Immature Plt Fraction Sodium Potassium Chloride Carbon Dioxide Anion Gap BUN Creatinine GFR Calculation BUN/Creatinine Ratio Glucose POC Glucose 144 H 203 H 162 H Calculated Osmolality Calcium 07/16/17 07/16/17 07/16/17 03:14 03:14 07:17 WBC 6.6 RBC 2.81 L Hgb 8.3 L Hct 25.0 L MCV 89.0 MCH 30 MCHC 33.2 RDW 14.7 Plt Count 225 D MPV 9.7 Neut % (Auto) 77.7 H Lymph % (Auto) 10.2 L [place] % (Auto) 7.5 Eos % (Auto) 3.8 Baso % (Auto) 0.2 Neut # (Auto) 5.1 Lymph # (Auto) 0.7 L [place] # (Auto) 0.5 Eos # (Auto) 0.3 Baso # (Auto) 0.0 Immature Gran % 0.6 Nucleated RBC % 0.0 Immature Gran # 0.04 Nucleated RBCs # 0.00 Immature Plt Fraction 0.0 Sodium 146 H Potassium 4.1 Chloride 116 H Carbon Dioxide 19 L Anion Gap 15.1 H BUN 47 H Creatinine 3.60 H GFR Calculation 15 BUN/Creatinine Ratio 13.00 Glucose 101 POC Glucose 127 H Calculated Osmolality 301.6 Calcium 7.9 L Quality Measures - VTE Contraindication to Pharmacological VTE Prophylaxis: High Risk of Bleeding
[2017-07-16] MEDS: hydrALAZINE 10 MG TABLET PO SCH ×2 (11:14→21:10)
--- NOTE | 2017-07-16 11:58 | Nephrology Progress Note ---
Nephrology - PN: Subj Interval history: Recent left AKA. No shortness of breath today. Exam (PN)-Nephrology - Vital Signs Vital signs: Period Temp Pulse Resp BP Sys/[place] Pulse Ox Last 24 Hr 97.3 F-98.3 F 65-75 16-20 134-155/54-76 97-98 Exam: Gen.: Alert and oriented x3. ENT: Pupils equal round reactive to light. EOMs intact. Mucous membranes moist. Neck: Supple. No JVD or bruit. Cardiovascular: Regular rate and rhythm. No murmur rub or gallop Lungs: Clear Abdomen: Soft. Nontender. Positive bowel sounds. No organomegaly Extremities: Bilateral AKA - Lab 07/16/17 03:14 07/16/17 03:14 Most recent lab results Calcium 7.9 MG/DL (8.5-10.1) L 07/16/17 03:14 Magnesium 1.5 MG/DL (1.8-2.4) L 07/13/17 03:56 Assessment and Plan (1) Acute on chronic renal failure Status: Acute Assessment and plan: 82-year-old man with: * CRF. Baseline creatinine 1.4 * ARF. Creatinine stable at 3.6. Volume status normal * Peripheral vascular disease. Status post left AKA. 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 He has an abnormal vascular study from [facility] that warrants at least a CTA and possibly formal arteriogram, but we may be looking at AKA. Status: Chronic Current Visit: Yes
--- NOTE | 2017-07-16 13:06 | Event Note ---
Afebrile vital signs stable. Creatinine stable at 3.6. No complaints. Right AKA dressing intact. Is clean and dry. Continue supportive care.
[2017-07-16] MEDS: CEFEPIME 1,000 MG in SODIUM CHLORIDE 0.9% 100 ML IV SCH (17:47)
[2017-07-16] MEDS: SIMVASTATIN 20 MG TABLET PO SCH (21:10)
[2017-07-16] MEDS: SODIUM CHLORIDE 0.9% 1,000 ML IV SCH (21:11)
[2017-07-17 03:39] LABS: Basophils % 0.4 % (0.0-0.8); Eosinophils # 0.2 10*3/uL (0.0-0.87); Eosinophils % 4.7 % (0.00-10.9); Hematocrit 24.2 VOL% (42.0-52.0); Immature Granulocytes % 0.8 %; Immature Granulocytes Absolute 0.04 #; Lymphocytes # 0.7 10*3/uL (1.4-4.0); Lymphocytes % 14.6 % (21.2-54.2); Mean Corpuscular HGB Conc 33.1 GM/DL (32-36); Mean Corpuscular Hemoglobin 30 PG (27-34); Mean Corpuscular Volume 89.3 FL (87-102); Mean Platelet Volume 9.6 FL (9.6-12.0); Monocytes # 0.4 10*3/uL (0.11-0.8); Monocytes % 7.7 % (1.7-12.7); Neutrophils # 3.6 10*3/uL (1.4-7.4); Neutrophils % 71.8 % (38.7-73.9); Platelet Count 225 T/CUMM (130-400); Red Blood Count 2.71 MC/CUMM (3.8-5.5); Red Cell Distribution Width 14.8 % (9.3-17.3); White Blood Count 5.1 T/CUMM (4-12)
[2017-07-17 03:59] LABS: Calcium 7.5 MG/DL (8.5-10.1); Osmolality,Calculated 299.7 MOS/KG (273-304); Potassium 3.8 MMOL/L (3.5-5.1)
[2017-07-17] MEDS: INSULIN REGULAR 100 UNIT/ML SUBCUT SCH ×4 (07:49→22:48)
[2017-07-17] MEDS: DOCUSATE SODIUM 100 MG CAPSULE PO SCH ×2 (08:42→22:47)
[2017-07-17] MEDS: CARVEDILOL 3.125 MG TABLET PO SCH ×2 (08:42→22:47)
[2017-07-17] MEDS: PENTOXIFYLLINE 400 MG TABLET PO SCH ×3 (08:42→22:47)
[2017-07-17] MEDS: hydrALAZINE 10 MG TABLET PO SCH ×2 (08:42→22:48)
[2017-07-17] MEDS: ASPIRIN CHEW 81 MG TABLET PO SCH (08:43)
[2017-07-17] MEDS: FUROSEMIDE 40 MG TABLET PO SCH (08:43)
[2017-07-17] MEDS: PANTOPRAZOLE 40 MG TABLET PO SCH (08:43)
--- NOTE | 2017-07-17 09:56 | Hospitalist Progress Note ---
Assessment and Plan (1) Type 2 diabetes mellitus Status: Chronic Assessment and plan: 1)DMT2- glucose is well controlled. continue SSI. 2)NORAH on CKD- creatinine is down to 3.0. baseline is 1.7. Current Visit: No (2) S/P AKA (above knee amputation) Status: Acute Current Visit: Yes Qualifiers: Laterality: right Qualified Code(s): Z89.611 - Acquired absence of right leg above knee (3) Acute kidney injury superimposed on chronic kidney disease Status: Acute Current Visit: Yes Hospitalist: Subjective Interval history: Mr Osborne feels ok this morning. He volunteers that breakfast was good. He denies pain or shortness of breath. Exam - Constitutional Vitals: Period Temp Pulse Resp BP Sys/[place] Pulse Ox Last 24 Hr 97.2 F-98.1 F 68-79 17-20 123-155/53-70 96-100 General appearance: normal weight, no acute distress - Respiratory Respiratory exam: Present: clear to auscultation bilaterally - Cardiovascular Cardiovascular exam: Present: regular rate and rhythm - GI/Abdominal GI/Abdominal exam: Present: normal bowel sounds, soft - Extremities Exam Extremities exam: Absent: edema Results - Labs CBC & BMP: 07/17/17 02:11 07/17/17 02:11 Lab Results: I have reviewed the past 24 hour labs Quality Measures - VTE Contraindication to Pharmacological VTE Prophylaxis: High Risk of Bleeding
--- NOTE | 2017-07-17 10:54 | Event Note ---
Status post right above-knee amputation. Afebrile vital signs stable. Creatinine improved. H&H is stable. Dressing remains dry. Continue supportive care.
--- NOTE | 2017-07-17 12:19 | Nephrology Progress Note ---
Nephrology - PN: Subj Interval history: He is asymptomatic today. Exam (PN)-Nephrology - Vital Signs Vital signs: Period Temp Pulse Resp BP Sys/[place] Pulse Ox Last 24 Hr 97.2 F-98.1 F 68-79 17-20 123-155/56-70 96-100 Exam: Gen.: Alert and oriented x3. ENT: Pupils equal round reactive to light. EOMs intact. Mucous membranes moist. Neck: Supple. No JVD or bruit. Cardiovascular: Regular rate and rhythm. No murmur rub or gallop Lungs: Clear Abdomen: Soft. Nontender. Positive bowel sounds. No organomegaly Extremities: Bilateral AKA - Lab 07/17/17 02:11 07/17/17 02:11 Most recent lab results Calcium 7.5 MG/DL (8.5-10.1) L 07/17/17 02:11 Magnesium 1.5 MG/DL (1.8-2.4) L 07/13/17 03:56 Assessment and Plan (1) Acute on chronic renal failure Status: Acute Assessment and plan: 82-year-old man with: * CRF. Baseline creatinine 1.4 * ARF. Creatinine improved to 3.0. Urine output improved * Peripheral vascular disease. Status post left AKA. 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 He has an abnormal vascular study from [facility] that warrants at least a CTA and possibly formal arteriogram, but we may be looking at AKA. Status: Chronic Current Visit: Yes
--- NOTE | 2017-07-17 14:37 | Cardiology Progress Note ---
Assessment and Plan (1) Leg pain Status: Resolved Current Visit: Yes Qualifiers: Laterality: right Qualified Code(s): M79.604 - Pain in right leg (2) Preoperative cardiovascular examination Status: Resolved Current Visit: Yes (3) Dyslipidemia Status: Chronic Current Visit: Yes (4) ICD (implantable cardioverter-defibrillator) in place Status: Chronic Current Visit: Yes (5) Language barrier Status: Chronic Current Visit: Yes (6) Peripheral arterial disease Problem details: Peripheral arterial disease of the right lower extremity with large ulcerations and significant rest pain. He has an abnormal vascular study from [facility] that warrants at least a CTA and possibly formal arteriogram, but we may be looking at AKA. Status: Chronic Current Visit: Yes (7) Coronary artery disease Status: Chronic Current Visit: Yes (8) Diabetes mellitus Status: Chronic Current Visit: Yes Qualifiers: Diabetes mellitus type: type 2 Diabetes mellitus complication status: with circulatory complication Diabetes mellitus exterminator helper insulin use: without exterminator helper use (9) Hx of CABG Status: Chronic Current Visit: Yes (10) Hypertension Status: Chronic Current Visit: Yes (11) Ischemic cardiomyopathy Status: Chronic Current Visit: Yes (12) S/P AKA (above knee amputation) Status: Acute Current Visit: Yes Qualifiers: Laterality: right Qualified Code(s): Z89.611 - Acquired absence of right leg above knee Cardiology - PN: Subj Interval history: Cardiology note Postop day #3 right leg AKA. Acute renal failure superimposed on chronic. Creatinine down to 3.0 today. Blood pressure 140/76 Weight is stable at 68 kg. Decreased breath sounds No murmur Stump dressing is dry Lab data today White count 5.1 hemoglobin 8.0 hematocrit 24.2 Sodium 145 potassium 3.8 chloride 114 CO2 21 BUN 44 creatinine down to 3.0 Glucose 131 Impression Postop day #2 right leg AKA Acute renal failure superimposed on chronic, due to recent contrast administration. Creatinine today down to 3.0 Status post three-vessel CABG November 1995 Status post left main stent and distal RCA stent July 19, 2013 Status post left leg AKA Status post ICD PVD Ischemic cardiomyopathy Anemia Plan Wound care antibiotics/ BMP in a.m. Continue hydralazine 10 mg twice daily Continue Coreg 3.125 mg twice daily Continue simvastatin 20 mg daily Exam (Progress Note) - Constitutional Vitals: Period Temp Pulse Resp BP Sys/[place] Pulse Ox Last 24 Hr 97.2 F-98.1 F 68-79 17-20 123-155/56-70 95-100 Result/EKG - Labs CBC & BMP: 07/17/17 02:11 07/17/17 02:11 Labs: Laboratory Results - last 24 hr 07/16/17 07/16/17 07/17/17 15:29 20:18 02:11 WBC 5.1 RBC 2.71 L Hgb 8.0 L Hct 24.2 L MCV 89.3 MCH 30 MCHC 33.1 RDW 14.8 Plt Count 225 MPV 9.6 Neut % (Auto) 71.8 Lymph % (Auto) 14.6 L [place] % (Auto) 7.7 Eos % (Auto) 4.7 Baso % (Auto) 0.4 Neut # (Auto) 3.6 Lymph # (Auto) 0.7 L [place] # (Auto) 0.4 Eos # (Auto) 0.2 Baso # (Auto) 0.0 Immature Gran % 0.8 Nucleated RBC % 0.0 Immature Gran # 0.04 Nucleated RBCs # 0.00 Immature Plt Fraction 0.0 Sodium Potassium Chloride Carbon Dioxide Anion Gap BUN Creatinine GFR Calculation BUN/Creatinine Ratio Glucose POC Glucose 198 H 146 H Calculated Osmolality Calcium 07/17/17 07/17/17 02:11 07:29 WBC RBC Hgb Hct MCV MCH MCHC RDW Plt Count MPV Neut % (Auto) Lymph % (Auto) [place] % (Auto) Eos % (Auto) Baso % (Auto) Neut # (Auto) Lymph # (Auto) [place] # (Auto) Eos # (Auto) Baso # (Auto) Immature Gran % Nucleated RBC % Immature Gran # Nucleated RBCs # Immature Plt Fraction Sodium 145 Potassium 3.8 Chloride 114 H Carbon Dioxide 21 Anion Gap 13.8 BUN 44 H Creatinine 3.00 H GFR Calculation 18 BUN/Creatinine Ratio 14.00 Glucose 125 H POC Glucose 131 H Calculated Osmolality 299.7 Calcium 7.5 L Quality Measures - VTE Contraindication to Pharmacological VTE Prophylaxis: High Risk of Bleeding
[2017-07-17] MEDS: CEFEPIME 1,000 MG in SODIUM CHLORIDE 0.9% 100 ML IV SCH (18:33)
[2017-07-17] MEDS: SIMVASTATIN 20 MG TABLET PO SCH (23:12)
[2017-07-18 03:24] LABS: Basophils % 0.3 % (0.0-0.8); Eosinophils # 0.2 10*3/uL (0.0-0.87); Eosinophils % 3.5 % (0.00-10.9); Hematocrit 25.7 VOL% (42.0-52.0); Hemoglobin 8.7 GM/DL (14.0-18.0); Immature Granulocytes Absolute 0.06 #; Lymphocytes # 1.1 10*3/uL (1.4-4.0); Lymphocytes % 18.1 % (21.2-54.2); Mean Corpuscular HGB Conc 33.9 GM/DL (32-36); Mean Corpuscular Hemoglobin 30 PG (27-34); Mean Corpuscular Volume 87.1 FL (87-102); Mean Platelet Volume 9.2 FL (9.6-12.0); Monocytes # 0.5 10*3/uL (0.11-0.8); Monocytes % 8.1 % (1.7-12.7); Neutrophils # 4.1 10*3/uL (1.4-7.4); Platelet Count 260 T/CUMM (130-400); Red Blood Count 2.95 MC/CUMM (3.8-5.5); Red Cell Distribution Width 14.4 % (9.3-17.3)
[2017-07-18 03:51] LABS: Calcium 7.7 MG/DL (8.5-10.1); Osmolality,Calculated 296.6 MOS/KG (273-304); Potassium 3.5 MMOL/L (3.5-5.1)
[2017-07-18] MEDS: INSULIN REGULAR 100 UNIT/ML SUBCUT SCH ×4 (08:06→21:12)
--- NOTE | 2017-07-18 09:42 | Hospitalist Progress Note ---
Assessment and Plan (1) Type 2 diabetes mellitus Status: Chronic Assessment and plan: 1)DMT2- glucose is well controlled. continue SSI. 2)NORAH on CKD- creatinine is down to 2.5. baseline is 1.7. little edema. on lasix at 40mg a day his home dose per nephrology. Current Visit: No (2) S/P AKA (above knee amputation) Status: Acute Current Visit: Yes Qualifiers: Laterality: right Qualified Code(s): Z89.611 - Acquired absence of right leg above knee (3) Acute kidney injury superimposed on chronic kidney disease Status: Acute Current Visit: Yes Hospitalist: Subjective Interval history: Mr Osborne has no complaints. He is eating well. Denies pain. Exam - Constitutional Vitals: Period Temp Pulse Resp BP Sys/[place] Pulse Ox Last 24 Hr 97.7 F-98.4 F 61-73 18-20 135-161/54-68 95-99 General appearance: normal weight, no acute distress - Eye Eye exam: Present: EOMI. Absent: scleral icterus - Respiratory Respiratory exam: Present: clear to auscultation bilaterally - Cardiovascular Cardiovascular exam: Present: regular rate and rhythm - GI/Abdominal GI/Abdominal exam: Present: normal bowel sounds, soft. Absent: tenderness - Extremities Exam Extremities exam: Present: other (bilateral amputations) - Neurological Exam Neurological exam: Present: alert, oriented X3 - Skin Skin exam: Present: warm, dry Results - Labs CBC & BMP: 07/18/17 03:09 07/18/17 03:09 Lab Results: I have reviewed the past 24 hour labs Quality Measures - VTE Contraindication to Pharmacological VTE Prophylaxis: High Risk of Bleeding
[2017-07-18] MEDS: ASPIRIN CHEW 81 MG TABLET PO SCH (09:53)
[2017-07-18] MEDS: hydrALAZINE 10 MG TABLET PO SCH (09:53)
[2017-07-18] MEDS: FUROSEMIDE 40 MG TABLET PO SCH (09:53)
[2017-07-18] MEDS: DOCUSATE SODIUM 100 MG CAPSULE PO SCH ×2 (09:53→21:12)
[2017-07-18] MEDS: CARVEDILOL 3.125 MG TABLET PO SCH ×2 (09:53→21:12)
[2017-07-18] MEDS: PENTOXIFYLLINE 400 MG TABLET PO SCH ×3 (09:54→21:12)
[2017-07-18] MEDS: PANTOPRAZOLE 40 MG TABLET PO SCH (09:54)
--- NOTE | 2017-07-18 10:13 | Event Note ---
Patient is postop day #5 status post right AKA. Patient report his pain is controlled. No events overnight. Vital signs stable afebrile Dressings clean, dry and intact. Surgical incision is clean, dry and intact without local evidence of erythema or active drainage. Labs reviewed H&H stable; creatinine improved Assessment and plan Patient is postop day #5 status post right AKA. Appears surgically stable. Repeat labs in the morning. Continue IV antibiotics.
--- NOTE | 2017-07-18 12:58 | Cardiology Progress Note ---
Assessment and Plan (1) Leg pain Status: Resolved Current Visit: Yes Qualifiers: Laterality: right Qualified Code(s): M79.604 - Pain in right leg (2) Preoperative cardiovascular examination Status: Resolved Current Visit: Yes (3) Dyslipidemia Status: Chronic Current Visit: Yes (4) ICD (implantable cardioverter-defibrillator) in place Status: Chronic Current Visit: Yes (5) Language barrier Status: Chronic Current Visit: Yes (6) Peripheral arterial disease Problem details: Peripheral arterial disease of the right lower extremity with large ulcerations and significant rest pain. He has an abnormal vascular study from [facility] that warrants at least a CTA and possibly formal arteriogram, but we may be looking at AKA. Status: Chronic Current Visit: Yes (7) Coronary artery disease Status: Chronic Current Visit: Yes (8) Diabetes mellitus Status: Chronic Current Visit: Yes Qualifiers: Diabetes mellitus type: type 2 Diabetes mellitus complication status: with circulatory complication Diabetes mellitus terminal gauger insulin use: without terminal gauger use (9) Hx of CABG Status: Chronic Current Visit: Yes (10) Hypertension Status: Chronic Current Visit: Yes (11) Ischemic cardiomyopathy Status: Chronic Current Visit: Yes (12) S/P AKA (above knee amputation) Status: Acute Current Visit: Yes Qualifiers: Laterality: right Qualified Code(s): Z89.611 - Acquired absence of right leg above knee Cardiology - PN: Subj Interval history: Cardiology note Postop day #4 right leg AKA. . Acute renal failure superimposed on chronic. Creatinine today is down to 2.50. Blood pressure 150/70 Weight today is down to 64.15 kg. Regular rhythm no murmur Decreased breath sounds but fairly clear Stump dressing dry Lab data today Sodium 146 potassium 3.5 chloride 112 CO2 24 BUN 36 creatinine down to 2.50 Impression Postop day #3 right leg AKA Acute renal failure superimposed on chronic, due to recent contrast administration. Creatinine today down to 2.50 Status post three-vessel CABG November 1995 Status post left main stent and distal RCA stent July 19, 2013 Status post left leg AKA Status post ICD Ischemic cardia myopathy Anemia PVD Plan Wound care/antibiotics BMP in a.m. Increase hydralazine 25 mg twice daily Continue Coreg 3.125 mg twice daily Continue simvastatin 20 mg daily Exam (Progress Note) - Constitutional Vitals: Period Temp Pulse Resp BP Sys/[place] Pulse Ox Last 24 Hr 97.7 F-98.4 F 61-73 18-20 137-161/54-68 96-99 Result/EKG - Labs CBC & BMP: 07/18/17 03:09 07/18/17 03:09 Labs: Laboratory Results - last 24 hr 07/17/17 07/17/17 07/17/17 12:00 16:11 19:55 WBC RBC Hgb Hct MCV MCH MCHC RDW Plt Count MPV Neut % (Auto) Lymph % (Auto) [place] % (Auto) Eos % (Auto) Baso % (Auto) Neut # (Auto) Lymph # (Auto) [place] # (Auto) Eos # (Auto) Baso # (Auto) Immature Gran % Nucleated RBC % Immature Gran # Nucleated RBCs # Immature Plt Fraction Sodium Potassium Chloride Carbon Dioxide Anion Gap BUN Creatinine GFR Calculation BUN/Creatinine Ratio Glucose POC Glucose 205 H 188 H 267 H Calculated Osmolality Calcium 07/18/17 07/18/17 07/18/17 03:09 03:09 07:08 WBC 6.0 RBC 2.95 L Hgb 8.7 L Hct 25.7 L MCV 87.1 MCH 30 MCHC 33.9 RDW 14.4 Plt Count 260 MPV 9.2 L Neut % (Auto) 69.0 Lymph % (Auto) 18.1 L [place] % (Auto) 8.1 Eos % (Auto) 3.5 Baso % (Auto) 0.3 Neut # (Auto) 4.1 Lymph # (Auto) 1.1 L [place] # (Auto) 0.5 Eos # (Auto) 0.2 Baso # (Auto) 0.0 Immature Gran % 1.0 Nucleated RBC % 0.0 Immature Gran # 0.06 Nucleated RBCs # 0.00 Immature Plt Fraction 0.0 Sodium 146 H Potassium 3.5 Chloride 112 H Carbon Dioxide 24 Anion Gap 13.5 BUN 36 H Creatinine 2.50 H GFR Calculation 23 BUN/Creatinine Ratio 14.00 Glucose 78 POC Glucose 128 H Calculated Osmolality 296.6 Calcium 7.7 L 07/18/17 10:44 WBC RBC Hgb Hct MCV MCH MCHC RDW Plt Count MPV Neut % (Auto) Lymph % (Auto) [place] % (Auto) Eos % (Auto) Baso % (Auto) Neut # (Auto) Lymph # (Auto) [place] # (Auto) Eos # (Auto) Baso # (Auto) Immature Gran % Nucleated RBC % Immature Gran # Nucleated RBCs # Immature Plt Fraction Sodium Potassium Chloride Carbon Dioxide Anion Gap BUN Creatinine GFR Calculation BUN/Creatinine Ratio Glucose POC Glucose 207 H Calculated Osmolality Calcium Quality Measures - VTE Contraindication to Pharmacological VTE Prophylaxis: High Risk of Bleeding
[2017-07-18] MEDS: ENOXAPARIN 30 MG/0.3 ML SYRINGE SUBCUT SCH (13:11)
--- NOTE | 2017-07-18 15:04 | Nephrology Progress Note ---
Nephrology - PN: Subj Interval history: No shortness of breath. No GI symptoms Exam (PN)-Nephrology - Vital Signs Vital signs: Period Temp Pulse Resp BP Sys/[place] Pulse Ox Last 24 Hr 97.7 F-98.4 F 61-73 18-20 137-161/54-68 96-99 Exam: Gen.: Alert and oriented x3. ENT: Pupils equal round reactive to light. EOMs intact. Mucous membranes moist. Neck: Supple. No JVD or bruit. Cardiovascular: Regular rate and rhythm. No murmur rub or gallop Lungs: Clear Abdomen: Soft. Nontender. Positive bowel sounds. No organomegaly Extremities: Bilateral AKA - Lab 07/18/17 03:09 07/18/17 03:09 Most recent lab results Calcium 7.7 MG/DL (8.5-10.1) L 07/18/17 03:09 Magnesium 1.5 MG/DL (1.8-2.4) L 07/13/17 03:56 Assessment and Plan (1) Acute on chronic renal failure Status: Acute Assessment and plan: 82-year-old man with: * CRF. Baseline creatinine 1.4 * ARF. Creatinine improved to 2.5. Urine output improved * Peripheral vascular disease. Status post left AKA. 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 He has an abnormal vascular study from [facility] that warrants at least a CTA and possibly formal arteriogram, but we may be looking at AKA. Status: Chronic Current Visit: Yes
[2017-07-18] MEDS: CEFEPIME 1,000 MG in SODIUM CHLORIDE 0.9% 100 ML IV SCH (18:01)
[2017-07-18] MEDS: SIMVASTATIN 20 MG TABLET PO SCH (21:12)
[2017-07-18] MEDS: hydrALAZINE 25 MG TABLET PO SCH (21:12)
[2017-07-19 06:50] LABS: Basophils % 0.4 % (0.0-0.8); Eosinophils # 0.1 10*3/uL (0.0-0.87); Eosinophils % 1.9 % (0.00-10.9); Hematocrit 28.3 VOL% (42.0-52.0); Hemoglobin 9.4 GM/DL (14.0-18.0); Immature Granulocytes % 1.4 %; Lymphocytes % 13.8 % (21.2-54.2); Mean Corpuscular HGB Conc 33.2 GM/DL (32-36); Mean Corpuscular Hemoglobin 29 PG (27-34); Mean Corpuscular Volume 87.6 FL (87-102); Mean Platelet Volume 9.4 FL (9.6-12.0); Monocytes # 0.5 10*3/uL (0.11-0.8); Monocytes % 7.3 % (1.7-12.7); Neutrophils # 5.6 10*3/uL (1.4-7.4); Neutrophils % 75.2 % (38.7-73.9); Platelet Count 271 T/CUMM (130-400); Red Blood Count 3.23 MC/CUMM (3.8-5.5); Red Cell Distribution Width 14.1 % (9.3-17.3); White Blood Count 7.4 T/CUMM (4-12)
[2017-07-19 07:26] LABS: Calcium 7.6 MG/DL (8.5-10.1); Osmolality,Calculated 299.8 MOS/KG (273-304); Potassium 3.6 MMOL/L (3.5-5.1)
--- NOTE | 2017-07-19 07:27 | General Surgery Progress Note ---
Assessment and Plan - Time spent with patient Time spent with patient: Less than 30 minutes (1) Peripheral arterial disease Problem details: Peripheral arterial disease of the right lower extremity with large ulcerations and significant rest pain. He has an abnormal vascular study from [facility] that warrants at least a CTA and possibly formal arteriogram, but we may be looking at AKA. Status: Chronic Assessment and plan: 07/11/2017. 0800 hrs. Patient is stable his dressings are intact at this time has a moderate amount of pain and discomfort. His labs look better with this creatinine 1.5 and his hematocrit of 28. He is scheduled for CTA today and will see what our status he is and I would tell us what our best options are to treat this process. Current Visit: Yes (2) Above knee amputation of right lower extremity Status: Acute Assessment and plan: 07/19/2017. Patient is continue to recover from above the knee amputation. This was due to peripheral arterial disease that he is progressing nicely and the wound is continued to look good. Still has some moderate discomfort with dressing changes but I think at this point we are making good progress in improving his general status. Start making arrangements for discharge and home health as well as wound care. Current Visit: Yes Subjective Patient reports: Present: no new complaints, still having pain, pain is less, tolerating a regular diet, afebrile Exam - Constitutional Vitals: Period Temp Pulse Resp BP Sys/[place] Pulse Ox Last 24 Hr 97.7 F-98.7 F 70-82 18-18 131-158/49-68 95-99 General appearance: mild distress - Head Head exam: Present: normal inspection - Neck Neck exam: Present: normal inspection - Respiratory Respiratory exam: Present: rales - Cardiovascular Cardiovascular exam: Present: RRR - GI/Abdominal GI/Abdominal exam: Present: hypoactive bowel sounds, soft - Extremities Exam Extremities exam: Present: other (Incision right AKA amputation site is clean and dry with no sign of any skin loss or swelling or erythematous changes.) - Back Exam Back exam: Present: normal inspection - Neurological Exam Neurological exam: Present: alert, oriented X3, CN II-XII intact - Skin Skin exam: Present: normal color, warm, dry Results - Labs CBC & BMP: 07/19/17 06:28 07/18/17 03:09 Lab Results: I have reviewed the past 24 hour labs Quality Measures - VTE Contraindication to Pharmacological VTE Prophylaxis: High Risk of Bleeding
[2017-07-19] MEDS: hydrALAZINE 25 MG TABLET PO SCH ×2 (08:02→21:06)
[2017-07-19] MEDS: DOCUSATE SODIUM 100 MG CAPSULE PO SCH ×2 (08:03→21:06)
[2017-07-19] MEDS: PENTOXIFYLLINE 400 MG TABLET PO SCH ×3 (08:03→21:06)
[2017-07-19] MEDS: CARVEDILOL 3.125 MG TABLET PO SCH ×2 (08:03→21:06)
[2017-07-19] MEDS: ASPIRIN CHEW 81 MG TABLET PO SCH (08:03)
[2017-07-19] MEDS: FUROSEMIDE 40 MG TABLET PO SCH (08:03)
[2017-07-19] MEDS: PANTOPRAZOLE 40 MG TABLET PO SCH (08:03)
[2017-07-19] MEDS: INSULIN REGULAR 100 UNIT/ML SUBCUT SCH ×4 (08:04→21:05)
--- NOTE | 2017-07-19 08:17 | Nephrology Progress Note ---
Nephrology - PN: Subj Interval history: Mr. Osborne is seen in follow-up of his acute on chronic renal failure. His creatinine slowly falling, now back to 2.3. Baseline is about 1.5. His chest is clear and he has no peripheral edema. He is eating and drinking well. He is on 40 mg of Lasix daily which she was on as an outpatient. Exam (PN)-Nephrology - Vital Signs Vital signs: Period Temp Pulse Resp BP Sys/Valle[place] Pulse Ox Last 24 Hr 97.4 F-98.7 F 70-82 18-20 131-158/49-68 95-100 - Lab 07/19/17 06:28 07/19/17 06:28 Most recent lab results Calcium 7.6 MG/DL (8.5-10.1) L 07/19/17 06:28 Magnesium 1.5 MG/DL (1.8-2.4) L 07/13/17 03:56 Assessment and Plan (1) CKD stage 2 due to type 2 diabetes mellitus Status: Chronic Assessment and plan: Long-standing diabetes mellitus Current Visit: Yes (2) Diabetes mellitus Status: Chronic Current Visit: Yes Qualifiers: Diabetes mellitus type: type 2 Diabetes mellitus complication status: with circulatory complication Diabetes mellitus chcf insulin use: without chcf use (3) Peripheral arterial disease Problem details: Peripheral arterial disease of the right lower extremity with large ulcerations and significant rest pain. He has an abnormal vascular study from [facility] that warrants at least a CTA and possibly formal arteriogram, but we may be looking at AKA. Status: Chronic Current Visit: Yes
--- NOTE | 2017-07-19 10:34 | Hospitalist Progress Note ---
Assessment and Plan (1) Type 2 diabetes mellitus Status: Chronic Assessment and plan: 1)DMT2- glucose is well controlled. continue SSI. 2)NORAH on CKD- creatinine is down to 2.3. baseline is 1.7. little edema. on lasix at 40mg a day his home dose per nephrology. Current Visit: No (2) S/P AKA (above knee amputation) Status: Acute Current Visit: Yes Qualifiers: Laterality: right Qualified Code(s): Z89.611 - Acquired absence of right leg above knee (3) Acute kidney injury superimposed on chronic kidney disease Status: Acute Current Visit: Yes Hospitalist: Subjective Interval history: no complaints. Denies pain. Eating well. Discharge planning started by Dr Fernandez. Exam - Constitutional Vitals: Period Temp Pulse Resp BP Sys/Vallejo Pulse Ox Last 24 Hr 97.4 F-98.7 F 70-82 18-20 131-158/49-68 95-100 General appearance: normal weight, no acute distress - Respiratory Respiratory exam: Present: clear to auscultation bilaterally - Cardiovascular Cardiovascular exam: Present: regular rate and rhythm - GI/Abdominal GI/Abdominal exam: Present: normal bowel sounds, soft Results - Labs CBC & BMP: 07/19/17 06:28 07/19/17 06:28 Lab Results: I have reviewed the past 24 hour labs Quality Measures - VTE Contraindication to Pharmacological VTE Prophylaxis: High Risk of Bleeding
[2017-07-19] MEDS: ENOXAPARIN 30 MG/0.3 ML SYRINGE SUBCUT SCH (12:28)
[2017-07-19] MEDS: CEFEPIME 1,000 MG in SODIUM CHLORIDE 0.9% 100 ML IV SCH (17:42)
--- NOTE | 2017-07-19 18:20 | Cardiology Progress Note ---
Adam Rider April, RN, am scribing for, and in the presence of, Gorge Saxena MD 18:18. Assessment and Plan (1) Coronary artery disease Status: Chronic Assessment and plan: No chest pain or shortness of breath Since she is now days postop, right TANYA, will restart clopidogrel 75 mg daily Creatinine remains stable at 2.3 We will probably go to a swing bed near [facility] So far, no coronary ischemic events Current Visit: Yes (2) Dyslipidemia Status: Chronic Current Visit: Yes (3) ICD (implantable cardioverter-defibrillator) in place Status: Chronic Current Visit: Yes (4) Language barrier Status: Chronic Current Visit: Yes (5) Peripheral arterial disease Problem details: Peripheral arterial disease of the right lower extremity with large ulcerations and significant rest pain. He has an abnormal vascular study from [facility] that warrants at least a CTA and possibly formal arteriogram, but we may be looking at AKA. Status: Chronic Current Visit: Yes (6) Diabetes mellitus Status: Chronic Current Visit: Yes Qualifiers: Diabetes mellitus type: type 2 Diabetes mellitus complication status: with circulatory complication Diabetes mellitus fpc insulin use: without moth exterminator use (7) Hx of CABG Status: Chronic Current Visit: Yes (8) Hypertension Status: Chronic Current Visit: Yes (9) Ischemic cardiomyopathy Status: Chronic Current Visit: Yes (10) S/P AKA (above knee amputation) Status: Acute Current Visit: Yes Qualifiers: Laterality: right Qualified Code(s): Z89.611 - Acquired absence of right leg above knee Cardiology - PN: Subj Interval history: 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 NELSON Summary: Mr. Osborne, 82ChM, last seen in cardiology clinic November 24, 2015. Risk factors include: age, known coronary artery disease S/P CABG December 12, 1995 (GALVEZ -LAD, SVG - Cx, SVG - OM), hypertension, dyslipidemia, diabetes, PVD , sedentary lifestyle, family history premature coronary artery disease, noncompliance. History of ischemic cardiomyopathy S/P Medtronic Bi-V ICD implantation February 19, 2014. Echocardiogram June 01, 2015: EF 15%, global hypokinesis with grade 3 diastolic dysfunction, mild concentric LVH, RVSP 44 mmHg + RAP. Last heart catheterization: July 19, 2013 with the following impression noted: PCI to the left main coronary artery with DENA, PCI to the distal RCA with DENA, PCI with DENA to the proximal portion distal RCA stent overlapping the distal stent. Patient was admitted July 07, [address] Fernandez for further workup of the right lower extremity ulcerations and significant wrist pain. He has an abnormal vascular study from [facility] which warrants a CTA and possibly formal arteriogram. He has not followed up with Dr. Nelson since November 2015. Pacemaker was interrogated by [employer] rep. Reportedly checked fine with no episodes of atrial fibrillation. Was noted if he requires surgery, magnet will need to be placed to pacemaker. Echocardiogram done this admission with EF 30%. He underwent right AKA July [address] Fernandez. July 19, 2017: Mr. Osborne is day 6 status post right AKA. Dressing noted to right stump, dry and intact. He denies any chest pain, shortness of breath, or palpitations. Lasix 40 mg p.o. daily has been restarted. I's and O's have been negative over the last several days, and his weight is down. His H&H today is improved to 9.4 and 28.3. Creatinine is slightly improved at 2.3. Discharge planning has been started by attending. Ok to restart Plavix. Exam (Progress Note) - Constitutional Vitals: Period Temp Pulse Resp BP Sys/Vallejo Pulse Ox Last 24 Hr 97.4 F-98.7 F 70-82 18-20 131-158/49-68 95-100 Exam: General: Appears well with no apparent distress. Pleasant and cooperative. Appears comfortable. HEENT: Bilateral arcus, poor dentition, normocephalic, atraumatic. Mucous membranes moist. No jaundice noted. Conjunctiva moist and clear, sclerae anicteric Neck: No JVD/HJR, no thyromegaly or lymphadenopathy noted. No carotid bruit appreciated Cardiac: Regular rate and rhythm. No obvious murmur rub or gallop. Left precordial area with ICD noted. Lungs: Clear to auscultation without accessory muscle use to assist the respiratory pattern. Not requiring oxygen Abdomen: Soft, bowel sounds normoactive. Nontender and nondistended. No abdominal bruit or thrill noted. No masses noted. Musculoskeletal: No fluid collection. Decreased range of motion is noted, particularly the right lower extremity. Extremities: No clubbing, cyanosis noted. No edema noted. Upper extremity pulses 2+. Left [id number] amputation. Right AKA, stump is dressed. Skin: Midsternal incision with dime size lesion noted. No skin breakdown appreciated. Cannot assess right lower extremity as it is wrapped. Neuro: Awake, alert and cooperative. No essential tremor is appreciated. Result/EKG - Labs CBC & BMP: 07/19/17 06:28 07/19/17 06:28 Lab Results: I have reviewed the past 24 hour labs Labs: Laboratory Results - last 24 hr 07/18/17 07/18/17 07/18/17 10:44 16:01 19:34 WBC RBC Hgb Hct MCV MCH MCHC RDW Plt Count MPV Neut % (Auto) Lymph % (Auto) Jay % (Auto) Eos % (Auto) Baso % (Auto) Neut # (Auto) Lymph # (Auto) Jay # (Auto) Eos # (Auto) Baso # (Auto) Immature Gran % Nucleated RBC % Immature Gran # Nucleated RBCs # Immature Plt Fraction Sodium Potassium Chloride Carbon Dioxide Anion Gap BUN Creatinine GFR Calculation BUN/Creatinine Ratio Glucose POC Glucose 207 H 248 H 213 H Calculated Osmolality Calcium 07/19/17 07/19/17 07/19/17 06:28 06:28 06:46 WBC 7.4 RBC 3.23 L Hgb 9.4 L Hct 28.3 L MCV 87.6 MCH 29 MCHC 33.2 RDW 14.1 Plt Count 271 MPV 9.4 L Neut % (Auto) 75.2 H Lymph % (Auto) 13.8 L Jay % (Auto) 7.3 Eos % (Auto) 1.9 Baso % (Auto) 0.4 Neut # (Auto) 5.6 Lymph # (Auto) 1.0 L Jay # (Auto) 0.5 Eos # (Auto) 0.1 Baso # (Auto) 0.0 Immature Gran % 1.4 Nucleated RBC % 0.0 Immature Gran # 0.10 Nucleated RBCs # 0.00 Immature Plt Fraction 0.0 Sodium 144 Potassium 3.6 Chloride 108 H Carbon Dioxide 27 Anion Gap 12.6 BUN 38 H Creatinine 2.30 H GFR Calculation 25 BUN/Creatinine Ratio 16.00 Glucose 188 H POC Glucose 237 H Calculated Osmolality 299.8 Calcium 7.6 L - Diagnostic Findings Procedure: Chest x-ray: report reviewed by me Quality Measures - VTE Contraindication to Pharmacological VTE Prophylaxis: High Risk of Bleeding Hemanth Rider Dale, MD, personally performed the services described in this documentation, ascribed by Caterina Medina RN in my presence, and it is both accurate and complete 818 .
[2017-07-19] MEDS: SIMVASTATIN 20 MG TABLET PO SCH (21:06)
[2017-07-20 04:02] LABS: Calcium 7.9 MG/DL (8.5-10.1); Magnesium 1.9 MG/DL (1.8-2.4); Osmolality,Calculated 296.8 MOS/KG (273-304); Potassium 3.4 MMOL/L (3.5-5.1)
[2017-07-20] MEDS: INSULIN REGULAR 100 UNIT/ML SUBCUT SCH ×5 (07:52→21:08)
--- NOTE | 2017-07-20 08:19 | Nephrology Progress Note ---
Nephrology - PN: Subj Interval history: Mr. Osborne is seen in follow-up of his acute renal failure superimposed on chronic renal failure. Creatinine continues to fall and is now 2.2. He has no significant edema is eating and drinking well. His chest is clear and he is not short of breath. I think he will continue to recover back to his baseline and we will sign off. Please reconsult if needed Exam (PN)-Nephrology - Vital Signs Vital signs: Period Temp Pulse Resp BP Sys/[place] Pulse Ox Last 24 Hr 97.1 F-98.2 F 61-82 16-18 125-157/51-76 96-97 - Lab 07/19/17 06:28 07/20/17 03:02 Most recent lab results Calcium 7.9 MG/DL (8.5-10.1) L 07/20/17 03:02 Magnesium 1.9 MG/DL (1.8-2.4) 07/20/17 03:02 Assessment and Plan (1) CKD stage 2 due to type 2 diabetes mellitus Status: Chronic Assessment and plan: Long-standing diabetes mellitus Current Visit: Yes (2) Diabetes mellitus Status: Chronic Current Visit: Yes Qualifiers: Diabetes mellitus type: type 2 Diabetes mellitus complication status: with circulatory complication Diabetes mellitus intermediate manager insulin use: without fdc use (3) Peripheral arterial disease Problem details: Peripheral arterial disease of the right lower extremity with large ulcerations and significant rest pain. He has an abnormal vascular study from [facility] that warrants at least a CTA and possibly formal arteriogram, but we may be looking at AKA. Status: Chronic Current Visit: Yes
--- NOTE | 2017-07-20 09:20 | General Surgery Progress Note ---
Assessment and Plan - Time spent with patient Time spent with patient: Less than 30 minutes (1) Peripheral arterial disease Problem details: Peripheral arterial disease of the right lower extremity with large ulcerations and significant rest pain. He has an abnormal vascular study from [facility] that warrants at least a CTA and possibly formal arteriogram, but we may be looking at AKA. Status: Chronic Assessment and plan: 07/11/2017. 0800 hrs. Patient is stable his dressings are intact at this time has a moderate amount of pain and discomfort. His labs look better with this creatinine 1.5 and his hematocrit of 28. He is scheduled for CTA today and will see what our status he is and I would tell us what our best options are to treat this process. Current Visit: Yes (2) Above knee amputation of right lower extremity Status: Acute Assessment and plan: 07/19/2017. Patient is continue to recover from above the knee amputation. This was due to peripheral arterial disease that he is progressing nicely and the wound is continued to look good. Still has some moderate discomfort with dressing changes but I think at this point we are making good progress in improving his general status. Start making arrangements for discharge and home health as well as wound care. 07/20/2017 Patient is afebrile seems to be eating better now more relaxed and resting easier. Dressings in place with the stump stocking and he still has some moderate discomfort in the amputation site but in general is doing fairly well. Attempting to set up home health and arrange for him to be possibly discharged tomorrow for follow-up down the road. Current Visit: Yes Subjective Patient reports: Present: feels better, tolerating a regular diet, afebrile Exam - Constitutional Vitals: Period Temp Pulse Resp BP Sys/Vallejo Pulse Ox Last 24 Hr 97.1 F-98.2 F 61-82 16-18 125-157/51-76 96-97 General appearance: mild distress - Head Head exam: Present: normal inspection - ENT ENT exam: Present: normal exam - Neck Neck exam: Present: normal inspection - Respiratory Respiratory exam: Present: rales - Cardiovascular Cardiovascular exam: Present: RRR - GI/Abdominal GI/Abdominal exam: Present: normal bowel sounds, hyperactive bowel sounds - Extremities Exam Extremities exam: Present: other (Dressings in place right lower extremity with moderate pain still) - Back Exam Back exam: Present: normal inspection - Neurological Exam Neurological exam: Present: alert, oriented X3, CN II-XII intact - Skin Skin exam: Present: normal color, warm, dry Results - Labs CBC & BMP: 07/19/17 06:28 07/20/17 03:02 Lab Results: I have reviewed the past 24 hour labs Quality Measures - VTE Contraindication to Pharmacological VTE Prophylaxis: High Risk of Bleeding
[2017-07-20] MEDS: CLOPIDOGREL 75 MG TABLET PO SCH (09:32)
[2017-07-20] MEDS: DOCUSATE SODIUM 100 MG CAPSULE PO SCH ×2 (09:32→21:09)
[2017-07-20] MEDS: PANTOPRAZOLE 40 MG TABLET PO SCH (09:33)
[2017-07-20] MEDS: PENTOXIFYLLINE 400 MG TABLET PO SCH ×3 (09:33→21:09)
[2017-07-20] MEDS: FUROSEMIDE 40 MG TABLET PO SCH (09:33)
[2017-07-20] MEDS: ASPIRIN CHEW 81 MG TABLET PO SCH (09:33)
[2017-07-20] MEDS: CARVEDILOL 3.125 MG TABLET PO SCH ×2 (09:33→21:09)
[2017-07-20] MEDS: hydrALAZINE 25 MG TABLET PO SCH ×2 (09:34→21:09)
--- NOTE | 2017-07-20 11:09 | Event Note ---
Mr Osborne is doing well and expects to be discharged tomorrow. Lungs clear, heart regular, abdomen soft. accuchecks- 158-246 Continue with SSI but add his home glimepiride back this morning.
[2017-07-20] MEDS: GLIMEPIRIDE 2 MG TABLET PO SCH (12:06)
[2017-07-20] MEDS: ENOXAPARIN 30 MG/0.3 ML SYRINGE SUBCUT SCH (12:08)
[2017-07-20] MEDS: CEFEPIME 1,000 MG in SODIUM CHLORIDE 0.9% 100 ML IV SCH (18:00)
[2017-07-20] MEDS ORDERED: POTASSIUM CHLORIDE 20 MEQ PACK PO ONE (19:28)
--- NOTE | 2017-07-20 19:30 | Cardiology Progress Note ---
Adam Rider April RN, am scribing for, and in the presence of, Gorge Saxena MD 19:26. Assessment and Plan (1) Coronary artery disease Status: Chronic Assessment and plan: Initial assessment and plan July 19, 2017: No chest pain or shortness of breath Since she is now days postop, right AKA, will restart clopidogrel 75 mg daily Creatinine remains stable at 2.3 We will probably go to a swing bed near [facility] So far, no coronary ischemic events Assessment and plan July 20, 2017: No angina or overt heart failure Continue to recuperate post op. Continue watch renal function. Back on clopidogrel, doing fairly well. Potassium is low at 3.4. We will give KCl 20 records p.o. now. We will check electrolytes BUN and creatinine and a magnesium in the a.m. Current Visit: Yes (2) Dyslipidemia Status: Chronic Current Visit: Yes (3) ICD (implantable cardioverter-defibrillator) in place Status: Chronic Current Visit: Yes (4) Language barrier Status: Chronic Current Visit: Yes (5) Peripheral arterial disease Problem details: Peripheral arterial disease of the right lower extremity with large ulcerations and significant rest pain. He has an abnormal vascular study from [facility] that warrants at least a CTA and possibly formal arteriogram, but we may be looking at AKA. Status: Chronic Current Visit: Yes (6) Diabetes mellitus Status: Chronic Current Visit: Yes Qualifiers: Diabetes mellitus type: type 2 Diabetes mellitus complication status: with circulatory complication Diabetes mellitus retirement insulin use: without termite helper use (7) Hx of CABG Status: Chronic Current Visit: Yes (8) Hypertension Status: Chronic Current Visit: Yes (9) Ischemic cardiomyopathy Status: Chronic Current Visit: Yes (10) S/P AKA (above knee amputation) Status: Acute Current Visit: Yes Qualifiers: Laterality: right Qualified Code(s): Z89.611 - Acquired absence of right leg above knee Cardiology - PN: Subj Interval history: SUPERVISOR AIRPLANE FLIGHT ATTENDANT: DR. NELSON Summary: Mr. Osborne, 82ChM, last seen in cardiology clinic November 24, 2015. Risk factors include: age, known coronary artery disease S/P CABG December 12, 1995 (GALVEZ -LAD, SVG - Cx, SVG - OM), hypertension, dyslipidemia, diabetes, PVD , sedentary lifestyle, family history premature coronary artery disease, noncompliance. History of ischemic cardiomyopathy S/P Medtronic Bi-V ICD implantation February 19, 2014. Echocardiogram June 01, 2015: EF 15%, global hypokinesis with grade 3 diastolic dysfunction, mild concentric LVH, RVSP 44 mmHg + RAP. Last heart catheterization: July 19, 2013 with the following impression noted: PCI to the left main coronary artery with DENA, PCI to the distal RCA with DENA, PCI with DENA to the proximal portion distal RCA stent overlapping the distal stent. Patient was admitted July 07, [address] Fernandez for further workup of the right lower extremity ulcerations and significant wrist pain. He has an abnormal vascular study from [facility] which warrants a CTA and possibly formal arteriogram. He has not followed up with Dr. Nelson since November 2015. Pacemaker was interrogated by [employer] rep. Reportedly checked fine with no episodes of atrial fibrillation. Was noted if he requires surgery, magnet will need to be placed to pacemaker. Echocardiogram done this admission with EF 30%. He underwent right AKA July [address] Fernandez. July 19, 2017: Mr. Osborne is day 6 status post right AKA. Dressing noted to right stump, dry and intact. He denies any chest pain, shortness of breath, or palpitations. Lasix 40 mg p.o. daily has been restarted. I's and O's have been negative over the last several days, and his weight is down. His H&H today is improved to 9.4 and 28.3. Creatinine is slightly improved at 2.3. Discharge planning has been started by attending. Ok to restart Plavix. July 20, 2017: Mr. Osborne is day 7 status post right AKA. He reports having less pain to his stump, dressing dry and intact. He denies any chest pain, shortness of breath, palpitations, or dizziness. Vital signs been stable throughout the night. His Plavix has been restarted. His Lasix has been restarted as well, potassium this morning is 3.4. His creatinine continues to trend down, this morning it is 2.2. Exam (Progress Note) - Constitutional Vitals: Period Temp Pulse Resp BP Sys/Vallejo Pulse Ox Last 24 Hr 97.1 F-98.2 F 61-82 16-18 125-157/51-76 96-97 Exam: General: Appears well with no apparent distress. Pleasant and cooperative. Appears comfortable. HEENT: Bilateral arcus, poor dentition, normocephalic, atraumatic. Mucous membranes moist. No jaundice noted. Conjunctiva moist and clear, sclerae anicteric Neck: No JVD/HJR, no thyromegaly or lymphadenopathy noted. No carotid bruit appreciated Cardiac: Regular rate and rhythm. No obvious murmur rub or gallop. Left precordial area with ICD noted. Lungs: Clear to auscultation without accessory muscle use to assist the respiratory pattern. Not requiring oxygen Abdomen: Soft, bowel sounds normoactive. Nontender and nondistended. No abdominal bruit or thrill noted. No masses noted. Musculoskeletal: No fluid collection. Decreased range of motion is noted, particularly the right lower extremity. Extremities: No clubbing, cyanosis noted. No edema noted. Upper extremity pulses 2+. Left [id number]-[id number]-imio amputation. Right AKA, stump is dressed. Skin: Midsternal incision with dime size lesion noted. No skin breakdown appreciated. Cannot assess right lower extremity as it is wrapped. Neuro: Awake, alert and cooperative. No essential tremor is appreciated. Result/EKG - Labs CBC & BMP: 07/19/17 06:28 07/20/17 03:02 Lab Results: I have reviewed the past 24 hour labs Labs: Laboratory Results - last 24 hr 07/19/17 07/19/17 07/19/17 10:59 15:49 20:16 Sodium Potassium Chloride Carbon Dioxide Anion Gap BUN Creatinine GFR Calculation BUN/Creatinine Ratio Glucose POC Glucose 235 H 246 H 158 H Calculated Osmolality Calcium Magnesium 07/20/17 07/20/17 03:02 07:01 Sodium 144 Potassium 3.4 L Chloride 108 H Carbon Dioxide 27 Anion Gap 12.4 BUN 39 H Creatinine 2.20 H GFR Calculation 26 BUN/Creatinine Ratio 17.00 Glucose 136 H POC Glucose 163 H Calculated Osmolality 296.8 Calcium 7.9 L Magnesium 1.9 Quality Measures - VTE Contraindication to Pharmacological VTE Prophylaxis: High Risk of Bleeding Hemanth Rider Dale, MD, personally performed the services described in this documentation, ascribed by Caterina Medina RN in my presence, and it is both accurate and complete .
[2017-07-20] MEDS: SIMVASTATIN 20 MG TABLET PO SCH (21:08)
[2017-07-21 07:32] LABS: Basophils % 0.6 % (0.0-0.8); Eosinophils # 0.2 10*3/uL (0.0-0.87); Eosinophils % 3.5 % (0.00-10.9); Hematocrit 28.2 VOL% (42.0-52.0); Hemoglobin 9.4 GM/DL (14.0-18.0); Immature Granulocytes % 1.4 %; Immature Granulocytes Absolute 0.09 #; Lymphocytes # 1.2 10*3/uL (1.4-4.0); Lymphocytes % 18.4 % (21.2-54.2); Mean Corpuscular HGB Conc 33.3 GM/DL (32-36); Mean Corpuscular Hemoglobin 30 PG (27-34); Mean Corpuscular Volume 88.7 FL (87-102); Mean Platelet Volume 9.4 FL (9.6-12.0); Monocytes # 0.7 10*3/uL (0.11-0.8); Neutrophils # 4.4 10*3/uL (1.4-7.4); Neutrophils % 66.1 % (38.7-73.9); Platelet Count 294 T/CUMM (130-400); Red Blood Count 3.18 MC/CUMM (3.8-5.5); Red Cell Distribution Width 14.4 % (9.3-17.3); White Blood Count 6.6 T/CUMM (4-12)
[2017-07-21] MEDS: INSULIN REGULAR 100 UNIT/ML SUBCUT SCH ×2 (07:37→11:32)
[2017-07-21] MEDS: GLIMEPIRIDE 2 MG TABLET PO SCH (08:05)
[2017-07-21] MEDS: PENTOXIFYLLINE 400 MG TABLET PO SCH ×2 (08:06→14:49)
[2017-07-21] MEDS: hydrALAZINE 25 MG TABLET PO SCH (08:06)
[2017-07-21] MEDS: FUROSEMIDE 40 MG TABLET PO SCH (08:07)
[2017-07-21] MEDS: CARVEDILOL 3.125 MG TABLET PO SCH (08:07)
[2017-07-21] MEDS: DOCUSATE SODIUM 100 MG CAPSULE PO SCH (08:07)
[2017-07-21 08:08] LABS: Calcium 7.8 MG/DL (8.5-10.1); Potassium 3.9 MMOL/L (3.5-5.1)
[2017-07-21] MEDS: PANTOPRAZOLE 40 MG TABLET PO SCH (08:08)
[2017-07-21] MEDS: ASPIRIN CHEW 81 MG TABLET PO SCH (08:08)
[2017-07-21] MEDS: CLOPIDOGREL 75 MG TABLET PO SCH (08:08)
--- NOTE | 2017-07-21 10:43 | Discharge Summary ---
Hospital Course - Time spent with patient Time with patient DS: Less than 30 minutes Diagnosis - Discharge Diagnosis (1) Peripheral arterial disease Status: Chronic (2) Above knee amputation of right lower extremity Status: Resolved (3) Diabetes mellitus Status: Chronic (4) Renal insufficiency Status: Chronic Specialty Discharge - Follow Up or Referrals Follow up with: Madhav Fernandez MD [Physician] - 08/08/17 Discharge Plan - Discharge Data Disposition: Home Health Service Condition at Discharge: Stable Discharge Diet: diabetic diet (1800-calorie ADA the diet) Activity: as per physical therapy, other (May transfer bed to chair. my ride in a car. Always have a foam pad for sitting) Hygiene: may shower, keep area(s) dry (Keep the incision clean and dry) Weight Bearing at Discharge: non-weight bearing Driving: other Contact your physician if you experience:: fever over 101, Redness or swelling, Bleeding, pain uncontrolled by pain medications Wound / Dressing Care Instructions: Wound care to the right AKA incision every other day. 1. Wash with Hibiclens. 2. Wound cleanser to the incision. 3. Apply Xeroform gauze to the incision. 4. Aquaphor to the rest of the scan of the flaps and of the thigh. 5. Cover the end of the stump with ABD pads and used the stump stocking to hold in place - Discharge Medications New Acetaminophen Tab [Tylenol Tab] 650 mg PO Q6H PRN tablet PRN Reason: Pain Mild (1-3) And/Or Fever Carvedilol [Coreg] 3.125 mg PO BID tablet hydrALAZINE TAB [Apresoline Tab] 25 mg PO BID tablet HYDROcodone/ACETAMIN 5-325 [[place] 5-325] 1 tablet PO Q8H PRN #30 tablet PRN Reason: Pain Mild To Moderate (1-7) Skin Healing Oint (Aquaphor) [Aquaphor] 1 applic TOP PRN PRN applic PRN Reason: Dry Skin Zinc Oxide Paste [Desitin Paste] 1 applic TOP PRN PRN applic PRN Reason: Diaper Rash Furosemide Tab [Lasix Tab] 40 mg PO DAILY tablet Pentoxifylline [TRENtal] 400 mg PO TID tablet Continue Simvastatin [Zocor] 20 mg PO BEDTIME Aspirin Chew Tab 81 mg PO DAILY Albuterol Inhaler [Proventil Inhaler] 2 puff INH Q4H PRN #1 inhaler PRN Reason: Shortness Of Breath/Wheezing Furosemide Tab [Lasix Tab] 40 mg PO DAILY Clopidogrel [Plavix] 75 mg PO DAILY Polyethylene Glycol Powder [Miralax] 17 gm PO BEDTIME Pantoprazole Tab [Protonix Tab] 40 mg PO DAILY Glimepiride 2 mg PO DAILY Docusate Sodium 100 mg PO BID Discontinued Lisinopril 5 mg PO DAILY - Follow Up or Referral - Forms/Instructions Exam - Constitutional Vitals: Period Temp Pulse Resp BP Sys/[place] Pulse Ox Last 24 Hr 97.1 F-98.2 F 76-81 18-20 125-145/54-71 95-99 General appearance: no acute distress - Head Head exam: Present: normal inspection - ENT ENT exam: Present: normal exam - Neck Neck exam: Present: normal inspection - Respiratory Respiratory exam: Present: clear to auscultation bilaterally, rales - Cardiovascular Cardiovascular exam: Present: regular rate and rhythm - GI/Abdominal GI/Abdominal exam: Present: hypoactive bowel sounds, soft. Absent: tenderness - Extremities Exam Extremities exam: Present: other (Wound of the right AKA is looking good and healing nicely without any sign of ischemic changes or infection.) - Back Exam Back exam: Present: normal inspection - Neurological Exam Neurological exam: Present: alert, oriented X3, CN II-XII intact - Psychiatric Psychiatric exam: Present: normal affect, anxious - Skin Skin exam: Present: normal color, warm, dry Discharge Results Labs on day of discharge: Labs from last 24 hours 07/21/17 07/21/17 07/21/17 06:54 06:33 06:33 WBC 6.6 RBC 3.18 L Hgb 9.4 L Hct 28.2 L MCV 88.7 MCH 30 MCHC 33.3 RDW 14.4 Plt Count 294 MPV 9.4 L Neut % (Auto) 66.1 Lymph % (Auto) 18.4 L [place] % (Auto) 10.0 Eos % (Auto) 3.5 Baso % (Auto) 0.6 Neut # (Auto) 4.4 Lymph # (Auto) 1.2 L [place] # (Auto) 0.7 Eos # (Auto) 0.2 Baso # (Auto) 0.0 Immature Gran % 1.4 Nucleated RBC % 0.0 Immature Gran # 0.09 Nucleated RBCs # 0.00 Immature Plt Fraction 0.0 Sodium 143 Potassium 3.9 Chloride 109 H Carbon Dioxide 27 Anion Gap 10.9 BUN 42 H Creatinine 2.10 H GFR Calculation 27 BUN/Creatinine Ratio 20.00 Glucose 89 POC Glucose 94 Calculated Osmolality 294.0 Calcium 7.8 L Magnesium 2.0 07/20/17 07/20/17 07/20/17 20:01 16:09 10:57 WBC RBC Hgb Hct MCV MCH MCHC RDW Plt Count MPV Neut % (Auto) Lymph % (Auto) [place] % (Auto) Eos % (Auto) Baso % (Auto) Neut # (Auto) Lymph # (Auto) [place] # (Auto) Eos # (Auto) Baso # (Auto) Immature Gran % Nucleated RBC % Immature Gran # Nucleated RBCs # Immature Plt Fraction Sodium Potassium Chloride Carbon Dioxide Anion Gap BUN Creatinine GFR Calculation BUN/Creatinine Ratio Glucose POC Glucose 173 H 137 H 239 H Calculated Osmolality Calcium Magnesium DS: Provider Date of admission: 07/07/17 11:46 Primary care physician: Thomas Wellington MD Attending physician on admission: Madhav Fernandez MD Consults: 07/07/17 11:43 Consult to Physician [CONS] Routine Comment: Pt known to you; will possibly need surgery Consulting Provider: Ildefonso Nelson Consulting Provider Notified: Yes When should Consulting Provider be notified: Now Person Notified: candice called Date Notified: 07/07/17 Time Notified: 12:12 07/07/17 11:44 Consult to Physician [CONS] Routine Comment: Pt with ischemic lower ext;pls follow medically Consulting Provider: [facility] Consulting Provider Notified: Yes When should Consulting Provider be notified: Now Person Notified: iglesia trevino called Date Notified: 07/07/17 Time Notified: 12:15 07/07/17 14:35 Consult to Pastoral Services [CONS] Routine Comment: Pastoral Screen: Request Senior Litigation Paralegal Visit Pastoral Screen Source of Request: Family 07/08/17 12:15 Consult to Physician [CONS] Routine Comment: Pt with elevated creatinine; needs CTA Consulting Provider: Madhav Mcfadden Consulting Provider Notified: Yes When should Consulting Provider be notified: Now Person Notified: diego called Date Notified: 07/08/17 Time Notified: 12:27 07/11/17 16:41 Consult to Physician [CONS] Routine Comment: Abnormal CTA; please eval Consulting Provider: Durga Peacock Consulting Provider Notified: Yes When should Consulting Provider be notified: In am Person Notified: alix gonzalez Date Notified: 07/12/17 Time Notified: 09:05 07/14/17 16:33 Consult to Pharmacy [CONS] Routine Reason for Pharmacy Consult: Dose/Manage Antibiotics Adjust Meds Renal Funct 07/19/17 07:21 Consult to Case Mgmt/Social Srvs [CONS] Routine Reason for Case Mgmt/Social Srvs: Discharge Planning Equipment Home Health Consult Comment: home health, foam pad for sitting, and poss hospital bed 07/19/17 07:28 Consult to Physical Therapy [CONS] Routine Reason for Physical Therapy: Evaluate and Treat Start Therapy: Today Consult Comment: Transfer bed to chair/ foam pad for sitting/ Discharging clinician: Madhav Fernandez MD Expected date of discharge: 07/21/17
[2017-07-21] MEDS: ENOXAPARIN 30 MG/0.3 ML SYRINGE SUBCUT SCH (11:36)
[2017-07-21 15:43] VITALS: BP 146/70
--- NOTE | 2017-07-22 05:31 | Cardiology Progress Note ---
Adam Rider April RN, am scribing for, and in the presence of, Gorge Saxena MD 05:28. Assessment and Plan (1) Coronary artery disease Status: Chronic Assessment and plan: Initial assessment and plan July 19, 2017: No chest pain or shortness of breath Since she is now days postop, right AKA, will restart clopidogrel 75 mg daily Creatinine remains stable at 2.3 We will probably go to a swing bed near [facility] So far, no coronary ischemic events Assessment and plan July 20, 2017: No angina or overt heart failure Continue to recuperate post op. Continue watch renal function. Back on clopidogrel, doing fairly well. Potassium is low at 3.4. We will give KCl 20 records p.o. now. We will check electrolytes BUN and creatinine and a magnesium in the a.m. 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 He has an abnormal vascular study from [facility] that warrants at least a CTA and possibly formal arteriogram, but we may be looking at AKA. Status: Chronic (6) Diabetes mellitus Status: Chronic Qualifiers: Diabetes mellitus type: type 2 Diabetes mellitus complication status: with circulatory complication Diabetes mellitus intermodal customer service insulin use: without intermodal customer service use (7) Hx of CABG Status: Chronic (8) Hypertension Status: Chronic (9) Ischemic cardiomyopathy Status: Chronic (10) S/P AKA (above knee amputation) Status: Acute Qualifiers: Laterality: right Qualified Code(s): Z89.611 - Acquired absence of right leg above knee Cardiology - PN: Subj Interval history: TRACTOR DRILL OPERATOR: DR. NELSON Summary: Mr. Osborne, 82ChM, last seen in cardiology clinic November 24, 2015. Risk factors include: age, known coronary artery disease S/P CABG December 12, 1995 (GALVEZ -LAD, SVG - Cx, SVG - OM), hypertension, dyslipidemia, diabetes, PVD , sedentary lifestyle, family history premature coronary artery disease, noncompliance. History of ischemic cardiomyopathy S/P Medtronic Bi-V ICD implantation February 19, 2014. Echocardiogram June 01, 2015: EF 15%, global hypokinesis with grade 3 diastolic dysfunction, mild concentric LVH, RVSP 44 mmHg + RAP. Last heart catheterization: July 19, 2013 with the following impression noted: PCI to the left main coronary artery with DENA, PCI to the distal RCA with DENA, PCI with DENA to the proximal portion distal RCA stent overlapping the distal stent. Patient was admitted July 07, [address] Fernandez for further workup of the right lower extremity ulcerations and significant wrist pain. He has an abnormal vascular study from [facility] which warrants a CTA and possibly formal arteriogram. He has not followed up with Dr. Nelson since November 2015. Pacemaker was interrogated by [employer] rep. Reportedly checked fine with no episodes of atrial fibrillation. Was noted if he requires surgery, magnet will need to be placed to pacemaker. Echocardiogram done this admission with EF 30%. He underwent right AKA July [address] Fernandez. July 19, 2017: Mr. Osborne is day 6 status post right AKA. Dressing noted to right stump, dry and intact. He denies any chest pain, shortness of breath, or palpitations. Lasix 40 mg p.o. daily has been restarted. I's and O's have been negative over the last several days, and his weight is down. His H&H today is improved to 9.4 and 28.3. Creatinine is slightly improved at 2.3. Discharge planning has been started by attending. Ronald to restart Plavix. July 20, 2017: Mr. Osborne is day 7 status post right AKA. He reports having less pain to his stump, dressing dry and intact. He denies any chest pain, shortness of breath, palpitations, or dizziness. Vital signs been stable throughout the night. His Plavix has been restarted. His Lasix has been restarted as well, potassium this morning is 3.4. His creatinine continues to trend down, this morning it is 2.2. July 21, 2017: Mr. Osborne is day 8 status post right AKA. He denies any chest pain, shortness of breath, palpitations, or dizziness. He reports his stump continues to have less pain. Vital signs been stable throughout the night. His weight has remained stable with negative I's and O's. Plavix and Lasix have both been restarted. His potassium was low yesterday, he was given a one-time dose of 20 meq p.o. Potassium this morning is 3.9. His creatinine has continued to trend down slowly, this morning it is 2.1. Magnesium is normal at 2.0. He is to be discharged today. We will schedule follow-up with Dr. Nelson in 4-6 weeks. Exam (Progress Note) - Constitutional Vitals: Period Temp Pulse Resp BP Sys/[place]le[place] Pulse Ox Last 24 Hr 97.1 F-98.2 F 76-81 18-20 125-145/54-71 95-99 Exam: General: Appears well with no apparent distress. Pleasant and cooperative. Appears comfortable. HEENT: Bilateral arcus, poor dentition, normocephalic, atraumatic. Mucous membranes moist. No jaundice noted. Conjunctiva moist and clear, sclerae anicteric Neck: No JVD/HJR, no thyromegaly or lymphadenopathy noted. No carotid bruit appreciated Cardiac: Regular rate and rhythm. No obvious murmur rub or gallop. Left precordial area with ICD noted. Lungs: Clear to auscultation without accessory muscle use to assist the respiratory pattern. Not requiring oxygen Abdomen: Soft, bowel sounds normoactive. Nontender and nondistended. No abdominal bruit or thrill noted. No masses noted. Musculoskeletal: No fluid collection. Decreased range of motion is noted, particularly the right lower extremity. Extremities: No clubbing, cyanosis noted. No edema noted. Upper extremity pulses 2+. Left [id number] amputation. Right AKA, stump is dressed. Skin: Midsternal incision with dime size lesion noted. No skin breakdown appreciated. Cannot assess right lower extremity as it is wrapped. Neuro: Awake, alert and cooperative. No essential tremor is appreciated. Result/EKG - Labs CBC & BMP: 07/21/17 06:33 07/21/17 06:33 Lab Results: I have reviewed the past 24 hour labs Labs: Laboratory Results - last 24 hr 07/20/17 07/20/17 07/20/17 10:57 16:09 20:01 WBC RBC Hgb Hct MCV MCH MCHC RDW Plt Count MPV Neut % (Auto) Lymph % (Auto) [place] % (Auto) Eos % (Auto) Baso % (Auto) Neut # (Auto) Lymph # (Auto) [place] # (Auto) Eos # (Auto) Baso # (Auto) Immature Gran % Nucleated RBC % Immature Gran # Nucleated RBCs # Immature Plt Fraction Sodium Potassium Chloride Carbon Dioxide Anion Gap BUN Creatinine GFR Calculation BUN/Creatinine Ratio Glucose POC Glucose 239 H 137 H 173 H Calculated Osmolality Calcium Magnesium 07/21/17 07/21/17 07/21/17 06:33 06:33 06:54 WBC 6.6 RBC 3.18 L Hgb 9.4 L Hct 28.2 L MCV 88.7 MCH 30 MCHC 33.3 RDW 14.4 Plt Count 294 MPV 9.4 L Neut % (Auto) 66.1 Lymph % (Auto) 18.4 L [place] % (Auto) 10.0 Eos % (Auto) 3.5 Baso % (Auto) 0.6 Neut # (Auto) 4.4 Lymph # (Auto) 1.2 L [place] # (Auto) 0.7 Eos # (Auto) 0.2 Baso # (Auto) 0.0 Immature Gran % 1.4 Nucleated RBC % 0.0 Immature Gran # 0.09 Nucleated RBCs # 0.00 Immature Plt Fraction 0.0 Sodium 143 Potassium 3.9 Chloride 109 H Carbon Dioxide 27 Anion Gap 10.9 BUN 42 H Creatinine 2.10 H GFR Calculation 27 BUN/Creatinine Ratio 20.00 Glucose 89 POC Glucose 94 Calculated Osmolality 294.0 Calcium 7.8 L Magnesium 2.0 Quality Measures - VTE Contraindication to Pharmacological VTE Prophylaxis: High Risk of Bleeding Specialty Discharge - Follow Up or Referrals Follow up with: Madhav Fernandez MD [Physician] - 08/08/17 10:00 am Ildefonso Nelson MD [Physician] - 08/22/17 9:40 am I, Gorge Saxena MD, personally performed the services described in this documentation, ascribed by Caterina Medina RN in my presence, and it is both accurate and complete 528 .
--- NOTE | 2017-07-26 08:26 | Physician Query Form ---
CLICK EDIT DOCUMENT TO SELECT QUERY ANSWER --> OK --> SIGN Radha Underwood RN Clinical Panel Instrument Repairer W) [phone] (f) [phone] [email or web address] PROVIDERS: Make your selection(s) from the choices in EACH section by typing an "x" and enter comments in the comment section. Please use your independent medical judgment in providing your response. This request does not imply that any particular answer is desired or expected. CLINICAL INDICATORS: (Providers should not edit this section) Based on documentation of "Diabetic ulcerations of right lower extremity". Please clarify the depth/severity of the ulcers. Based on the above, could you please provide further information regarding the ulcer in each section below: Specific location of the ulcer, including laterality: DEPTH/SEVERITY OF ULCER: ( ) Limited to the breakdown of skin ( ) With fat layer exposed ( ) With necrosis of muscle ( ) With necrosis of bone ( ) Other ( x) Clinically unable to determine-Due to eschars and necrotic tissue; the patient had ischemic gangrene of the extremity. If debridement is performed, indicate if excisional or non-excisional and the depth of the debridement: COMMENTS: PLEASE ALSO DOCUMENT RESPONSE IN PROGRESS NOTES AND/OR DISCHARGE SUMMARY Use of terms such as suspected, likely, or probable (associated with a specific diagnosis that is being evaluated, monitored, or treated as if it exists) are acceptable and can be restated in the discharge summary if not ruled out. MTDD
== END 2017-07-21 15:56 | disposition home health service (06) | DRG 240 ==
LOC: N.3E 11:46 → N.ICU 07-13 13:01 → N.3E 07-14 11:58
PROVIDERS: ADMIT Specialist; ATTEND Specialist

== ENCOUNTER 2018-06-06 15:57 | Observation (INO) ==
[2018-06-06 18:22] LABS: Basophils % 0.5 % (0.0-0.8); Eosinophils # 0.3 10*3/uL (0.0-0.87); Hematocrit 24.2 VOL% (42.0-52.0); Hemoglobin 7.9 GM/DL (14.0-18.0); Lymphocytes # 1.3 10*3/uL (1.4-4.0); Lymphocytes % 35.1 % (21.2-54.2); Mean Corpuscular HGB Conc 32.6 GM/DL (32-36); Mean Corpuscular Hemoglobin 27 PG (27-34); Mean Corpuscular Volume 83.2 FL (87-102); Monocytes # 0.4 10*3/uL (0.11-0.8); Neutrophils # 1.7 10*3/uL (1.4-7.4); Neutrophils % 45.4 % (38.7-73.9); Platelet Count 174 T/CUMM (130-400); Red Blood Count 2.91 MC/CUMM (3.8-5.5); White Blood Count 3.7 T/CUMM (4-12)
[2018-06-06 18:38] LABS: Apearance,Urine CLEAR (Clear); Bilirubin,Urine Negative (Negative); Blood, Urine Negative (Negative); Glucose,Urine (UA) Negative (Negative); Ketones,Urine Negative (Negative); Nitrite,Urine Negative (Negative); Protein,Urine Negative; RBC,Urine <1 /HPF (0-4); Squamous Epithelial Cell,Urine Occasional /HPF (0-10); Urine Color Straw (Yellow); Urine Specific Gravity 1.005 (1.001-1.035); Urine Urobilinogen < 2.0 EU/DL (0.2-1.0); WBC,Urine <1 /HPF (0-6)
[2018-06-06 18:41] LABS: Alanine Aminotransferase 12 U/L (16-61); Albumin 3.4 G/DL (3.4-5.0); Alkaline Phosphatase 119 U/L (45-117); Aspartate Amino Transferase 16 U/L (0-37); Bilirubin,Total < 0.39 MG/DL (0.2-1.0); Blood Urea Nitrogen 53 MG/DL (7-18); Calcium 7.5 MG/DL (8.5-10.1); Glucose 83 MG/DL (74-106); Osmolality,Calculated 291.4 MOS/KG (273-304); Potassium 5.2 MMOL/L (3.5-5.1); Sodium 140 MMOL/L (136-145); Total Protein 7.7 G/DL (6.4-8.3)
[2018-06-06] MEDS ORDERED: ACETAMINOPHEN 325 MG TABLET PO PRN (19:57)
[2018-06-06] MEDS ORDERED: traZODone 50 MG TABLET PO PRN (19:57)
[2018-06-06] MEDS ORDERED: GLUCAGON 1 MG VIAL IM PRN (19:57)
[2018-06-06] MEDS ORDERED: DEXTROSE 50% 25 GM/50 ML VIAL IV PRN (19:57)
[2018-06-06] MEDS ORDERED: PROMETHAZINE 25 MG TABLET PO PRN (19:57)
[2018-06-06] MEDS ORDERED: SODIUM CHLORIDE 0.9% 1,000 ML IV PRN (20:03)
[2018-06-06 20:46] LABS: % Iron Saturation 8.1 % (18-50); Ferritin 11.7 ng/ml (26-388)
[2018-06-06] MEDS: INSULIN REGULAR 100 UNIT/ML SUBCUT SCH ×2 (22:27→23:11)
[2018-06-06] MEDS: SODIUM CHLORIDE 0.9% 1,000 ML IV SCH ×2 (22:31→22:34)
[2018-06-07 07:52] LABS: Eosinophils # 0.3 10*3/uL (0.0-0.87); Eosinophils % 8.4 % (0.00-10.9); Hematocrit 33.2 VOL% (42.0-52.0); Immature Granulocytes % 0.3 %; Immature Granulocytes Absolute 0.01 #; Lymphocytes # 0.9 10*3/uL (1.4-4.0); Lymphocytes % 29.8 % (21.2-54.2); Mean Corpuscular HGB Conc 32.5 GM/DL (32-36); Mean Corpuscular Hemoglobin 28 PG (27-34); Mean Corpuscular Volume 84.7 FL (87-102); Mean Platelet Volume 9.9 FL (9.6-12.0); Monocytes # 0.4 10*3/uL (0.11-0.8); Monocytes % 11.3 % (1.7-12.7); Neutrophils # 1.5 10*3/uL (1.4-7.4); Neutrophils % 49.2 % (38.7-73.9); Platelet Count 161 T/CUMM (130-400); Red Cell Distribution Width 17.1 % (9.3-17.3); White Blood Count 3.1 T/CUMM (4-12)
[2018-06-07 07:53] LABS: Red Blood Count 3.92 MC/CUMM (3.8-5.5)
[2018-06-07 07:54] LABS: Hemoglobin 10.8 GM/DL (14.0-18.0)
[2018-06-07 08:00] LABS: Calcium 8.3 MG/DL (8.5-10.1); Osmolality,Calculated 297.8 MOS/KG (273-304); Potassium 5.3 MMOL/L (3.5-5.1)
[2018-06-07] MEDS: INSULIN REGULAR 100 UNIT/ML SUBCUT SCH ×3 (10:05→17:35)
[2018-06-07] MEDS ORDERED: SODIUM POLYSTYRENE SULFATE 15 GM/60 ML BOTTLE PO ONE (13:15)
[2018-06-07] MEDS ORDERED: LIDOCAINE 1% 20 ML VIAL MISC INJ ONE (14:55)
[2018-06-07 17:07] VITALS: BP 157/70
== END 2018-06-07 18:26 | disposition home or self-care (01) ==
LOC: N.EDINP 15:57 → N.ED 15:57 → N.EDINP 21:42 → N.5E 23:07
PROVIDERS: ADMIT Internal Medicine Geriatric Medicine; ATTEND Internal Medicine Geriatric Medicine

== ENCOUNTER 2019-11-14 16:58 | Inpatient (IN) ==
[2019-11-14] MEDS ORDERED: INFLUENZA VIRUS VACCINE 0.5 ML SYRINGE IM ONE (22:17)
[2019-11-14] MEDS ORDERED: PNEUMOCOCCAL VACCINE (13 VALENT) 0.5 ML SYRINGE IM ONE (22:20)
[2019-11-14] MEDS ORDERED: ONDANSETRON 4 MG/2 ML VIAL IV PRN (22:46)
[2019-11-14] MEDS ORDERED: ACETAMINOPHEN 325 MG TABLET PO PRN (22:46)
[2019-11-15] MEDS ORDERED: GLUCAGON 1 MG VIAL IM PRN (00:22)
[2019-11-15] MEDS ORDERED: DEXTROSE 50% 25 GM/50 ML VIAL IV PRN (00:22)
[2019-11-15] MEDS ORDERED: HEPARIN DRIP 25,000 UNITS/500 ML PREMIX IV SCH (00:30)
[2019-11-15] MEDS: INSULIN REGULAR 100 UNIT/ML SUBCUT SCH ×5 (04:14→21:55)
[2019-11-15 07:01] LABS: Basophils % 0.5 % (0.0-0.8); Hematocrit 25.9 VOL% (42.0-52.0); Hemoglobin 7.7 GM/DL (14.0-18.0); Immature Granulocytes % 0.3 %; Immature Granulocytes Absolute 0.01 #; Lymphocytes # 0.8 10*3/uL (1.4-4.0); Lymphocytes % 21.9 % (21.2-54.2); Mean Corpuscular HGB Conc 29.7 GM/DL (32-36); Mean Corpuscular Volume 93.8 FL (87-102); Mean Platelet Volume 9.7 FL (9.6-12.0); Monocytes % 9.4 % (1.7-12.7); Neutrophils % 67.9 % (38.7-73.9); Platelet Count 176 T/CUMM (130-400); Red Blood Count 2.76 MC/CUMM (3.8-5.5); Red Cell Distribution Width 16.2 % (9.3-17.3); White Blood Count 3.8 T/CUMM (4-12)
[2019-11-15 07:24] LABS: Alanine Aminotransferase < 9 U/L (16-61); Albumin 2.8 G/DL (3.4-5.0); Alkaline Phosphatase 81 U/L (45-117); Aspartate Amino Transferase 11 U/L (0-37); Blood Urea Nitrogen 34 MG/DL (7-18); Calcium 8.3 MG/DL (8.5-10.1); Estimated Glom Filtration Rate 26 ML/MIN; Glucose 148 MG/DL (74-106)
[2019-11-15 08:47] LABS: INR 1.2; PT Patient Result 12.5 SECS (9.6-12.2)
[2019-11-15] MEDS ORDERED: ISOSORBIDE DINITRATE 10 MG TABLET PO SCH (09:00)
[2019-11-15] MEDS ORDERED: FUROSEMIDE 40 MG TABLET PO SCH (09:00)
[2019-11-15] MEDS ORDERED: SPIRONOLACTONE 25 MG TABLET PO SCH (09:00)
[2019-11-15] MEDS ORDERED: ASPIRIN EC 81 MG TABLET PO SCH (09:00)
[2019-11-15] MEDS ORDERED: hydrALAZINE 25 MG TABLET PO SCH (09:00)
[2019-11-15] MEDS ORDERED: predniSONE 10 MG TABLET PO SCH (09:00)
[2019-11-15] MEDS ORDERED: lisinopriL 2.5 MG TABLET PO SCH (09:00)
[2019-11-15] MEDS: SIMVASTATIN 10 MG TABLET PO SCH (10:13)
[2019-11-15] MEDS: DOCUSATE SODIUM 100 MG CAPSULE PO SCH ×2 (10:13→21:55)
[2019-11-15] MEDS: carvediloL 3.125 MG TABLET PO SCH ×2 (10:13→17:17)
[2019-11-15] MEDS: PANTOPRAZOLE 40 MG TABLET PO SCH (10:14)
[2019-11-15] MEDS: FUROSEMIDE 40 MG/4 ML VIAL IV SCH (17:16)
[2019-11-15] MEDS ORDERED: RANITIDINE 150 MG TABLET PO SCH (21:00)
[2019-11-16 04:46] LABS: Basophils % 0.5 % (0.0-0.8); Eosinophils % 0.5 % (0.00-10.9); Hematocrit 23.4 VOL% (42.0-52.0); Hemoglobin 7.1 GM/DL (14.0-18.0); Immature Granulocytes % 0.7 %; Immature Granulocytes Absolute 0.03 #; Lymphocytes # 0.6 10*3/uL (1.4-4.0); Lymphocytes % 15.1 % (21.2-54.2); Mean Corpuscular HGB Conc 30.3 GM/DL (32-36); Mean Corpuscular Volume 92.5 FL (87-102); Mean Platelet Volume 9.6 FL (9.6-12.0); Monocytes % 9.9 % (1.7-12.7); NRBC # 0.02 10*3/uL; Neutrophils % 73.3 % (38.7-73.9); Platelet Count 160 T/CUMM (130-400); Red Blood Count 2.53 MC/CUMM (3.8-5.5); Red Cell Distribution Width 16.2 % (9.3-17.3)
[2019-11-16 05:22] LABS: Calcium 8.1 MG/DL (8.5-10.1); Osmolality,Calculated 291.1 MOS/KG (273-304)
[2019-11-16] MEDS: INSULIN REGULAR 100 UNIT/ML SUBCUT SCH ×3 (08:41→16:01)
[2019-11-16] MEDS ORDERED: SODIUM CHLORIDE 0.9% 1,000 ML IV PRN (09:10)
[2019-11-16] MEDS: FUROSEMIDE 40 MG/4 ML VIAL IV SCH ×2 (09:23→16:28)
[2019-11-16] MEDS: carvediloL 3.125 MG TABLET PO SCH ×2 (09:24→16:28)
[2019-11-16] MEDS: DOCUSATE SODIUM 100 MG CAPSULE PO SCH (09:24)
[2019-11-16] MEDS: PANTOPRAZOLE 40 MG TABLET PO SCH (09:24)
[2019-11-16] MEDS: SIMVASTATIN 10 MG TABLET PO SCH (09:24)
[2019-11-16 16:09] VITALS: BP 146/62
[2019-11-19] MEDS ORDERED: ERGOCALCIFEROL 50,000 UNIT CAPSULE PO SCH (09:00)
== END 2019-11-16 17:57 | disposition home or self-care (01) | DRG 291 ==
LOC: N.2E 21:42 → INTOOBSV 21:42
PROVIDERS: ADMIT Internal Medicine; ATTEND Internal Medicine
PROC: IRTHORA (2019-11-16 10:40)